=== PATIENT | male | born 1945 | race Caucasian/White ===

== ENCOUNTER → 2018-11-01 06:25 | Outpatient (CLI) | payer MEDICARE, OTHER, SELFPAY ==
[2018-10-18 13:47] VITALS: BMI 30.3
--- NOTE | 2018-11-01 06:26 | MRI_ITS ---
STUDY: MRI LEFT HAND WITH AND WITHOUT CONTRAST (ATTENTION INDEX FINGER) REASON FOR EXAM: Pain, swelling and redness of the distal phalanx after radiation therapy of the finger 30 years ago. TECHNIQUE: Standardized fat and water weighted pulse sequences were obtained in all 3 orthogonal planes before and after intravenous administration of 19 mL of Dotarem. COMPARISON: None. FINDINGS: There is deformity of the distal phalanx of the index finger with thinning of the ungual tuft (T1 coronal image 7). There is bone edema of the distal phalanx of the index finger (inversion recovery coronal images 6, 7) with contrast enhancement (postcontrast T1 coronal image 7). Normal middle and distal phalanges of the index finger. Normal visualized distal second metacarpal. Normal flexor and extensor tendons of the index finger. There is a very small subchondral cyst in the second metacarpal head (inversion recovery coronal image 7). Otherwise, normal second metacarpophalangeal joint. Normal proximal and distal interphalangeal joints of the second digit. There is edema in the subcutis adipose space of the distal aspect of the second digit with skin thickening (inversion recovery coronal images 4-7) and contrast enhancement (postcontrast T1 axial images 23-26), especially at the ulnar aspect. There is no discrete soft tissue mass. MRI/Upper Ext No Joint W/WO Cont IMPRESSION: Deformity of the second distal phalanx with bone edema and edema in the subcutis adipose space of the distal second finger with skin thickening, apparently a sequelae of remote radiation therapy. Electronically Signed: Ayo Hayward MD at 8:55 EDT Tel , Service support ,
[2018-11-01 06:51] LABS: CREATININE FINGERSTICK 1.2 mg/dL (0.70-1.30); EGFR FINGERSTICK > 60.0000 mL/min (>60)
== END ==
PROVIDERS: Family Provider Family Medicine; PCP Family Medicine; Referring Provider Surgery; Visit Provider Surgery
DX: Z01.812 Encounter for preprocedural laboratory examination (principal); Q79.9 Congenital malformation of musculoskeletal system, unspecified; D49.2 Neoplasm of unspecified behavior of bone, soft tissue, and skin; L98.499 Non-pressure chronic ulcer of skin of other sites with unspecified severity; L60.9 Nail disorder, unspecified; T66.XXXS Radiation sickness, unspecified, sequela; Z80.8 Family history of malignant neoplasm of other organs or systems; Z85.828 Personal history of other malignant neoplasm of skin
CPT/HCPCS: 73220; A9575

== ENCOUNTER 2018-11-10 10:50 | Day surgery (SDC) | payer MEDICARE, OTHER, SELFPAY ==
[2018-10-18 13:47] VITALS: BMI 30.3
--- NOTE | 2018-11-09 20:10 | HP.PCM_ITS ---
History and Physical Date of Admission: 11/10/18 HISTORY OF PRESENT ILLNESS 73 year old man presents with a painful nonhealing radiation ulcer left index finger tip. Patient is right hand dominant. He states he has received radiation therapy to his left index finger tip about 50 years ago for wart growth underneath his nail. It lasted about 10 years before he noticed some recurrence of the growth. Over the years, he developed a firmness to the finger tip with fibrosis and a decrease in the fat pad. He had an xray done to his left index finger on 10/02/18. It showed a deformity of the distal phalanx index finger with well-defined defect involving the mid to distal radial aspects. There are adjacent small bony fragments. He is able to do his activities of daily living until the finger tip gets bumped when he gets a sharp pain. An MRI was done on 11/01/18 which showed deformity of the second distal phalanx with bone edema and edema in the subcutis adipose space of the distal second finger with skin thickening, apparently a sequelae of remote radiation therapy. He presents today for further evaluation and treatment. PAST MEDICAL HISTORY Cataracts, bilateral Skin cancer High blood pressure PAST SURGICAL HISTORY Achilles tendon repair hernia repair nasal polypectomy ALLERGIES No Known Allergies MEDICATIONS Ibuprofen [Advil] Losartan Potassium Metronidazole [Metrogel] Omeprazole [Prilosec] aspirin clobetasol 0.05 % topical cream sildenafil doxycycline monohydrate FAMILY HISTORY Mother - Hypertension, Skin cancer SOCIAL HISTORY Smoking Status: Former smoker alcohol intake: current details: A LITTLE HERE AND THERE substance use type: does not use REVIEW OF SYSTEMS General - Denies fever, fatigue, and weight loss. Eyes - Has cataracts. Denies glaucoma. ENT - Denies nasal congestion and sore throat. Endocrine - Denies excessive thirst and urination. Skin - Has personal history of skin cancer, basal cell carcinoma excised from right caodaism and from the right back. Has painful nonhealing radiation ulcer left index finger tip. Musculoskeletal - Denies joint pain, joint stiffness, weakness of muscles and joints, back pain, and arthritis. Neuro - Denies headaches. Cardiovascular - Denies chest pain, fatigue, and shortness of breath with exertion. Psych - Denies anxiety and depression. Respiratory - Denies chronic cough and shortness of breath. Gastrointestinal - Denies nausea, vomiting, diarrhea, and constipation. Hematologic - Denies abnormal bruising and bleeding. Genitourinary - Denies hematuria and urinary frequency. PHYSICAL EXAMINATION General - Alert and Oriented HEENT - PERRL. EOMI. Throat is clear. No suspicious lesions noted. Neck - Supple and nontender. No cervical adenopathy. No suspicious lesions noted. Lungs - Clear to auscultation. Heart - Regular rate and rhythm. Abdomen - Soft and nondistended. Extremities - FROM. No axillary adenopathy. Radial pulses are palpable. On the left index finger tip is a firm nodular tip with a decrease in the volar fat pad. There is a small ulceration present in the radiated tip area. In the subungual area is a lesion that has caused some nail growth irregularities. Fingers are warm with good capillary refill. No sensory deficits. Neuro - CN II-XII grossly intact. Psych - Normal mood and affect. ASSESSMENT 1. Nonhealing radiation ulcer left index finger tip. 2. Subungual mass left index finger. 3. Deformity nail bed left index finger. 4. Late effect radiation left index finger. 5. Bony defect radial aspect distal phalanx left index finger. 6. Personal history of skin cancer. 7. Family history of skin cancer. PLAN Xray reviewed. With the bony defect present, an MRI was done to further assess the bony defect. MRI showed deformity of the second distal phalanx with bone edema and edema in the subcutis adipose space of the distal second finger with skin thickening, apparently a sequelae of remote radiation therapy.. Patient is at risk for osteomyelitis, so will write a script for Doxycycline that he can use when he notices a flare up such as increasing redness, pain, or swelling. First we need to establish a diagnosis. Will need excision of this subungual mass which includes a partial ostectomy and excision of the nail bed complex. The nonhealing radiation ulcer will also be excised as well. The wound will be left open initially. Will proceed with daily Silver dressing changes. Depending on the culture and the Pathology, a positive culture will need antibiotic therapy. If osteomyelitis is present, then IV antibiotics would be necessary. Also will [facility] for [facility] for HBO treatments which should help the healing process. Would like to do the HBO treatments prior to wound closure. To maintain length, a two stage thenar flap or a two stage cross finger flap would be performed. The second stage division and inset of the flap would occur in 3 weeks. At the time of the excision, a frozen section will be done and sent to Pathology for analysis to rule out carcinoma. If carcinoma is present, then tip amputa tion would be necessary. Surgery will be done on an outpatient basis under general anesthesia. Patient was informed of the risks and complications of the procedure including alternatives to surgery. These were discussed with the patient personally. Patient voices understanding and wishes to proceed. Some of the risks and complications were included in a form from the [employer]. Some of the risks and complications that were discussed included but were not inclusive of failure to diagnose including symptom relief, pain, infection, numbness, stiffness, loss of digit, RSD (CRPS), need for further surgery, contracture, and wound healing problems.
[2018-11-10] MEDS: Mupirocin Ointment 22gm Tube 1 APPLIC (01:00)
[2018-11-10 11:05] VITALS: BP 146/80; PULSE 83; RESP 18; TEMP 36.5; O2SAT 98; BMI 29.3
[2018-11-10] MEDS: Cefazolin 2 GM in 0.9% Normal Saline 100 ML IV (12:00)
--- NOTE | 2018-11-10 12:15 | LES_PTH ---
PATIENT: GIRMA ARMIJO LOC: [facility] [place] U#:[id number] AGE/SX: 73/M ROOM: RE11/10/[address]: Dr. Eduardo Barbour MD : 1945 BED: DIS: 11/10/2018 SPEC #: [id number] RECD: 11/10/18 12:48 STATUS: LORENZA MARTIN #: [id number] AJITH: 11/10/18 12:[address]: Eduardo Barbour DEPT: SURGICAL PATHOLOGY RECD BY: Yelitza Mccormick ENTERED: 11/10/18 13:17 SP TYPE: Lesion OTHR DR: Dr. Felipe Dias III, MD Tissues: A - Skin of finger, NOS B - Skin of finger, NOS C - Bone of hand, NOS Procedures: Decalcification bone/plaque Frozen Section (charge) Surgery Specimen Level III HEADER OPERATION: Surgical prep index finger with excision radiation ulcer PRE-OP DIAGNOSIS: Nonhealing radiation ulcer left hand fingertip; subungual mass left index finger; deformity nailbed left index finger; late effect radiation left index finger; bony defect radial aspect distal phalanx left index finger, personal and family history skin cancer TISSUE SUBMITTED: A - Subungual lesion left index finger, B - Left hand index finger soft tissue, C - Left hand index finger bone FROZEN SECTION DIAGNOSIS A. Subungual lesion left index finger, biopsy: Negative for malignancy. MONICA:cindy 11/10/18 MICROSCOPIC DIAGNOSIS A. Subungual lesion left index finger, biopsy: Hyperkeratosis and solar elastosis. Negative for malignancy. B. Soft tissue left index finger: Acute and chronic inflammation and granulation tissue reaction. Hyperkeratosis and solar elastosis. See comment. C. Left hand index finger bone, biopsy: Fragments of bone, negative for acute osteomyelitis. MONICA:cindy 11/16/18 COMMENT B. Pieces of hyperkeratotic skin consistent with nail are also noted. MICROSCOPIC DESCRIPTION Slides are reviewed. GROSS DESCRIPTION A - Received fresh for frozen section diagnosis labeled with the patient's name is a specimen designated subungual lesion left index finger. The specimen consists of a piece of coburn-white skin, crescent-shaped, measuring 1 x 0.2 x 0.1 cm. The entire specimen is submitted for frozen section diagnosis in one cassette. / SJ: 11/10/18 B - Received in fixative is one container labeled with the patient's name and designated soft tissue left index finger. The specimen consists of multiple irregular fragments of coburn soft tissue, a portion of skin and a portion of fingernail. The coburn portions of soft tissue measure in aggregate 1.5 x 1.5 x 0.5 cm. The skin portion measures 1.4 x 0.6 cm and is excised to a depth of 0.5 cm. The skin surface is coburn-white and firm. The portion of fingernail measures 1.8 cm in length x 0.8 cm in width x 0.1 cm in thickness. The nail surface is smooth. The nail is translucent to focally opaque. The specimen is totally submitted in two cassettes as follows: 1 - skin and soft tissue, 2 - nail. / CE: 11/13/18 C - Received in fixative is one container labeled with the patient's name and designated left hand index finger bone. The specimen consists of five coburn-yellow fragments of bone that in aggregate measure 0.5 x 0.3 x 0.2 cm. The specimen is totally submitted after decalcification in one cassette. / CE: 11/13/18 TC:3 CPT: 24188 x3, 53001, 71645
--- NOTE | 2018-11-10 13:14 | PCM.OPRPT ---
Report of Operation Date of Procedure: 11/10/18 Pre-Operative Diagnosis: 1. Nonhealing radiation ulcer left index finger tip. 2. Subungual mass left index finger. 3. Deformity nail bed left index finger. 4. Late effect radiation left index finger. 5. Bony defect radial aspect distal phalanx left index finger. 6. Personal history of skin cancer. 7. Family history of skin cancer. Post-Operative Diagnosis: Same. Surgery/Procedure Performed:: Surgical preparation left index finger with excision nonhealing radiation ulcer scar contour deformity and subungual mass with frozen section and nail bed complex deformity with partial ostectomy distal phalanx for osteomyelitis (1.44 cm2). Description of Surgical Findings:: 73 year old man presents with a painful nonhealing radiation ulcer left index finger tip. Patient is right hand dominant. He states he has received radiation therapy to his left index finger tip about 50 years ago for wart growth underneath his nail. It lasted about 10 years before he noticed some recurrence of the growth. Over the years, he developed a firmness to the finger tip with fibrosis and a decrease in the fat pad. He had an xray done to his left index finger on 10/02/18. It showed a deformity of the distal phalanx index finger with well-defined defect involving the mid to distal radial aspects. There are adjacent small bony fragments. He is able to do his activities of daily living until the finger tip gets bumped when he gets a sharp pain. An MRI was done on 11/01/18 which showed deformity of the second distal phalanx with bone edema and edema in the subcutis adipose space of the distal second finger with skin thickening, apparently a sequelae of remote radiation therapy. Patient was informed of the risks and complications of the procedure including alternatives to surgery. These were discussed with the patient personally. Patient voices understanding and wishes to proceed. Some of the risks and complications were included in a form from the [employer]. Encouraged patient to stop smoking as it may have deleterious effects on wound healing. Total tourniquet time - 22 minutes. Size of defect left index finger tip - 1.2 x 1.2 x 0.7 cm. 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 Specimen's removed: 1. Subungual mass left index finger to Pathology as a frozen section. 2. Nonhealing radiation ulcer scar contour deformity and nail bed complex deformity left index finger soft tissue to Pathology and Microbiology. 3. Nonhealing radiation ulcer scar contour deformity and nail bed complex deformity left index finger bone to Pathology and Microbiology. Drains: None. Estimated Blood Loss (mL): 2 ml. Description of Procedure: Patient was taken to OR in supine position and was given IV sedation. The left hand was prepped and draped in the usual fashion. SCD's were placed for DVT prophylaxis. Perioperative antibiotics were given intravenously. Using xylocaine and epinephrine, a digital metacarpal block was administered. After waiting 5 minutes for the anesthetic to take effect, I placed a digital tourniquet. Under loupe magnification, I proceeded with removal of the nail plate with a scalpel and elevator. There was irregular thickening of the nail bed. This area of irregular thickening was excised and sent to Pathology as a frozen section. Frozen section showed no carcinoma. Exposed bone was seen. At the tip of the finger, there was an intermittent nonhealing radiation ulcer scar contour deformity that was excised down to the distal phalanx. Using a rongeur, a partial ostectomy of the distal phalanx was done for osteomyelitis. About half the bone was excised. The bone was very soft indicative of radiation damage, or age, or osteomyelitis. A rasp was used to smooth out the bony edges. The rest of the nail bed complex including matrix was excised. Half the soft tissue and half the bone was sent to Pathology for analysis to rule out carcinoma and to evaluate for osteomyelitis. Half the soft tissue and half the bone was sent to Microbiology for culture. A positive culture will necessitate antibiotic therapy. The size of the wound after excision was 1.2 x 1.2 x 0.7 cm. The tourniquet was released after 22 minutes. Hemostasis was obtained with electrocautery. The wound was dressed with Aquacel Silver followed by 4-0 Nylon tie over stent suture dressing. The finger was then dressed with 2x2 gauze followed by 2 inch Alex wrap. Patient tolerated the procedure well and was sent to PACU in satisfactory condition. Patient will be sent home on antibiotics and pain medication. Patient will followup in the office on Tuesday for a Silver dressing change and to instruct the patient and family on the Silver dressing changes. Will also discuss the Pathology report and the Microbiology report. A positive culture will necessitate antibiotic therapy. Grafts/Implants Used: None. - Complications None. - Admit VTE Documentation VTE Present on Admission: No VTE Mechan Device Prophylaxis: SCD's VTE Pharm Prophylaxis ordered?: No Code Visit Surgery Charges CPT - 75529 ICD-10 - L98.499, L60.9, D49.2, T66.xxxS, Z85.828, Z80.8 93989 Q79.9, T66.xxxS, L98.499, L60.9, D49.2, Z85.828, Z80.8
[2018-11-10 13:19] VITALS: BP 145/72; BP 146/80; PULSE 85; RESP 14; TEMP 37.1; O2SAT 95
[2018-11-10 13:25] VITALS: BP 138/71; BP 146/80; PULSE 85; RESP 16; O2SAT 96
--- NOTE | 2018-11-10 13:29 | PCM.DC ---
You will use the following diet at home:: No restrictions Discharge Activity: May not drive while taking narcotic pain medications., May Shower - tomorrow. place plastic bag over left hand when showering., - - elevate left hand. no heavy lifting left hand. May shower in (days): 1 - wear plastic bag over left hand when showering. May resume sexual activity in: No Restrictions Weight Bearing Status: Weight bearing as tolerated Lifting Restrictions: 20 lbs. Keep extremity elevated above heart level: Left Arm Call your doctor if your incision/area has: Continuous Slow Oozing, Sudden Increased Bleeding, Increased Pain/ Swelling, Increased Redness, Foul Smelling Discharge, Swelling at the incision site Call your doctor if you observe: Fever of 101 or Higher, Coldness, Increased Pain, Shortness of breath, Chest pain, Calf discomfort, Uncontrolled pain Suture Line Care: - - daily aquacel silver dressing changes. Change Dressing in (Days):: 3 - will change dressing in office and instruct patient on aquacel silver dressing changes. Cleanse incision/area with: - - wear plastic bag over left hand when showering. Additional Instructions: Patient has Doxycycline at home and will continue them postoperatively. Allergies/Adverse Reactions: Allergies No Known Allergies Allergy (Verified 11/07/18 10:53) Medications to take at Discharge Losartan Potassium 25 mg PO DAILY 09/03/16 Omeprazole [Prilosec] 20 mg PO QHS 09/03/16 aspirin 81 mg tablet,delayed release 81 mg PO DAILY 10/09/18 clobetasol 0.05 % topical cream 1 applic TOPICAL .PRN g 10/09/18 sildenafil 100 mg tablet 100 mg PO DAILY PRN 10/09/18 Metronidazole [Metrogel] 60 gm TP DAILY 11/07/18 Doxycycline Monohydrate 100 mg PO BID 30 Days #60 cap 11/10/18 Lactobacillus Acidophilus/Fos [Acidophilus Probiotic Tablet] 1 ea PO BID #60 tab 11/10/18 Oxycodone HCl/Acetaminophen [Percocet 5/325] 1 - 2 tab PO 4X/DAY PRN PRN 5 Days #40 tab 11/10/18 The following prescriptions were given: Oxycodone HCl/Acetaminophen [Percocet 5/325] 1 - 2 tab PO 4X/DAY PRN PRN 5 Days #40 tab PRN Reason: Pain Doxycycline Monohydrate 100 mg PO BID 30 Days #60 cap Lactobacillus Acidophilus/Fos [Acidophilus Probiotic Tablet] 1 ea PO BID #60 tab Primary Care Physician: Felipe Dias III, MD [Primary Care Provider] - Test Results: Test results from this visit will be discussed in further detail at your follow-up appointment, if applicable. Please Follow Up With: Eduardo Barbour MD When: tuesday11/13/18. Call [phone] for appt. Proposed Discharge Date: 11/10/18
[2018-11-10 13:30] VITALS: BP 133/83; BP 146/80; PULSE 81; RESP 16; O2SAT 96
--- NOTE | 2018-11-10 13:33 | DCINST_ITS ---
You will use the following diet at home:: No restrictions Discharge Activity: May not drive while taking narcotic pain medications., May Shower - tomorrow. place plastic bag over left hand when showering., - - elevate left hand. no heavy lifting left hand. May shower in (days): 1 - wear plastic bag over left hand when showering. May resume sexual activity in: No Restrictions Weight Bearing Status: Weight bearing as tolerated Lifting Restrictions: 20 lbs. Keep extremity elevated above heart level: Left Arm Call your doctor if your incision/area has: Continuous Slow Oozing, Sudden Increased Bleeding, Increased Pain/ Swelling, Increased Redness, Foul Smelling Discharge, Swelling at the incision site Call your doctor if you observe: Fever of 101 or Higher, Coldness, Increased Pain, Shortness of breath, Chest pain, Calf discomfort, Uncontrolled pain Suture Line Care: - - daily aquacel silver dressing changes. Change Dressing in (Days):: 3 - will change dressing in office and instruct patient on aquacel silver dressing changes. Cleanse incision/area with: - - wear plastic bag over left hand when showering. Additional Instructions: Patient has Doxycycline at home and will continue them postoperatively. Allergies/Adverse Reactions: Allergies No Known Allergies Allergy (Verified 11/07/18 10:53) Medications to take at Discharge Losartan Potassium 25 mg PO DAILY 09/03/16 Omeprazole [Prilosec] 20 mg PO QHS 09/03/16 aspirin 81 mg tablet,delayed release 81 mg PO DAILY 10/09/18 clobetasol 0.05 % topical cream 1 applic TOPICAL .PRN g 10/09/18 sildenafil 100 mg tablet 100 mg PO DAILY PRN 10/09/18 Metronidazole [Metrogel] 60 gm TP DAILY 11/07/18 Doxycycline Monohydrate 100 mg PO BID 30 Days #60 cap 11/10/18 Lactobacillus Acidophilus/Fos [Acidophilus Probiotic Tablet] 1 ea PO BID #60 tab 11/10/18 Oxycodone HCl/Acetaminophen [Percocet 5/325] 1 - 2 tab PO 4X/DAY PRN PRN 5 Days #40 tab 11/10/18 The following prescriptions were given: Oxycodone HCl/Acetaminophen [Percocet 5/325] 1 - 2 tab PO 4X/DAY PRN PRN 5 Days #40 tab PRN Reason: Pain Doxycycline Monohydrate 100 mg PO BID 30 Days #60 cap Lactobacillus Acidophilus/Fos [Acidophilus Probiotic Tablet] 1 ea PO BID #60 tab Primary Care Physician: Felipe Dias III, MD [Primary Care Provider] - Test Results: Test results from this visit will be discussed in further detail at your follow- up appointment, if applicable. Please Follow Up With: Eduardo Barbour MD When: tuesday11/13/18. Call [phone] for appt. Proposed Discharge Date: 11/10/18
[2018-11-10 13:34] VITALS: BP 133/70; BP 146/80; PULSE 73; RESP 16; TEMP 37.2; O2SAT 95
[2018-11-10 13:58] VITALS: BP 146/80
== END 2018-11-10 14:03 | disposition home or self-care (01) ==
LOC: SDC 10:51 → AC 10:51
PROVIDERS: Family Provider Family Medicine; PCP Family Medicine; Referring Provider Surgery; Visit Provider Surgery
PROC: (CPT 26236; principal; 2018-11-10 12:00)
DX: L98.499 Non-pressure chronic ulcer of skin of other sites with unspecified severity (principal); L85.9 Epidermal thickening, unspecified; L57.8 Other skin changes due to chronic exposure to nonionizing radiation; X32.XXXA Exposure to sunlight, initial encounter; Y93.9 Activity, unspecified; Y92.9 Unspecified place or not applicable; Y99.9 Unspecified external cause status; T66.XXXS Radiation sickness, unspecified, sequela; L60.9 Nail disorder, unspecified; Q79.9 Congenital malformation of musculoskeletal system, unspecified; Z85.828 Personal history of other malignant neoplasm of skin; Z80.8 Family history of malignant neoplasm of other organs or systems; I10 Essential (primary) hypertension; Z87.891 Personal history of nicotine dependence; Z79.82 Long term (current) use of aspirin; Z79.899 Other long term (current) drug therapy
CPT/HCPCS: 26236; 87070; 87075; 87077; 87102; 87176; 87186; 87205; 87206; 88304; 88305; 88311; 88331; J7120

== ENCOUNTER → 2020-03-05 17:45 | Outpatient (CLI) | payer MEDICARE, OTHER, SELFPAY ==
[2019-01-17 09:16] VITALS: BMI 29.3
== END ==
PROVIDERS: PCP Family Medicine
DX: R19.7 Diarrhea, unspecified (principal)
CPT/HCPCS: 87635; 94799; U0003

== ENCOUNTER → 2022-10-15 | Outpatient (CLI) | payer MEDICARE, OTHER, SELFPAY ==
--- NOTE | 2022-10-15 08:09 | MRI_ITS ---
STUDY: MR PELVIS WITH T WITHOUT CONTRAST REASON FOR EXAM: Male, 76 years old. ELEVATED PSA TECHNIQUE: Standardized fat and water weighted pulse sequences were obtained in all 3 orthogonal planes, pre-and post contrast administration. IV 19ml Clariscan was administered for the contrast portion of the examination. COMPARISON: None. FINDINGS: Prostate measures 4.3 cm AP by 3.88 cm craniocaudal by 3.96 cm transverse. Within the central zone anteriorly and inferiorly there is a nodule which demonstrates contrast enhancement at its periphery of the lower signal centrally. This nodule measures 4.38 x 1 1.41 cm. This is seen on series 11 image 30. In the right anterior central zone on series 11 image 29 there is a nodule with subtle contrast enhancement as per free and central lower signal within nodule measuring 1.26 x 0.79 cm. In the peripheral zone posterior laterally on the left series 11 image 30 demonstrates a nodule with peripheral contrast enhancement measuring 1.23 x 1.28 cm. The capsule of the prostate is normal in appearance. Normal urinary bladder. Normal visualized small intestine. Normal visualized colon. There is no pelvic fluid. There is no pelvic mass lesion or lymphadenopathy. Normal visualized pelvic arteries. Normal osseous structures. Normal abdominal wall. MRI/Pelvis W/WO Contrast IMPRESSION: Enlarged prostate with multiple nodules in the central and peripheral zones detailed above. If biopsy is contemplated attention towards these nodules is advised if clinically warranted. Electronically Signed: Diogenes Soriano MD, JANINA at 8:53 EDT ,
[2022-10-15 08:50] LABS: CREATININE FINGERSTICK < 0.9 mg/dL (0.70-1.30); EGFR FINGERSTICK > 60.0000 mL/min (>60)
== END | disposition home or self-care (01) ==
LOC: MRI 08:06
PROVIDERS: PCP Family Medicine; Referring Provider Urology; Visit Provider Urology
DX: R97.20 Elevated prostate specific antigen [PSA] (principal)
CPT/HCPCS: 72197; A9575

== ENCOUNTER → 2023-04-07 | Outpatient (CLI) | payer MEDICARE, OTHER, SELFPAY ==
--- NOTE | 2023-04-07 | PROSBIL_PTH ---
PATIENT: GIRMA ARMIJO LOC: JARET U#:[id number] AGE/SX: 77/M ROOM: RE04/07/[address]: Dr. Amari Rascon MD : 1945 BED: DIS: 04/07/2023 SPEC #: [id number] RECD: 04/07/23 16:18 STATUS: LORENZA REVic #: [id number] AJITH: 04/07/23 00:[address]: Amari Rascon DEPT: SURGICAL PATHOLOGY RECD BY: Augustine Garcia ENTERED: 04/08/23 07:58 SP TYPE: PROST BX MILO DR: Dr. Jayme Reyse MD Tissues: A - PROSTATE RIGHT B - PROSTATE RIGHT C - PROSTATE RIGHT D - PROSTATE LEFT E - PROSTATE LEFT F - PROSTATE LEFT Procedures: PROSTATE BX HEADER OPERATION: Prostate biopsy PRE-OP DIAGNOSIS: Elevated PSA TISSUE SUBMITTED: A - Right apex, B - Right mid, C - Right base, D - Left apex, E - Left mid, F - Left base MICROSCOPIC DIAGNOSIS A. Right prostate, apex, core biopsy: Focal high-grade prostatic intraepithelial neoplasia (HGPIN). See comment. B. Right prostate, mid, core biopsy: Prostatic adenocarcinoma. [place] grade: 3+4=7 Number of cores involved: 1/2 Proportion of tissue involved: ~20% Perineural invasion: Not identified. Greatest tumor length: 0.5 cm C. Right prostate, base, core biopsy: Prostatic adenocarcinoma. Afua grade: 4+3=7 Number of cores involved: 2/2 Proportion of tissue involved: ~70-80% Perineural invasion: present, focal. Greatest tumor length: 1.0 cm D. Left prostate, apex, core biopsy: Prostatic tissue, negative for malignancy. Focal mild chronic inflammation. E. Left prostate, mid, core biopsy: Prostatic tissue, negative for malignancy. Focal atrophy. F. Left prostate, base, core biopsy: Prostatic tissue, negative for malignancy. SJ:cindy 04/11/2023 COMMENT A. Immunohistochemistry ([id number]) supports the above diagnosis. Case has been reviewed in consultation with Dr. Amador who concurs with the above diagnosis. IDC:AM MICROSCOPIC DESCRIPTION Slides are reviewed. GROSS DESCRIPTION A - Received is one container designated prostate, right apex. The specimen consists of one elongated fragment of light coburn-white soft tissue measuring 0.5 cm in length and 0.1 cm in diameter. The specimen is totally submitted in one cassette. B - Received is one container designated prostate, right mid. The specimen consists of two elongated fragments of light coburn-white soft tissue measuring 1.5 and 1.7 cm in length and 0.1 cm in diameter. The specimen is totally submitted in one cassette. C - Received is one container designated prostate, right base. The specimen consists of two elongated fragments of light coburn-white soft tissue each measuring 1.0 cm in length and 0.1 cm in diameter. The specimen is totally submitted in one cassette. D - Received is one container designated prostate, left apex. The specimen consists of one elongated fragment of light coburn-white soft tissue measuring 1.2 cm in length and 0.1 cm in diameter. The specimen is totally submitted in one cassette. E - Received is one container designated prostate, left mid. The specimen consists of two elongated fragments of light coburn-white soft tissue measuring 1.4 and 1.6 cm in length and 0.1 cm in diameter. The specimen is totally submitted in one cassette. F - Received is one container designated prostate, left base. The specimen consists of two elongated fragments of light coburn-white soft tissue each measuring 1.5 cm in length and 0.1 cm in diameter. The specimen is totally submitted in one cassette. / SJ:rg 04/08/2023 TC:0 CPT: G0146
--- NOTE | 2023-04-07 | IMM_PTH ---
PATIENT: GIRMA ARMIJO LOC: JARET U#:[id number] AGE/SX: 77/M ROOM: RE04/07/[address]: Dr. Amari Rascon MD : 1945 BED: DIS: 04/07/2023 SPEC #: [id number] RECD: 04/11/23 14:45 STATUS: LORENZA REQ #: [id number] AJITH: 04/07/23 00:[address]: Amari Rascon DEPT: IMMUNOHISTOCHEMISTRY RECD BY: Yelitza Mccormick ENTERED: 04/11/23 14:46 SP TYPE: IMMUNO OTHR DR: Dr. Jayme Reyes MD Tissues: A - PROSTATE RIGHT Procedures: P40 (add) 34BE12 (initial) PHYSICIAN & INSTITUTION [place] [phone] SPECIMEN INFORMATION: Tissue Source: Right prostate, apex, core biopsy Clinical Info: Elevated PSA Specimen Number: [id number] CPT code: 91952, 56405 METHODOLOGY: Deparaffinized sections of prefer/formalin-fixed tissue or PAP/DQ stained slides are incubated with monoclonal/polyclonal antibodies/oligonucleotide probes. Localization is made via biotin free immunoperoxidase method. Appropriate controls are performed and reacted as expected. Results on target cell population are indicated in the following table: RESULTS: ANTIBODY / CLONE RESULT Block A P40 (BC28) positive 34BE12 (34BE12) positive These tests were developed and their performance characteristics determined by [facility]. They may not have been cleared or approved by the U.S. Food and Drug Administration. The FDA has determined that such clearance or approval is not necessary. The above immunohistochemical/dualISH markers are ordered and reviewed by the Pathologist. INTERPRETATION: A. Right prostate, apex, core biopsy: High-grade prostatic intraepithelial neoplasia (HGPIN). MONICA:cindy 04/12/2023
== END | disposition home or self-care (01) ==
LOC: LABSPEC 16:25
PROVIDERS: PCP Family Medicine; Referring Provider Urology; Visit Provider Urology
DX: R97.20 Elevated prostate specific antigen [PSA] (principal)
CPT/HCPCS: 88305; 88341; 88342; G0416

== ENCOUNTER 2023-06-08 11:59 | Observation (INO) | payer MEDICARE, OTHER, SELFPAY ==
[2023-05-31 07:19] LABS: Hematocrit 43.5 % (40-54); Hemoglobin 14.6 g/dL (13.0-16.5); Mean Corp Hgb Conc 33.6 g/dL (32-36); Mean Corpuscular Hgb 32.8 pg (27.0-32.0); Mean Corpuscular Volume 97.8 fL (80-94); Mean Platelet Vol. 10.5 fl (6.2-12.0); Platelet Count 177 K/mm3 (150-450); RBC Distribution Width CV 11.9 % (11.6-14.6); RBC Distribution Width SD 43.1 fl (35.1-43.9); Red Blood Count 4.45 M/mm3 (4.6-6.2); White Blood Count 5.1 K/mm3 (4.4-11.0)
[2023-06-08] VITALS (11 sets, daily range): BP systolic 117–157; BP diastolic 59–85; PULSE 84–103; RESP 14–18; TEMP 36.3–36.8; O2SAT 92–99; BMI 29.2
--- NOTE | 2023-06-08 | IMM_PTH ---
PATIENT: GIRMA ARMIJO LOC: MS3 U#:[id number] AGE/SX: 77/M [place] [facility] [place] RE06/08/[address]: Dr. Amari Rascon MD : 1945 BED: 1 DIS: 06/09/2023 SPEC #: [id number] RECD: 06/10/23 15:05 STATUS: LORENZA REVic #: [id number] AJITH: 06/08/23 00:[address]: Amari Rascon DEPT: IMMUNOHISTOCHEMISTRY RECD BY: Yelitza Mccormick ENTERED: 06/10/23 15:06 SP TYPE: IMMUNO OTHR DR: Dr. Jayme Reyes MD Tissues: C - Prostate, NOS Procedures: 34BE12 (add) Pankeratin (initial) P40 (add) PSAP (add) PHYSICIAN & INSTITUTION [place] [id number] SPECIMEN INFORMATION: Tissue Source: C - Prostate Clinical Info: Prostate cancer Specimen Number: [id number] C1 CPT code: 03569, 91275 x3 METHODOLOGY: Deparaffinized sections of prefer/formalin-fixed tissue or PAP/DQ stained slides are incubated with monoclonal/polyclonal antibodies/oligonucleotide probes. Localization is made via biotin free immunoperoxidase method. Appropriate controls are performed and reacted as expected. Results on target cell population are indicated in the following table: RESULTS: ANTIBODY / CLONE RESULT Block C1 PSAP (PASE/4LJ) positive AE1-3 (AE1/AE3/PCK26) positive 34BE12 (34BE12) negative P40 (BC28) negative These tests were developed and their performance characteristics determined by [facility]. They may not have been cleared or approved by the U.S. Food and Drug Administration. The FDA has determined that such clearance or approval is not necessary. The above immunohistochemical/dualISH markers are ordered and reviewed by the Pathologist. INTERPRETATION: Christiano Prostate, apex, radical prostatectomy: Invasive adenocarcinoma. AM:cindy 06/13/2023
[2023-06-08] MEDS: Lactated Ringers 1,000 ML 15 ML IV (06:22)
--- NOTE | 2023-06-08 07:30 | HP.PCM_ITS ---
HPI - General General Date of Service: 06/08/23 Chief Complaint: Prostate cancer HPI Narrative GIRMA ARMIJO, is a 77 M who presents for a radical prostatectomy bilateral nerve sparing he has a history of Afua 74+3 prostate cancer PSA of 7.71 this to be surgery for curative intent we discussed the risk of surgery include the risk of incontinence lack of erections and the risk of failure to cure him of cancer and needing worse procedures or treatments after this all his questions were addressed and working to proceed. [facility] Medical History (Updated 05/30/23 @ 11:10 by Marian Ramey) Arthritis Cancer Cataracts, bilateral Former smoker Ganglion, right shoulder Gastric reflux High blood pressure History of stress test Leg cramps Mass of skin of right shoulder Skin cancer Wears glasses Home Medications Losartan Potassium 25 mg PO DAILY 09/03/16 [History Last Taken 06/08/23 04:30] aspirin 81 mg tablet,delayed release (Adult Low Dose Aspirin) 81 mg PO DAILY 10/09/18 [History Last Taken 05/27/23] clobetasol 0.05 % topical cream 1 applic topical .PRN 10/09/18 [History Last Taken Unknown] sildenafil 100 mg tablet (Viagra) 100 mg PO DAILY PRN ed 10/09/18 [History Last Taken Unknown] metronidazole 1 % topical gel 1 applic topical DAILY 11/07/18 [History Last Taken Unknown] apremilast 30 mg tablet (Otezla) 30 mg PO DAILY 05/30/23 [History Last Taken Unknown] doxycycline hyclate 20 mg tablet 20 mg PO DAILY 05/30/23 [History Last Taken Unknown] famotidine 20 mg tablet (Acid Controller) 20 mg PO DAILY 05/30/23 [History Last Taken Unknown] ibuprofen 200 mg tablet (Advil) 200 mg PO DAILY 05/30/23 [History Last Taken 05/30/23] mdvtxead-ol-qyndv 300 mcg-K 60 mcg-lycop 600 mcg-lutein 300 mcg tablet (Centrum Silver Men) 1 tab PO DAILY 05/30/23 [History Last Taken Unknown] Allergy/AdvReac Type Severity Reaction Status Date / Time lisinopril Allergy Intermediate COUGH Verified 06/08/23 06:15 Family History Mother Hypertension Skin cancer Surgical History (Updated 05/30/23 @ 11:10 by Marian Ramey) History of Achilles tendon repair History of ankle surgery History of hernia repair History of nasal polypectomy Social History Smoking Status: Former smoker alcohol intake: current details: A LITTLE HERE AND THERE substance use type: does not use additional social history: DOES USE ASPIRIN 81 MG DOES USE IBUPROFEN Vital Signs Vital Signs Vital Signs: 06/08/23 06:18 06/08/23 06:22 Temperature 97.4 F L Temperature Source Temporal Pulse Rate 84 Respiratory Rate 16 Respiratory Pattern Normal Blood Pressure 154/85 H Blood Pressure Mean 108 Blood Pressure Source Monitor Blood Pressure Position Semi-Fowlers Blood Pressure Location Right Arm Pulse Ox 99 Oxygen Delivery Method Room Air Weight Weight: 92.6 kg Body Mass Index (BMI) 29.2 Results Lab / Micro Data 05/31/23 07:06
--- NOTE | 2023-06-08 07:30 | PROST_PTH ---
PATIENT: GIRMA ARMIJO LOC: MS3 U#:[id number] AGE/SX: 77/M [place] [facility] [place]/08/[address]: Dr. Amari Rascon MD : 1945 BED: 1 DIS: 06/09/2023 SPEC #: [id number] RECD: 06/08/23 13:56 STATUS: LORENZA SALAZAR #: [id number] AJITH: 06/08/23 07:[address]: Amari Rascon DEPT: SURGICAL PATHOLOGY RECD BY: Emi Padgett ENTERED: 06/09/23 10:54 SP TYPE: PROSTATE OTHR DR: Dr. Jayme Reyes MD Tissues: A - FOREIGN BODY B - Lymph node of pelvis, NOS C - Prostate, NOS Procedures: Surgery Specimen Level IV Surgery Specimen Level V HEADER OPERATION: Lap robotic radical prostatectomy, Pelvic lymph node dissection PRE-OP DIAGNOSIS: Prostate cancer TISSUE SUBMITTED: A - Mesh, B - Left pelvic lymph node, C - Prostate MICROSCOPIC DIAGNOSIS A. Mesh with tissue, excision: Fibrofatty tissue with minimal chronic inflammation. B. Left pelvic lymph node, biopsy: One out of one benign lymph node. C. Prostate, radical prostatectomy: Adenocarcinoma. See synoptic report below. AM:cindy 06/13/2023 COMMENT C. PROSTATE CANCER (RADICAL) SUMMARY: Procedure: Radical Prostatectomy Prostate Size: Weight: 68 gm Size: 4.5 x 4.3 x 4.0 cm Histologic Type: Adenocarcinoma Histologic Grade: 7 (3+4) Percent of Pattern 4: 35% Percent of Pattern 5: 0 Intraductal Carcinoma: Not identified Tumor Quantitation: 3.5 x 2.5 x 1.3 cm Extraprostatic Extension: Identified, focal right apex Urinary Bladder Neck Invasion: Not identified Seminal Vesicle Invasion: Not identified Lymphvascular Invasion: Not identified Perineural Invasion: Present, frequent Margins: Positive for adenocarcinoma, apex shave (distal urethral) and right apical margin. Lymph nodes: Regional Lymph Node: One out of one lymph node negative for carcinoma (specimen `B'). Periprostatic lymph node: One out of one lymph node negative for carcinoma. Treatment Effect: Unknown Additional Pathologic Findings: Chronic inflammation and benign hyperplasia. Clinical History: PATHOLOGIC STAGE: T3 N0 Mx The above summary is in compliance with [employer] (CAP) Cancer Protocols Checklist and [place] [employer] Committee on Cancer (AJCC), Staging Manual, 8th Ed. Immunohistochemistry ([id number]) supports the above diagnosis. MICROSCOPIC DESCRIPTION Slides are reviewed. GROSS DESCRIPTION A - Received in fixative is one container labeled with the patient's name and designated mesh. The specimen consists of a light coburn mesh with adherent coburn-yellow fibrofatty tissue. The specimen measures 6.5 x 2.2 x 1.5 cm. Surgical First Assistant portions of adherent tissue are submitted in one cassette. B - Received in fixative is one container labeled with the patient's name and designated left pelvic lymph node. The specimen consists of three irregular fragments of yellow fatty tissue measuring in aggregate 5.0 x 3.0 x 0.8 cm. Distinct nodules resembling lymph nodes are not identified. The specimen is totally submitted in two cassettes. C - Received in fixative is one container labeled with the patient's name and designated prostate. The specimen consists of a prostate with attached seminal vesicles. The gland measures 4.5 cm transversely, 4.0 cm anterior-posteriorly and 4.3 cm craniocaudally and weighs 68 gm. On palpation, no nodules are found. The specimen is differentially inked as follows: anterior - red, right half - blue, left half?- green and entire posterior surface - black. The gland is cut from apex to base at approximately 34?millimeters. No distinct mass lesion is identified. Surgical First Assistant sections are submitted as follows: 1??distal urethral shave margin, 2 - proximal mucosal margin (bladder shave), 3 - right and left seminal vesicles, 4 - most basal section of prostate gland, 5-7 - apical portion of gland, 8-13 - mid to basal portion of gland, 14-17 - basal portion of gland. / AM:cindy 06/09/2023 TC:0 CPT: 30973 x2, 19944
[2023-06-08] MEDS: Cefazolin 2 GM in 0.9% Normal Saline (100mL Bag) 100 ML IV (07:58)
[2023-06-08] MEDS: Bupivacaine Mpf 0.5% 30 ML VIAL (08:25)
--- NOTE | 2023-06-08 12:00 | DCINST_ITS ---
Discharge Instructions Diet Discharge Diet: No restrictions and Light diet - advance as tolerated Activity Discharge Activity: May Not Drive Dressing / Incision Call your doctor if your incision/area has: Sudden Increased Bleeding Catheter: Strauss to leg bag and Strauss to large bag Drain: [place] Follow Up Care Please Follow Up With: Amari Rascon MD When: Call for an appointment to remove the catheter in 2 weeks Test Results: Test results from this visit will be discussed in further detail at your follow- up appointment, if applicable. Discharge Plan Admission Primary Reason for Your Visit: Radical prostatectomy Attending Provider: Amari Rascon Primary Care Provider: Jayme Reyes Discharge Orders/Prescriptions Prescriptions: New ciprofloxacin HCl [Cipro] 500 mg tablet 500 mg PO BID Qty: 20 0RF docusate sodium [Colace] 100 mg capsule 100 mg PO BID Qty: 20 0RF oxycodone 5 mg tablet 5 mg PO Q6H PRN (Reason: pain) 7 Days Qty: 14 0RF Continued aspirin [Adult Low Dose Aspirin] 81 mg tablet,delayed release (DR/EC) 81 mg PO DAILY sildenafil [Viagra] 100 mg tablet 100 mg PO DAILY PRN (Reason: ed) clobetasol 0.05 % cream 1 applic TOPICAL .PRN Losartan Potassium 25 mg PO DAILY metronidazole 60 GM gel 1 applic topical DAILY famotidine [Acid Controller] 20 mg tablet 20 mg PO DAILY doxycycline hyclate 20 mg tablet 20 mg PO DAILY ibuprofen [Advil] 200 mg tablet 200 mg PO DAILY Centrum Silver Men [id number] mcg tablet 1 tab PO DAILY Otezla 30 mg tablet 30 mg PO DAILY Referrals / Follow Up: Jayme Reyes MD [Primary Care Provider] - Amari Rascon MD [Med Staff - Active Staff] - Disposition Disposition (needs filled in before D/C Order can be placed): Home, Self Care
--- NOTE | 2023-06-08 12:00 | OP.PCM_ITS ---
Report of Operation Date of Procedure: 06/08/23 Pre-Operative Diagnosis: Prostate cancer Post-Operative Diagnosis: The same Surgery/Procedure Performed:: Laparoscopic robotic assisted radical prostatectomy and pelvic lymph node dissection Description of Surgical Findings:: Patient was taken back to the operating room at the smooth induction of general anesthesia he was placed supine on the table he was then placed in dorsolithotomy position. The abdomen was shaved prepped and draped in usual sterile fashion we put him in beanbag position on the table flat for radical prostatectomy with a robotic approach. We tested him in Trendelenburg to make sure he secured all the pressure points were padded. We then prepped and draped the abdomen you sterile fashion I made an incision above the umbilicus placed a Veress needle into the peritoneal cavity placed a camera trocar left arm trocar and right arm trocar second right arm trocar and air seal port and suction port. After all the ports were placed robot was docked we then proceeded with the dissection first I dissected posterior to the bladder by freeing up the the vas deferens and following the vas deferens down to the prostate dissected out the right vas deferens and right seminal vesicle and then the left vas deferens and left seminal vesicle and then the dissected below the prostate and the rectum I then pulled out of the pelvis we then dropped the bladder there was prior mesh the mesh went to the midline side to excise some of the mesh off the edge on the patient's right side in order to get to the prostate because this mesh was going midline to the pubic bone once the mesh was excised off the pubic bone and excised partially is put in Endo Catch bag and then I continue with the dissection I did not do a dissection of the lymph nodes on the right side because of the mesh was overlying this causing extensive adhesions so I went to the left side and did a lymph node dissection tissue was handed off all the tissue looked negative for any involvement of cancer I then went to the prostate we cleared off the fat over the prostate identified the endopelvic fascia and opened up the endopelvic fascia in the right left side dissected up to the apex dissected out the dorsal vein complex I then used a 2 oh V-Loc stitch to secure the dorsal vein complex and then after this then we pulled back to the junction between the prostate and the bladder neck I then dissected between the past prostate and the bladder neck removing the prostate off of the bladder and then inferiorly until we got the seminal vesicles and vas deferens we then put the prostate and lateral traction I released the neurovascular bundles on the right side I then came through the pedicles in the right side and then was able to release the neurovascular bundles perfectly off the prostate off the right side all the way to the apex this was a perfect dissection perfect release I used the Enseal for some of the vascular control but once I got close to the pedicles I used clips to avoid any cauterization or electrocautery effect the vascular pedicles and also on the neurovascular bundles. Then went to the left side a release alert vascular bundle on the left side coming back to the pedicle on the left side we took some of the pedicle with the Enseal and then I took the other parts of the pedicle that were very close to the neurovascular under with clips to avoid any spreading heat to the neurovascular bundle to spare the neurovascular bundle the neurovascular bundle was came off the prostate off the left side perfectly I then circumferentially dissected the urethra then transe cted through the urethra and then the prostate was removed we then did a reanastomosis of the bladder to the urethra I used a strata fix 3 oh strata fix with 2 double arms and this ran him very nicely at the end of the anastomosis we put a new catheter in is an 18 Italian picayune tip catheter we filled the bladder up with water and there was no leakage this point then we backed out the prostate and the piece of mesh was then extracted through the umbilical port we then closed the umbilical port all the other ports were smaller than 10 mm were not closed and then all the ports were removed the patient anesthetic was reversed minimal blood loss 140 cc perfect nerve-sparing on both sides and a very good anastomosis the entire prostate was removed intact with no violations that should end of dictation Surgeon: Amari Rascon Type of Anesthesia: General Drains: maldonado 18 fr Estimated Blood Loss (mL): 140 Admit VTE Documentation VTE Present on Admission: No VTE Mechan Device Prophylaxis: SCD's VTE Pharm Prophylaxis ordered?: No
[2023-06-08] MEDS: Lactated Ringers 1,000 ML 125 ML IV ×3 (12:24→23:15)
[2023-06-08] MEDS: Ketorolac 15 MG/ML Vial IV ×3 (12:52→23:25)
[2023-06-08] MEDS: Ciprofloxacin 400 MG/200 ML BAG 200 MG IV (15:42)
[2023-06-08] MEDS: Docusate Sodium 100 MG Capsule 200 MG PO (23:24)
[2023-06-09 00:38] VITALS: BP 148/71; PULSE 99; RESP 16; TEMP 37.1; O2SAT 97
[2023-06-09] MEDS: Ciprofloxacin 400 MG/200 ML BAG 200 MG IV (04:27)
[2023-06-09 04:30] VITALS: BP 157/77; PULSE 88; RESP 16; TEMP 36.8; O2SAT 97
[2023-06-09] MEDS: Ketorolac 15 MG/ML Vial IV ×2 (06:52→13:01)
--- NOTE | 2023-06-09 07:27 | PCM.PN.BLA ---
Progress Note Status post robotic radical prostatectomy doing well urine catheter is draining well, tolerated regular diet ambulating he can go home this afternoon after lunch with the Strauss
[2023-06-09 08:30] VITALS: BP 154/70; PULSE 70; RESP 16; TEMP 36.8; O2SAT 97
[2023-06-09 09:00] VITALS: RESP 18
--- NOTE | 2023-06-09 09:35 | CASEMGMT ---
Pt. has order in for discharge. ERNESTO PRYOR in to pt. room to discuss needs at discharge. Pt. denies having any needs at this time. 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 Pt. states he had a BM earlier this morning and feels that his maldonado has not been draining since then. He asks to speak with his nurse about this, but other than that he denies having any additional questions/concerns at this time. ERNESTO PRYOR informed pt. I will make his nurse aware of his concerns related to his maldonado. ERNESTO PRYOR informed pt's nurse of pt's concern r/t the maldonado and that pt. would like to speak with her about this.
[2023-06-09] MEDS: Docusate Sodium 100 MG Capsule 200 MG PO (09:50)
[2023-06-09] MEDS: Losartan Potassium 25 MG Tablet PO (09:50)
[2023-06-09] MEDS: Acetaminophen 325 MG Tablet PO (09:52)
--- NOTE | 2023-06-09 10:25 | PHA.DC.MC.R ---
Pharmacy [facility] has performed discharge medication reconciliation and counseling for this patient. The patient was counseled on the following discharge medications and changes in medications for homegoing were reviewed. 1. CIPRO 2. OXYCODONE The Reason for Use, instructions for use, and potential side effects were reviewed for all new medications. The patient's questions regarding all of their medications were answered. The patient was able to verbally demonstrate an understanding of their discharge medications. The patient's discharge medication list was reviewed for discrepancies and discrepancies were resolved. Patient was counselled by Juan Diego Sparrow PharmD Candidate Medications at Discharge Home Medications Losartan Potassium 25 mg PO DAILY 09/03/16 aspirin 81 mg tablet,delayed release (Adult Low Dose Aspirin) 81 mg PO DAILY 10/09/18 clobetasol 0.05 % topical cream 1 applic topical .PRN 10/09/18 sildenafil 100 mg tablet (Viagra) 100 mg PO DAILY PRN ed 10/09/18 metronidazole 1 % topical gel 1 applic topical DAILY 11/07/18 apremilast 30 mg tablet (Otezla) 30 mg PO DAILY 05/30/23 doxycycline hyclate 20 mg tablet 20 mg PO DAILY 05/30/23 famotidine 20 mg tablet (Acid Controller) 20 mg PO DAILY 05/30/23 ibuprofen 200 mg tablet (Advil) 200 mg PO DAILY 05/30/23 eqzfmbon-oc-yhrqa 300 mcg-K 60 mcg-lycop 600 mcg-lutein 300 mcg tablet (Centrum Silver Men) 1 tab PO DAILY 05/30/23 ciprofloxacin HCl 500 mg tablet (Cipro) 500 mg PO BID #20 tabs 06/08/23 docusate sodium 100 mg capsule (Colace) 100 mg PO BID #20 caps 06/08/23 oxycodone 5 mg tablet 5 mg PO Q6H PRN pain 7 days #14 tabs 06/08/23
[2023-06-09] MEDS: 0.9% Saline Lock 10 ML Syringe IV (13:01)
[2023-06-09 13:39] VITALS: BP 149/69; PULSE 74; RESP 18; TEMP 36.8; O2SAT 98
== END 2023-06-09 13:39 | disposition home or self-care (01) ==
LOC: SDC 13:24 → MS3 13:24
PROVIDERS: Anesthesiology; Admitting Provider Urology; PCP Family Medicine; Referring Provider Urology; Visit Provider Urology
PROC: 0VT04ZZ Resection of Prostate, Percutaneous Endoscopic Approach (ICD-10-PCS; CPT 55866; principal; 2023-06-08 07:10)
DX: C61 Malignant neoplasm of prostate (principal); Z79.82 Long term (current) use of aspirin; Z87.891 Personal history of nicotine dependence; Z79.899 Other long term (current) drug therapy; I10 Essential (primary) hypertension; K21.9 Gastro-esophageal reflux disease without esophagitis
CPT/HCPCS: 55866; 00865; 36415; 85027; 86850; 86900; 86901; 88300; 88305; 88307; 88309; 88341; 88342; 93005; 94668; 96361; 96365; 96366; 96375; 96376; 99221; J7120; A4216; G0378; J0744; J2405

== ENCOUNTER → 2023-07-27 | Outpatient (CLI) | payer MEDICARE, OTHER, SELFPAY ==
[2023-07-27 08:59] LABS: PSA,Total- Diagnostic < 0.01 ng/mL (0.0-4.0)
== END | disposition home or self-care (01) ==
LOC: LAB 08:13
PROVIDERS: PCP Family Medicine; Visit Provider Urology
DX: C61 Malignant neoplasm of prostate (principal)
CPT/HCPCS: 36415; 84153

== ENCOUNTER → 2023-10-26 | Outpatient (CLI) | payer MEDICARE, OTHER, SELFPAY ==
[2023-10-26 09:08] LABS: PSA,Total- Diagnostic < 0.01 ng/mL (0.0-4.0)
== END | disposition home or self-care (01) ==
LOC: LAB 07:02
PROVIDERS: PCP Family Medicine; Referring Provider Urology; Visit Provider Urology
DX: C61 Malignant neoplasm of prostate (principal); R97.20 Elevated prostate specific antigen [PSA]; R30.0 Dysuria
CPT/HCPCS: 36415; 84153; 87086

== ENCOUNTER → 2024-03-01 | Outpatient (CLI) | payer MEDICARE, OTHER, SELFPAY ==
--- NOTE | 2024-03-01 07:40 | CDU_ITS ---
Reason For Study: Amaurosis Fugax Rt. Velocities/BP Lt. Velocities/BP Prox CCA 80.6/7.8 cm/sec. Prox CCA 86.1/11.3 cm/sec. Mid CCA 59.8/8.8 cm/sec. Mid CCA 76.2/8 cm/sec. Dist CCA 46.6/9.7 cm/sec. Dist CCA 54.2/10.2 cm/sec. Prox ICA 56.4/15.7 cm/sec. Prox ICA 39.5/7.2 cm/sec. Mid ICA 59.7/16.8 cm/sec. Mid ICA 53.5/10.7 cm/sec. Dist ICA 44.8/10.8 cm/sec. Dist ICA 67.4/19.5 cm/sec. Rt. ICA/CCA = 1.00. Lt. ICA/CCA = 0.88. Prox ECA 89.4/11.3 cm/sec. Prox ECA 85/10.2 cm/sec. Rt. Vert. 44.3/11.3 cm/sec. Lt. Vert. 45.6/8.1 cm/sec. Right Extracranial There is intimal thickening but no significant atherosclerotic plaque noted in the right common carotid artery. There is heterogeneous, smooth atherosclerotic plaque noted in the right internal carotid artery. There is intimal thickening but no significant atherosclerotic plaque noted in the right external carotid artery. Antegrade flow is noted in the right vertebral artery. Left Extracranial There is intimal thickening but no significant atherosclerotic plaque noted in the left common carotid artery. There is homogeneous, smooth atherosclerotic plaque noted in the left internal carotid artery. There is intimal thickening but no significant atherosclerotic plaque noted in the left external carotid artery. Antegrade flow is noted in the left vertebral artery. Procedure Carotid Duplex [id number]. This is a Carotid Duplex examination using B-mode, color flow and specral Doppler. Exam performed in department. 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 Mild (<50%) stenosis left extracranial internal carotid. Flow within the vertebral arteries is antegrade bilaterally. Ordering Physician: Jayme Johnson Referring Physician: Jayme Reyes Performed By: Ines Espinal RVT
== END | disposition home or self-care (01) ==
LOC: CVS 07:38
PROVIDERS: PCP Family Medicine; Referring Provider Ophthalmology; Visit Provider Ophthalmology
DX: G45.3 Amaurosis fugax (principal)
CPT/HCPCS: 93880

== ENCOUNTER → 2024-05-01 | Outpatient (CLI) | payer MEDICARE, OTHER, SELFPAY ==
--- OUTSIDE RECORDS SUMMARY | 2024-05-01 06:51 | XMS RPT_ITS | CCD ---
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 Name Role Phone Juan A Scanlon MD Primary Care Provider [phone] JUAN A SCANLON Referring Unavailable JUAN A SCANLON Primary Care Unavailable JUAN A SCANLON Primary Care Unavailable JUAN A SCANLON Referring Unavailable JUAN A SCANLON Attending Unavailable JUAN A SCANLON Primary Care Unavailable Juan A Scanlon MD Primary Care Provider Allergies Allergy Classification Reported Allergen(s) Allergy Type Date of Onset Reaction(s) Facility (20 sources) Lisinopril; Translations: [LISINOPRIL] Drug Allergy 01-21-2010 [facility] Medications Current Medications Medication Drug Class(es) Dates Sig (Normalized) Sig (Original) aspirin 81 mg delayed release oral tablet (20 sources) Platelet Aggregation Inhibitor, Nonsteroidal Anti-inflammatory Drug Start: 09-28-2016 take 1 tablet by mouth once daily aspirin, enteric coated (ADULT LOW DOSE ASPIRIN) 81 mg EC tablet Take 1 tablet by mouth once daily. 0 09/28/2016 Active Comment on above: Take 1 tablet by [facility] once daily. clobetasol propionate 0.5 mg/ml topical cream (20 sources) Corticosteroid Start: 01-21-2010 CLOBETASOL 0.05 % TOPICAL CREAM as directed for psoriases 0 01/21/2010 Active Comment on above: as directed for psor iases famotidine 20 mg oral tablet (20 sources) Histamine-2 Receptor Antagonist Start: 07-15-2023 take 1 tablet by mouth once daily famotidine (PEPCID) 20 mg tablet Take 1 tablet by mouth once daily. 90 tablet 1 07/15/2023 Active take 1 tablet by mouth once valentin y famotidine (PEPCID) 20 mg tablet Take 20 mg by mouth once daily. 0 Active Comment on above: Take 20 mg by mouth once daily. Take 1 tablet by alejo th once daily. ibuprofen 200 mg oral tablet (20 sources) Nonsteroidal Anti-inflammatory Drug Start: 06-20-2007 IBUPROFEN 200 MG TAB Take 1tablet daily as needed. 0 06/20/2007 Active Comment on above: Take 1tablet daily a s needed. losartan potassium 25 mg oral tablet (20 sources) Angiotensin 2 Receptor Rachele Start: 07-15-2023 take 1 tablet by mouth once daily losartan (COZAAR) 25 mg tablet Take 1 tablet by mouth once daily. 90 tablet 1 07/15/2023 Active Start: 04-16-2019 take 1 tablet by alejo th once daily losartan (COZAAR) 25 mg tablet Take 1 tablet by mouth once daily. 90 tablet 3 04/16/2019 Active Comment on above: Take 1 tablet by alejo th once daily. metroNIDAZOLE 0.01 mg/mg topical gel (20 sources) Nitroimidazole Antimicrobial Start: 03-22-2007 Metronidazole (METROGEL) 1 % TOPICAL Gel as directed 0 03/22/2007 Active Comment on above: as directed multivit-min/FA/lycopen/ lutein (CENTRUM SILVER MEN ORAL) (20 sources) multivit-min/FA/ lycopen /lutein (CENTRUM SILVER MEN ORAL) Take by mouth as directed. Active multivit-min/FA/ lycopen/lutein (CENTRUM SILVER MEN ORAL) Take by mouth as directed. 0 Active Comment on above: Take by mouth as dir ected. tadalafil 20 mg oral tablet (8 sources) Phosphodiesterase 5 Inhibitor Start: take 1 tablet by mouth once daily as needed Tadalafil (CIALIS) 20 mg tablet Take 1 tablet by mouth once daily as needed. 10 tablet 5 07/15/2023 Active Comment on above: Take 1 tablet by alejo th once daily as needed. Completed/Discontinued Medications Medication Drug Class(es) Dates Sig (Normalized) Sig (Original) apremilast 30 mg oral tablet (6 sources) Start: 03-10-2023 apremilast (OTEZLA) 30 mg tablet 1 tablet once daily. Per Davis, [facility] 0 03/10/2023 Active Start: 09-15-2022 End: 03-10-2023 apremilast (OTEZLA) 30 mg ta blet Comment on above: 1 tablet once daily. Per Davis, [facility] doxycycline monohydrate 100 mg oral capsule (15 sources) Tetracycline-class Drug Start: 11-10-2018 End: 03-10-2023 take 1 capsule by mouth once doxycycline monohydrate (MONODOX) 100 mg capsule Take 1 capsule by mouth once daily. Per Derm, [facility] 0 03/10/2023 Active Comment on above: Take 100 mg by mouth once daily. Take 1 capsule by mo uth once daily. Per Derm, [facility] Problems Active Problems Problem Classification Problem Date Documented Date Episodic/Chronic Cancer of prostate (11 sources) Malignant tumor of prostate; Translations: [Malignant neoplasm of prostate] Onset: 03-06-2021 06-12-2023 Chronic Disorders of lipid metabolism (20 sources) Hyperlipidemia; Translations: [Hyperlipidemia, unspecified] Onset: 09-23-2015 09-23-2015 Chronic Esophageal disorders (20 sources) Gastroesophageal reflux disease; Translations: [Gastro-esophageal reflux disease without esophagitis] Onset: 09-23-2015 09-23-2015 Chronic Essential hypertension (20 sources) Benign essential hypertension; Translations: [Essential (primary) hypertension] Onset: 01-21-2010 01-21-2010 Chronic Fluid and electrolyte disorders (2 sources) Hyperkalemia; Translations: [Hyperkalemia] Onset: 03-13-2024 03-13-2024 Episodic Hyperplasia of prostate (20 sources) Benign prostatic hyperplasia; Translations: [Benign prostatic hyperplasia without lower urinary tract symptoms] Onset: 12-11-2014 12-11-2014 Chronic Neoplasms of unspecified nature or uncertain behavior (1 source) 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; Translations: [Neoplasm of uncertain behavior of skin] 03-13-2024 Episodic Nutritional deficiencies (20 sources) Vitamin D deficiency; Translations: [Vitamin D deficiency, unspecified] Onset: 08-19-2014 08-19-2014 Chronic Osteoarthritis (20 sources) Arthritis of right knee; Translations: [Unilateral primary osteoarthritis, right knee] Onset: 03-09-2022 Chronic Other inflammatory condition of skin (20 sources) Psoriasis; Translations: [Psoriasis, unspecified] Onset: 09-28-2016 03-06-2021 Chronic Other inflammatory condition of skin (20 sources) Rosacea; Translations: [Rosacea, unspecified] Onset: 03-09-2022 Chronic Other skin disorders (2 sources) Mass of shoulder region; Translations: [Localized swelling, mass and lump, unspecified upper limb] 03-10-2023 Episodic Past or Other Problems Problem Classification Problem Date Documented Date Episodic/Chronic Abdominal hernia (19 sources) Umbilical hernia; Translations: [Umbilical hernia without obstruction or gangrene] Onset: 03-22-2007 Resolved: 08-19-2014 08-19-2014 Episodic Administrative/social admission (20 sources) Advance directive discussed with patient; Translations: [Other specified counseling] Onset: 03-09-2022 Episodic Chronic ulcer of skin (7 sources) Finger ulcer; Translations: [Non-pressure chronic ulcer of skin of other sites limited to breakdown of skin] Onset: 10-02-2018 Resolved: 02-25-2020 02-25-2020 Chronic Diabetes mellitus without complication (18 sources) Hyperglycemia; Translations: [Hyperglycemia, unspecified] Onset: 03-10-2023 03-10-2023 Episodic Intracranial injury (1 source) Hematoma of subdural space of neuraxis; Translations: [Traumatic subdural hemorrhage with loss of consciousness of unspecified duration, initial encounter] Onset: 09-23-2015 03-06-2021 Episodic Other circulatory disease (20 sources) History of subdural hematoma; Translations: [Personal history of other diseases of the circulatory system] Onset: 09-23-2015 03-09-2022 Episodic Other connective tissue disease (20 sources) Diastasis recti; Translations: [Separation of muscle (nontraumatic), other site] Onset: 11-16-2016 11-16-2016 Episodic Other male genital disorders (7 sources) Disorder of male genital organ; Translations: [Other hydrocele] Onset: 06-20-2007 Resolved: 11-16-2016 11-16-2016 Episodic Other screening for suspected conditions (not mental disorders or infectious disease) (20 sources) Patient encounter status; Translations: [Encounter for screening for malignant neoplasm of colon] Onset: 10-17-2014 03-06-2021 Episodic Residual codes; unclassified (20 sources) Active advance directive; Translations: [Other specified health status] Onset: 03-06-2021 03-06-2021 Episodic Screening and history of mental health and substance abuse codes (20 sources) Ex-smoker; Translations: [Personal history of nicotine dependence] Onset: 03-09-2022 Episodic Spondylosis; intervertebral disc disorders; other back problems (7 sources) Low back pain co-occurrent with neuralgia of left sciatic nerve; Translations: [Lumbago with sciatica, left side] Onset: 09-23-2015 Resolved: 09-28-2016 09-28-2016 Episodic Varicose veins of lower extremity (20 sources) Varicose veins of lower extremity; Translations: [Asymptomatic varicose veins of left lower extremity] Onset: 11-16-2016 11-16-2016 Episodic Results Test Name Value Interpretation Reference Range Facility CNOVon 03-13-2024 CNOV Office Visit (FAMPWS ) KRANTHIGIRMA Lamberto ([id number]) 1945 M Date Time Provider Department 03/13/24 8:00 AM [facility] During your visit today, we recorded the following information about you: Pulse Respiration Blood pressure Weight 80/minute 16/minute 144/78 96.2 kg Height 1.765 m Juan A Scanlon MD 03/13/2024 2:49 PM Signed Girma Lamberto Crisostomo is a 78 year old male here for a Medicare wellness visit. Medicare Health Risk Assessment General Health Exercise: Minutes/Day Exercise: Days/Week Alcohol: Daily Use Alcohol: Drinks/Day Alcohol: 6 or more drinks Feel off balance No Concerns: Teeth/Dentures No Concerns: Sexual function Troubled by feelings None of the above Frequency: Eating healthy diet More than half the days ADLs requiring help Safety precautions in home/vehicle Yes Smoke, vape, chews tobacco No Difficulty hearing No Difficulty seeing No Current Providers Medical/Family history review Reviewed and updated problem list, medical/surgical/family/socia l history, medications, and allergies. Opioid use review Opioid Medications (last 90 days) No data to display Anxiety/Depression screening PHQ-2 Score: 0 (Lower risk for depression) Recommendation: no further intervention at this time Cognitive screening Score:5 Cognitive screening reviewed and No further action needed (score 3-5). Functional Observation Was the patient's Timed Up AND Go test unsteady or ? 12 seconds? No Advance Care Planning Surrogate decision maker documented and/or advance directives scanned in chart Measurements BP 140/82 (BP Site: Left Arm, BP Position: Sitting, BP Cuff Size: Large Adult) Pulse 80 Resp 16 Ht 176.5 cm (5' 9.5 ) Wt 96.2 kg (212 lb) BMI 30.86 kg/m? Vision Screening: Follows with optometry/ophthalmology Assessment/Plan Medicare annual wellness visit, subsequent (Z00.00) - Counseled on healthy diet and regular exercise - Fall avoidance information provided - Personalized prevention plan provided See Below Chief Complaint Patient presents with: Medicare Wellness Exam HPI Girma Crisostomo is a 78 year old male who presents here today for Chronic Medical Conditions. and Medicare Annual Visit. Patient with hx of HTN, hyperlipidemia, GERD, Vit D def, varicose veins, BPH, elevated PSA seeing Urology, psoriasis seeing Derm, Hx of subdural hematoma as well as those reviewed and addressed below and in ROS. Patient sees Dr Swan - last visit 10/2023 Past medical history, appointments, medications, allergies reviewed. Previous Medical History PAST MEDICAL HISTORY 03/09/2022: Advance directive discussed with patient Comment: Discussed 02/202203/06/2021: Advance directive on file 03/09/2022: Arthritis of right knee Comment: [facility] 11[facility]2016: Asymptomatic varicose veins of left lower extremity 12/11/2014: BPH (benign prostatic hyperplasia) 03/10/2023: Elevated blood sugar 03/06/2021: Elevated PSA Comment: Seeing Urology 01/21/2010: Essential hypertension, benign 03/09/2022: Ex-smoker 09/23/2015: Gastroesophageal reflux disease 09/23/2015: History of subdural hematoma Comment: old, R supratentorial. Noted on Brain MRI in 201409/23/2015: Hyperlipidemia, mixed 03/06/2021: Medicare annual wellness visit, subsequent Comment: Medical B eligibilty date 11/08/13 Date of last exam 03/09/2022 03/06/2021: Prostate cancer (HCC) Comment: Seeing U[facility], Dr. Swan and [facility], S/P prostatectomy 06/08/2023 No date: Psoriasis 11/16/2016: Rectus diastasis 03/09/2022: Rosacea 08/19/2014: Vitamin D deficiency Previous Surgical History PAST SURGICAL HISTORY 10/17/2014: COLONOSCOPY FLX DX W/COLLJ SPEC WHEN PFRMD Comment: Colonoscopy 10/17/2014: ESOPHAGOGASTRODUODENOSCOPY TRANSORAL DIAGNOSTIC Comment: EGD 06/05/2007: EXCISION HYDROCELE UNILATERAL Comment: right 06/05/2007: LAPS SURG RPR RECURRENT INGUINAL HERNIA Comment: right No date: PAST SURGICAL HISTORY OF Comment: repair left ankle laceration No date: PAST SURGICAL HISTORY OF Comment: achilles tendon surgery to repair tear No date: RPR 1ST INGUN HRNA AGE 7 YRS/> REDUCIBLE Comment: Hernia repair, inguinal,left No date: RPR 1ST INGUN HRNA AGE 7 YRS/> REDUCIBLE Comment: Hernia repair, inguinal,right 06/05/2007: RPR UMBILICAL HRNA 5 YRS/> REDUCIBLE 06/08/2023: TRANSURETHRAL ELEC-SURG PROSTATECTOM Comment: Dr. Swan Family History FAMILY HISTORY Problem Relation Age of Onset other (dementia) Father Hypertension Mother other (dementia) Mother other (basal cell cancer) Mother other (obesity) Brother Patient Allergies ALLERGIES Allergen Reactions Lisinopril Cough Current Medications Current Outpatient Medications on File Prior to Visit Medication Sig losartan (COZAAR) 25 mg tablet Take 1 tablet by mouth once daily. famotidine (PEPCID) 20 mg tablet Steffen (more content not included)... Normal [facility] 03-13-2024 [facility] GIRMA CRISOSTOMO ([id number]) 1945 M Date Time Provider Department 03/13/24 [facility] During your visit today, we recorded the following information about you: Juan A Scanlon MD 03/13/2024 9:52 PM Signed Let patient know his repeat liver functions and potassium were normal. Rios Austin MA 03/14/2024 11:57 AM Signed Patient notified and voiced understanding. Rios Austin MA Allergies As of Date: 03/13/2024 Noted Allergy Reaction LISINOPRIL 01/21/2010 3 - Cough Date Reviewed: 03/13/2024 Reviewed by: Juan A Scanlon MD - Fully Assessed Reason for Visit: Results [95] Prescriptions as of 03/14/2024 - losartan (COZAAR) 25 mg tablet Take 1 tablet by mouth once daily. - famotidine (PEPCID) 20 mg tablet Take 1 tablet by mouth once daily. - Tadalafil (CIALIS) 20 mg tablet Take 1 tablet by mouth once daily as needed. - multivit-min/FA/lycopen/lutei n (CENTRUM SILVER MEN ORAL) Take by mouth as directed. - aspirin, enteric coated (ADULT LOW DOSE ASPIRIN) 81 mg EC tablet Take 1 tablet by mouth once daily. - CLOBETASOL 0.05 % TOPICAL CREAM as directed for psoriases - IBUPROFEN 200 MG TAB Take 1tablet daily as needed. - Metronidazole (METROGEL) 1 % TOPICAL Gel as directed Problem List As Of Date 03/13/2024 Noted Resolved UMBILICAL HERNIA W/O GANGRENE/OBSTRUCTION [K42.*03/22/2007 08/19/2014 INGUINAL HERNIA, UNILAT, RECURRENT W/O GANGRENE*03/22/2007 08/19/2014 HYDROCELE OTHER SPECIFIC [N43.2] 06/20/2007 11/16/2016 Essential hypertension, benign [I10] 01/21/2010 Vitamin D deficiency [E55.9] 08/19/2014 Special screening for malignant neoplasms, colo*10/17/2014 BPH (benign prostatic hyperplasia) [N40.0] 12/11/2014 Left-sided low back pain with left-sided sciati*09/23/2015 09/28/2016 Hyperlipidemia, mixed [E78.2] 09/23/2015 Gastroesophageal reflux disease [K21.9] 09/23/2015 History of subdural hematoma [Z86.79] 09/23/2015 Psoriasis [L40.9] 09/28/2016 Asymptomatic varicose veins of left lower extre*11/16/2016 Rectus diastasis [M62.08] 11/16/2016 Skin ulcer of finger, limited to breakdown of s*10/02/2018 02/25/2020 Medicare annual wellness visit, subsequent [Z00*03/06/2021 Advance directive on file [Z78.9] 03/06/2021 Prostate cancer (HCC) [C61] 03/06/2021 Ex-smoker [Z87.891] 03/09/2022 Advance directive discussed with patient [Z71.8*03/09/2022 Arthritis of right knee [M17.11] 03/09/2022 Rosacea [L71.9] 03/09/2022 Elevated blood sugar [R73.9] 03/10/2023 Incisional hernia, without obstruction or gangr*03/13/2024 Encounter Status:Closed by RIOS AUSTIN on 03/14/24 Normal [facility] Comprehensive metabolic 2000 panelon 03-13-2024 Albumin [Mass/Vol] 4.3 g/dL 3.9 - 4.9 g/dL [facility] ALP [Catalytic activity/Vol] 85 U/L 38 - 113 U/L [facility] ALT [Catalytic activity/Vol] 44 U/L 10 - 54 U/L [facility] Anion gap [Moles/Vol] 9 mmol/L 8 - 15 mmol/L [facility] AST [Catalytic activity/Vol] 37 U/L 14 - 40 U/L [facility] Bilirubin [Mass/Vol] 0.7 mg/dL 0.2 - 1.3 mg/dL [facility] Calcium [Mass/Vol] 9.8 mg/dL 8.5 - 10.2 mg/dL [facility] Chloride [Moles/Vol] 105 mmol/L 98 - 107 mmol/L [facility] CO2 [Moles/Vol] 26 mmol/L 22 - 30 mmol/L [facility] Creatinine [Mass/Vol] 0.93 mg/dL 0.73 - 1.22 mg/dL [facility] GFR/1.73 sq M.predicted among non-blacks MDRD (S/P/Bld) [Vol rate/Area] 85 mL/min/{1.73_m2} - PINF [facility] Comment on above: Estimated Glomerular Filtration Rate (eGFR) is calculated using the 2020 CKD-EPI creatinine equation. This equation utilizes serum creatinine, sex, and age as parameters. The creatinine assay has traceable calibration to isotope dilution-mass spectrometry. Refer to KDIGO guidelines for clinical interpretation. In patients with unstable renal function, e.g. those with acute kidney injury, the eGFR may not accurately reflect actual GFR. Glucose [Mass/Vol] 113 mg/dL High 74 - 99 mg/dL [facility] Comment on above: The [place] Diabete s Association (ADA) provides guidance for cutoff values for fasting glucose and random glucose. The ADA defines fasting as no caloric intake for at least 8 hours. Fasting plasma glucose results between 100 to 125 mg/dL indicate increased risk for diabetes (prediabetes). Fasting plasma glucose results greater than or equal to 126 mg/dL meet the criteria for diagnosis of diabetes. In the absence of unequivocal hyperglycemia, results should be confirmed by repeat testing. In a patient with classic symptoms of hyperglycemia or hyperglycemic crisis, random plasma glucose results greater than or equal to 200 mg/dL meet the criteria for diagnosis of diabetes. Reference: Standards of Medical Care in Diabetes 2016, [place] Diabetes Association. Diabetes Care. 2016.39(Suppl 1). Interpretation and review of laboratory results Abnormal [facility] Potassium [Moles/Vol] 4.5 mmol/L 3.7 - 5.1 mmol/L [facility] Protein [Mass/Vol] 7.4 g/dL 6.3 - 8.0 g/dL [facility] Sodium [Moles/Vol] 140 mmol/L 136 - 144 mmol/L [facility] Urea nitrogen [Mass/Vol] 20 mg/dL 9 - 24 mg/dL [facility] Albumin [Mass/Vol] 4.3 g/dL Normal 3.9-4.9 [facility] Comment on above: Order Comment: Speci men Type: BLOOD SPECIMENOrdering Facility: [facility] Address: [address] [place] [address] Performed By: #### 2 4323-8 ####[facility] LABCLIA [id number] [place] [address] [place] ALP [Catalytic activity/Vol] 85 U/L Normal 38-113 [facility] Comment on above: Order Comment: Speci men Type: BLOOD SPECIMENOrdering Facility: [facility] Address: [address] [place] [address] Performed By: #### 2 4323-8 ####[facility] LABCLIA [id number] [place] [id number] [place] ALT [Catalytic activity/Vol] 44 U/L Normal 10-54 [facility] Comment on above: Order Comment: Speci men Type: BLOOD SPECIMENOrdering Facility: [facility] Address: [address] [place] [address] Performed By: #### 2 4323-8 ####[facility] LABCLIA [id number] [place] [address] [place] Anion gap [Moles/Vol] 9 mmol/L Normal 8-15 [facility] Comment on above: Order Comment: Speci men Type: BLOOD SPECIMENOrdering Facility: [facility] Address: [address] [place] [address] Performed By: #### 2 4323-8 ####[facility] LABCLIA [id number] [place] [address] [place] AST [Catalytic activity/Vol] 37 U/L Normal 14-40 [facility] Comment on above: Order Comment: Speci men Type: BLOOD SPECIMENOrdering Facility: [facility] Address: [address] [place] [address] Performed By: #### 2 4323-8 ####[facility] LABCLIA [id number] [place] [address] [place] Bilirubin [Mass/Vol] 0.7 mg/dL Normal 0.2-1.3 [facility] Comment on above: Order Comment: Speci men Type: BLOOD SPECIMENOrdering Facility: [facility] Address: [address] [place] [address] Performed By: #### 2 4323-8 ####[facility] LABCLIA [id number] [place] [address] [place] Calcium [Mass/Vol] 9.8 mg/dL Normal 8.5-10.2 [facility] Comment on above: Order Comment: Speci men Type: BLOOD SPECIMENOrdering Facility: [facility] Address: [address] [place] [address] Performed By: #### 2 4323-8 ####[facility] LABCLIA [id number] [place] [address] [place] Chloride [Moles/Vol] 105 mmol/L Normal 98-107 [facility] Comment on above: Order Comment: Speci men Type: BLOOD SPECIMENOrdering Facility: [facility] Address: [address] [place] [address] Performed By: #### 2 4323-8 ####[facility] LABCLIA [id number] [place] [address] [place] CO2 [Moles/Vol] 26 mmol/L Normal 22-30 [facility] Comment on above: Order Comment: Speci men Type: BLOOD SPECIMENOrdering Facility: [facility] Address: [address] [place] [address] Performed By: #### 2 4323-8 ####[facility] LABCLIA [id number] [place] [address] [place] Creatinine [Mass/Vol] 0.93 mg/dL Normal 0.73-1.22 [facility] Comment on above: Order Comment: Speci men Type: BLOOD SPECIMENOrdering Facility: [facility] Address: [address] [place] [address] Performed By: #### 2 4323-8 ####[facility] LABCLIA [id number] [place] [address] [place] Creatinine and Glomerular filtration rate.predicted panel (S/P/Bld) 85 mL/min/1.73m??? Normal >=60 [facility] Comment on above: Order Comment: Speci men Type: BLOOD SPECIMENOrdering Facility: [facility] Address: [address] [place] [address] Result Comment: Concetta mated Glomerular Filtration Rate (eGFR) is calculated using the 2020 CKD-EPI creatinine equation. This equation utilizes serum creatinine, sex, and age as parameters. The creatinine assay has traceable calibration to isotope dilution-mass spectrometry. Refer to KDIGO guidelines for clinical interpretation. In patients with unstable renal function, e.g. those with acute kidney injury, the eGFR may not accurately reflect actual GFR. Performed By: #### 2 4323-8 ####[facility] LABCLIA [id number] [place] [address] [place] Glucose [Mass/Vol] 113 mg/dL High 74-99 [facility] Comment on above: Order Comment: Afshan calixto Type: BLOOD SPECIMENOrdering Facility: [facility] Address: [address] [place] [address] Result Comment: The [place] Diabetes Association (ADA) provides guidance for cutoff values for fasting glucose and random glucose. The ADA defines fasting as no caloric intake for at least 8 hours. Fasting plasma glucose results between 100 to 125 mg/dL indicate increased risk for diabetes (prediabetes). Fasting plasma glucose results greater than or equal to 126 mg/dL meet the criteria for diagnosis of diabetes. In the absence of unequivocal hyperglycemia, results should be confirmed by repeat testing. In a patient with classic symptoms of hyperglycemia or hyperglycemic crisis, random plasma glucose results greater than or equal to 200 mg/dL meet the criteria for diagnosis of diabetes. Reference: Standards of Medical Care in Diabetes 2016, [place] [employer]. Diabetes Care. 2016.39(Suppl 1). Performed By: #### 2 4323-8 ####[facility] LABCLIA [id number] [place] [id number] [place] Potassium [Moles/Vol] 4.5 mmol/L Normal 3.7-5.1 [facility] Comment on above: Order Comment: Afshan calixto Type: BLOOD SPECIMENOrdering Facility: [facility] Address: [address] [place] [address] Performed By: #### 2 4323-8 ####[facility] LABCLIA [id number] [place] [id number] [place] Protein [Mass/Vol] 7.4 g/dL Normal 6.3-8.0 [facility] Comment on above: Order Comment: Speci men Type: BLOOD SPECIMENOrdering Facility: [facility] Address: [address] [place] [address] Performed By: #### 2 4323-8 ####[facility] LABCLIA [id number] [place] [address] [place] Sodium [Moles/Vol] 140 mmol/L Normal 136-144 [facility] Comment on above: Order Comment: Speci men Type: BLOOD SPECIMENOrdering Facility: [facility] Address: [address] [place] [address] Performed By: #### 2 4323-8 ####[facility] LABCLIA [id number] [place] [address] [place] Urea nitrogen [Mass/Vol] 20 mg/dL Normal 9-24 [facility] Comment on above: Order Comment: Speci men Type: BLOOD SPECIMENOrdering Facility: [facility] Address: [address] [place] [address] Performed By: #### 2 4323-8 ####[facility] LABCLIA [id number] [place] [address] [place] 25(OH)D3 [facility]con 2023 25-hydroxyvitamin D3 [Mass/Vol] 34.2 ng/mL Normal 31.0-80.0 [facility] Comment on above: Order Comment: Speci men Type: BLOOD SPECIMENOrdering Facility: [facility] Address: [address] [place] [address] Performed By: #### 1 989-3 ####[facility] LABCLIA [id number] [place] [phone] [place] Comprehensive metabolic 2000 panelon 03-02-2024 Albumin [Mass/Vol] 4.3 g/dL Normal 3.9-4.9 [facility] Comment on above: Order Comment: Speci men Type: BLOOD SPECIMENOrdering Facility: [facility] Address: [address] [place] [address] Performed By: #### 2 4323-8, LIPNF ####[facility] LABCLIA [id number] [place] [address] [place] ALP [Catalytic activity/Vol] 80 U/L Normal 38-113 [facility] Comment on above: Order Comment: Speci men Type: BLOOD SPECIMENOrdering Facility: [facility] Address: [address] [place] [address] Performed By: #### 2 4323-8, LIPNF ####[facility] LABCLIA [id number] [place] [address] [place] ALT [Catalytic activity/Vol] 53 U/L Normal 10-54 [facility] Comment on above: Order Comment: Speci men Type: BLOOD SPECIMENOrdering Facility: [facility] Address: [address] [place] [address] Performed By: #### 2 4323-8, LIPNF ####[facility] LABCLIA [id number] [place] [address] [place] Anion gap [Moles/Vol] 10 mmol/L Normal 8-15 [facility] Comment on above: Order Comment: Speci men Type: BLOOD SPECIMENOrdering Facility: [facility] Address: [address] [place] [address] Performed By: #### 2 4323-8, LIPNF ####[facility] LABCLIA [id number] [place] [address] [place] AST [Catalytic activity/Vol] 42 U/L High 14-40 [facility] Comment on above: Order Comment: Speci men Type: BLOOD SPECIMENOrdering Facility: [facility] Address: [address] [place] [address] Performed By: #### 2 4323-8, LIPNF ####[facility] LABCLIA [id number] [place] [address] [place] Bilirubin [Mass/Vol] 0.4 mg/dL Normal 0.2-1.3 [facility] Comment on above: Order Comment: Speci men Type: BLOOD SPECIMENOrdering Facility: [facility] Address: [address] [place] [address] Performed By: #### 2 4323-8, LIPNF ####[facility] LABCLIA [id number] [place] [address] [place] Calcium [Mass/Vol] 9.6 mg/dL Normal 8.5-10.2 [facility] Comment on above: Order Comment: Speci men Type: BLOOD SPECIMENOrdering Facility: [facility] Address: [address] [place] [address] Performed By: #### 2 4323-8, LIPNF ####[facility] LABCLIA [id number] [place] [address] [place] Chloride [Moles/Vol] 107 mmol/L Normal 98-107 [facility] Comment on above: Order Comment: Speci men Type: BLOOD SPECIMENOrdering Facility: [facility] Address: [address] [place] [address] Performed By: #### 2 4323-8, LIPNF ####[facility] LABCLIA [id number] [place] [address] [place] CO2 [Moles/Vol] 25 mmol/L Normal 22-30 [facility] Comment on above: Order Comment: Speci men Type: BLOOD SPECIMENOrdering Facility: [facility] Address: [address] [place] [address] Performed By: #### 2 4323-8, LIPNF ####[facility] LABCLIA [id number] [place] [address] [place] Creatinine [Mass/Vol] 0.96 mg/dL Normal 0.73-1.22 [facility] Comment on above: Order Comment: Speci men Type: BLOOD SPECIMENOrdering Facility: [facility] Address: [address] [place] [address] Performed By: #### 2 4323-8, LIPNF ####[facility] LABCLIA [id number] [place] [address] [place] Creatinine and Glomerular filtration rate.predicted panel (S/P/Bld) 82 mL/min/1.73m??? Normal >=60 [facility] Comment on above: Order Comment: Afshan calixto Type: BLOOD SPECIMENOrdering Facility: [facility] Address: [address] [place] [address] Result Comment: Concetta mated Glomerular Filtration Rate (eGFR) is calculated using the 2020 CKD-EPI creatinine equation. This equation utilizes serum creatinine, sex, and age as parameters. The creatinine assay has traceable calibration to isotope dilution-mass spectrometry. Refer to KDIGO guidelines for clinical interpretation. In patients with unstable renal function, e.g. those with acute kidney injury, the eGFR may not accurately reflect actual GFR. Performed By: #### 2 4323-8, LIPNF ####[facility] LABCLIA [id number] [place] [address] [place] Glucose [Mass/Vol] 102 mg/dL High 74-99 [facility] Comment on above: Order Comment: Afshan calixto Type: BLOOD SPECIMENOrdering Facility: [facility] Address: [address] [place] [address] Result Comment: The [place] Diabetes Association (ADA) provides guidance for cutoff values for fasting glucose and random glucose. The ADA defines fasting as no caloric intake for at least 8 hours. Fasting plasma glucose results between 100 to 125 mg/dL indicate increased risk for diabetes (prediabetes). Fasting plasma glucose results greater than or equal to 126 mg/dL meet the criteria for diagnosis of diabetes. In the absence of unequivocal hyperglycemia, results should be confirmed by repeat testing. In a patient with classic symptoms of hyperglycemia or hyperglycemic crisis, random plasma glucose results greater than or equal to 200 mg/dL meet the criteria for diagnosis of diabetes. Reference: Standards of Medical Care in Diabetes 2016, [place] Diabetes Association. Diabetes Care. 2016.39(Suppl 1). Performed By: #### 2 4323-8, LIPNF ####[facility] LABCLIA [id number] [place] [address] [place] Potassium [Moles/Vol] 5.3 mmol/L High 3.7-5.1 [facility] Comment on above: Order Comment: Speci men Type: BLOOD SPECIMENOrdering Facility: [facility] Address: [address] [place] [address] Performed By: #### 2 4323-8, LIPNF ####[facility] LABCLIA [id number] [place] [address] [place] Protein [Mass/Vol] 7.2 g/dL Normal 6.3-8.0 [facility] Comment on above: Order Comment: Speci men Type: BLOOD SPECIMENOrdering Facility: [facility] Address: [address] [place] [address] Performed By: #### 2 4323-8, LIPNF ####[facility] LABIA [id number] [place] [address] [place] Sodium [Moles/Vol] 142 mmol/L Normal 136-144 [facility] Comment on above: Order Comment: Speci men Type: BLOOD SPECIMENOrdering Facility: [facility] Address: [address] [place] [address] Performed By: #### 2 4323-8, LIPNF ####[facility] LABCLIA [id number] [place] [address] [place] Urea nitrogen [Mass/Vol] 20 mg/dL Normal 9-24 [facility] Comment on above: Order Comment: Speci men Type: BLOOD SPECIMENOrdering Facility: [facility] Address: [address] [place] [address] Performed By: #### 2 4323-8, LIPNF ####[facility] LABCLIA [id number] [address] [place] HbA1c (Bld)on 03-02-2024 Average glucose Estimated from glycated hemoglobin (Bld) [Mass/Vol] 108 mg/dL Normal [facility] Comment on above: Order Comment: Afshan calixto Type: BLOOD SPECIMENOrdering Facility: [facility] Address: [address] [place] [address] Result Comment: eAG: (Estimated average glucose) is a calculated value from HgbA1c and is outside sales representative of the average blood glucose level in the last 2-3 month period. Performed By: #### 5 5454-3 ####[facility] LABCLIA [id number] [address] [place] HbA1c (Bld) [Mass fraction] 5.4 % Normal 4.3-5.6 [facility] Comment on above: Order Comment: Afshan calixto Type: BLOOD SPECIMENOrdering Facility: [facility] Address: [address] [place] [address] Result Comment: [place] Diabetes Association guidelines indicate that patients with HgbA1c in the range 5.7-6.4% are at increased risk for development of diabetes, and intervention by lifestyle modification may be beneficial. HgbA1c greater or equal to 6.5% is considered diagnostic of diabetes. Performed By: #### 5 5454-3 ####[facility] LABCLIA [id number] [place] [address] [place] LIPID PANEL, NONFASTINGon Cholesterol [Mass/Vol] 184 mg/dL Normal <200 [facility] Comment on above: Order Comment: Afshan calixto Type: BLOOD SPECIMENOrdering Facility: [facility] Address: [address] [place] [address] Result Comment: <200 mg/dL, Desirable 200-239 mg/dL, Borderline high >239 mg/dL, High Performed By: #### 2 4323-8, LIPNF ####[facility] LABCLIA [id number] [place] [address] [place] HDL CHOLESTEROL, NF 45 mg/dL Normal >39 [facility] Comment on above: Order Comment: Yumikoi marily Type: BLOOD SPECIMENOrdering Facility: [facility] Address: [address] [place] [address] Result Comment: 40-5 9 mg/dL, Acceptable >59 mg/dL, High: Negative risk factor for coronary heart disease <40 mg/dL, Low: Positive risk factor for coronary heart disease Performed By: #### 2 4323-8, LIPNF ####[facility] LABCLIA [id number] [address] OF [facility] LDL CHOLESTEROL, NF 115 mg/dL High <100 [facility] Comment on above: Order Comment: Yumikoherbert calixto Type: BLOOD SPECIMENOrdering Facility: [facility] Address: [address] [place] [address] Result Comment: <100 mg/dL, Optimal 100-129 mg/dL, Near optimal/above optimal 130-159 mg/dL, Borderline high 160-189 mg/dL, High >189 mg/dL, Very high Secondary prevention optimal LDL Cholesterol levels are recommended to be < 70 mg/dL Performed By: #### 2 4323-8, LIPNF ####[facility] LABCLIA [id number] [address] OF [facility] LDL/HDL RATIO, NF 2.56 mg/dL High <2.54 [facility] Comment on above: Order Comment: Afshan calixto Type: BLOOD SPECIMENOrdering Facility: [facility] Address: [address] [place] [address] Result Comment: Refe rence: 1. National Cholesterol Education Program ATP III Guideline At-A-Glance Quick Desk Reference: National Heart, Lung, and Blood [place]. National Institutes of Health. 2001: NIH Publication No. 01-3305. 2. An International Atherosclerosis Society position paper: global recommendations for the management of dyslipidemia: executive summary, Atherosclerosis. 2014: 232(2):410-413. Performed By: #### 2 4323-8, LIPNF ####[facility] LABCLIA [id number] [place] [address] [place] NON HDL CHOL, NF 139 mg/dL High <130 [facility] Comment on above: Order Comment: Speci men Type: BLOOD SPECIMENOrdering Facility: [facility] Address: [address] [place] [address] Result Comment: <130 mg/dL, Optimal 130-159 mg/dL, Near optimal/above optimal 160-189 mg/dL, Borderline high 190-219 mg/dL, High >219 mg/dL, Very high Secondary prevention optimal non HDL Cholesterol levels are recommended to be <100 mg/dL Performed By: #### 2 4323-8, LIPNF ####[facility] LABCLIA [id number] [place] [address] [place] T CHOL/HDL RATIO NF 4.09 mg/dL Normal <5.10 [facility] Comment on above: Order Comment: Speci men Type: BLOOD SPECIMENOrdering Facility: [facility] Address: [address] [place] [address] Performed By: #### 2 4323-8, LIPNF ####[facility] LABCLIA [id number] [place] [address] [place] TRIGLYCERIDES, NF 121 mg/dL Normal <150 [facility] Comment on above: Order Comment: Speci men Type: BLOOD SPECIMENOrdering Facility: [facility] Address: [address] [place] [address] Result Comment: <150 mg/dL, Normal 150-199 mg/dL, Borderline high 200-499 mg/dL, High >499 mg/dL, Very high Performed By: #### 2 4323-8, LIPNF ####[facility] LABCLIA [id number] [place] [address] [place] VLDL CHOLESTEROL, NF 24 mg/dL Normal <30 [facility] Comment on above: Order Comment: Speci men Type: BLOOD SPECIMENOrdering Facility: [facility] Address: [address] [place] [address] Performed By: #### 2 4323-8, LIPNF ####[facility] LABCLIA [id number] [place] [address] [place] Urinalysis complete panel (U )on 03-02-2024 Bacteria LM.HPF (Urine sed) [#/Area] Negative Normal Negative [facility] Comment on above: Order Comment: Speci men Type: URINE SPECIMENOrdering Facility: [facility] Address: [address] [place] [address] Performed By: #### 2 4356-8 ####[facility] LABCLIA [id number] [place] [address] [place] Bilirubin Ql (U) Negative Normal Negative [facility] Comment on above: Order Comment: Speci men Type: URINE SPECIMENOrdering Facility: [facility] Address: [address] [place] [address] Performed By: #### 2 4356-8 ####[facility] LABIA [id number] [place] [address] [place] Clarity (Unsp spec) Clear Normal Clear [facility] Comment on above: Order Comment: Speci men Type: URINE SPECIMENOrdering Facility: [facility] Address: [address] [place] [address] Performed By: #### 2 4356-8 ####[facility] LABCLIA [id number] [place] [address] [place] Color (U) Yellow Normal Yellow [facility] Comment on above: Order Comment: Speci men Type: URINE SPECIMENOrdering Facility: [facility] Address: [address] [place] [address] Performed By: #### 2 4356-8 ####[facility] LABCLIA [id number] [place] [address] [place] Epithelial cells LM.HPF (Urine sed) [#/Area] None Seen Normal [facility] Comment on above: Order Comment: Speci men Type: URINE SPECIMENOrdering Facility: [facility] Address: [address] [place] [address] Performed By: #### 2 4356-8 ####[facility] LABCLIA [id number] [place] [address] [place] Glucose Test strip (U) [Mass/Vol] Negative Normal Negative [facility] Comment on above: Order Comment: Speci men Type: URINE SPECIMENOrdering Facility: [facility] Address: [address] [place] [address] Performed By: #### 2 4356-8 ####[facility] LABCLIA [id number] [place] [address] [place] Hemoglobin Ql (U) Negative Normal Negative [facility] Comment on above: Order Comment: Speci men Type: URINE SPECIMENOrdering Facility: [facility] Address: [address] [place] [address] Performed By: #### 2 4356-8 ####[facility] LABCLIA [id number] [place] [address] [place] Hyaline casts (Urine sed) [#/Area] 0 /[LPF] Normal 0 /LPF [facility] Comment on above: Order Comment: Speci men Type: URINE SPECIMENOrdering Facility: [facility] Address: [address] [place] [address] Performed By: #### 2 4356-8 ####[facility] LABCLIA [id number] [place] [address] [place] Ketones Ql (U) Negative Normal Negative [facility] Comment on above: Order Comment: Speci men Type: URINE SPECIMENOrdering Facility: [facility] Address: [address] [place] [address] Performed By: #### 2 4356-8 ####[facility] LABCLIA [id number] [place] [address] [place] Leukocyte esterase Test strip Ql (U) Negative Normal Negative [facility] Comment on above: Order Comment: Speci men Type: URINE SPECIMENOrdering Facility: [facility] Address: [address] [place] [address] Performed By: #### 2 4356-8 ####[facility] LABCLIA [id number] [place] [address] [place] Nitrite Ql (U) Negative Normal Negative [facility] Comment on above: Order Comment: Speci men Type: URINE SPECIMENOrdering Facility: [facility] Address: [address] [place] [address] Performed By: #### 2 4356-8 ####[facility] LABCLIA [id number] [place] [address] [place] pH (U) 5.5 [pH] Normal <8.5 [facility] Comment on above: Order Comment: Speci men Type: URINE SPECIMENOrdering Facility: [facility] Address: [address] [place] [address] Performed By: #### 2 4356-8 ####[facility] LABCLIA [id number] [place] [address] [place] Protein (U) [Mass/Vol] Negative Normal Negative [facility] Comment on above: Order Comment: Speci men Type: URINE SPECIMENOrdering Facility: [facility] Address: [address] [place] [address] Performed By: #### 2 4356-8 ####[facility] LABCLIA [id number] [place] [address] [place] RBC LM.HPF (Urine sed) [#/Area] 0-2 /HPF Normal 0-2 /HPF [facility] Comment on above: Order Comment: Speci men Type: URINE SPECIMENOrdering Facility: [facility] Address: [address] [place] [address] Performed By: #### 2 4356-8 ####[facility] LABIA [id number] [place] [address] [place] Specific gravity (U) [Rel density] 1.020 Normal 1.005-1.030 [facility] Comment on above: Order Comment: Speci men Type: URINE SPECIMENOrdering Facility: [facility] Address: [address] [place] [address] Performed By: #### 2 4356-8 ####[facility] [id number] [place] [address] [place] Urobilinogen Ql (U) 0.2 EU/dL Normal 0.2-1.0 EU/dL [facility] Comment on above: Order Comment: Speci men Type: URINE SPECIMENOrdering Facility: [facility] Address: [address] [place] [address] Performed By: #### 2 4356-8 ####[facility] [id number] [place] [address] [place] WBC LM.HPF (Urine sed) [#/Area] 0-5 /HPF Normal 0-5 /HPF [facility] Comment on above: Order Comment: Speci men Type: URINE SPECIMENOrdering Facility: [facility] Address: [address] [place] [address] Performed By: #### 2 4356-8 ####[facility] [id number] [place] [address] [place] CNPAlexandra 02-29-2024 CNPN Telephone (FAMPWS) GIRMA CRISOSTOMO ([id number]) 1945 Date Time Provider Department 02/29/24 JUAN A SCANLON During your visit today, we recorded the following information about you: Trina Don LPN 02/29/2024 1:35 PM Signed Patient asking if he needs lab work done prior to his Wellness visit on 03/13. If so [facility] Please advise. Juan A Scanlon MD 02/29/2024 6:10 PM Signed Labs ready to be faxed. Rios Austin MA 02/29/2024 6:21 PM Signed Spoke with patient and he wanted done here at our office. Patient notified orders are ready. Rios Austin MA Allergies As of Date: 02/29/2024 Noted Allergy Reaction LISINOPRIL 01/21/2010 3 - Cough Date Reviewed: 03/10/2023 Reviewed by: Juan A Scanlon MD - Fully Assessed Reason for Visit: Orders [681] Primary Visit Diagnosis:Essential hypertension, benign [I10] Other Visit Diagnoses:Hyperlipidemia, mixed [E78.2] Gastroesophageal reflux disease without esophagitis [K21.9] Vitamin D deficiency [E55.9] Elevated blood sugar [R73.9] Order(s):COMPREHENSIVE METABOLIC PANEL [SQCMP] Order #: [id number] FUTURE HEMOGLOBIN A1C [BUIRE1Z] Order #: [id number] FUTURE URINALYSIS, WITH MICROSCOPIC [SQUAWMIC] Order #: [id number] FUTURE LIPID PANEL, NONFASTING [SQLIPNF] Order #: [id number] FUTURE VITAMIN D 25 HYDROXY [SQVITD] Order #: [id number] FUTURE Prescriptions as of 02/29/2024 - losartan (COZAAR) 25 mg tablet Take 1 tablet by mouth once daily. - famotidine (PEPCID) 20 mg tablet Take 1 tablet by mouth once daily. - Tadalafil (CIALIS) 20 mg tablet Take 1 tablet by mouth once daily as needed. - multivit-min/FA/lycopen/lutei n (CENTRUM SILVER MEN ORAL) Take by mouth as directed. - aspirin, enteric coated (ADULT LOW DOSE ASPIRIN) 81 mg EC tablet Take 1 tablet by mouth once daily. - CLOBETASOL 0.05 % TOPICAL CREAM as directed for psoriases - IBUPROFEN 200 MG TAB Take 1tablet daily as needed. 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08] 11/16/2016 Skin ulcer of finger, limited to breakdown of s*10/02/2018 02/25/2020 Medicare annual wellness visit, subsequent [Z00*03/06/2021 Advance directive on file [Z78.9] 03/06/2021 Prostate cancer (HCC) [C61] 03/06/2021 Ex-smoker [Z87.891] 03/09/2022 Advance directive discussed with patient [Z71.8*03/09/2022 Arthritis of right knee [M17.11] 03/09/2022 Rosacea [L71.9] 03/09/2022 Elevated blood sugar [R73.9] 03/10/2023 Encounter Status:Closed by RIOS AUSTIN on 02/29/24 Normal [facility] [facility] XR Shoulder - right 3 Viewso n 03-14-2023 IMPRESSION: Mild deg enerative changes. Nonspecific soft tissue density just superior to the distal clavicle, can consider ultrasound to further evaluate Acute Coordinator: JOSE Transcribe Date/Time: Sep 4 2023 12:40P Dictated by : JEISON TUTTLE MD This examination was interpreted and the report reviewed and electronically signed by: JEISON TUTTLE MD on Mar 14 2023 12:41PM [facility] DIVISION OF RADIOLOGY * * *Final Report* * * DATE OF EXAM: Mar 10 2023 9:32AM WOX [id number] - XR SHLDR >/=3V AP/AME AP/OTHR RT / PROCEDURE REASON: Mass of shoulder region * * * * Physician Interpretation * * * * XR SHLDR >/=3V AP/AME AP/OTHR RT PROVIDED HISTORY: Mass of shoulder region COMPARISON: Photographs from same day TECHNIQUE: 3 views of the right shoulder RESULT: There is mild narrowing at the AC joint. Glenohumeral alignment appears intact. Soft tissue prominence along the superior aspect of the AC joint. No bony abnormality corresponds to the soft tissue finding. No radiopaque foreign bodies are seen DIVISION OF RADIOLOGY [facility]14/[facility]23 * * *Final Report* * * DATE OF EXAM: Mar 10 2023 9:32AM WOX [id number] - XR SHLDR >/=3V AP/AME AP/OTHR RT / PROCEDURE REASON: Mass of shoulder region * * * * Physician Interpretation * * * * XR SHLDR >/=3V AP/AME AP/OTHR RT PROVIDED HISTORY: Mass of shoulder region COMPARISON: Photographs from same day TECHNIQUE: 3 views of the right shoulder RESULT: There is mild narrowing at the AC joint. Glenohumeral alignment appears intact. Soft tissue prominence along the superior aspect of the AC joint. No bony abnormality corresponds to the soft tissue finding. No radiopaque foreign bodies are seen IMPRESSION IMPRESSION: Mild degenerative changes. Nonspecific soft tissue density just superior to the distal clavicle, can consider ultrasound to further evaluate Acute Coordinator: JOSE Transcribe Date/Time: Mar 14 2023 12:40P Dictated by : JEISON TUTLTE MD This examination was interpreted and the report reviewed and electronically signed by: JEISON TUTTLE MD on Mar 14 2023 12:41PM EST [facility] XR Shoulder - right 3 ViewsO rdered By: [facility] Provider on 03-14-2023 [facility] metabolic 2000 panelon 03-10-2023 Albumin [Mass/Vol] 4.4 g/dL 3.9 - 4.9 g/dL [facility] ALP [Catalytic activity/Vol] 60 U/L 38 - 113 U/L [facility] ALT [Catalytic activity/Vol] 35 U/L 10 - 54 U/L [facility] Anion gap [Moles/Vol] 12 mmol/L 9 - 18 mmol/L [facility] AST [Catalytic activity/Vol] 27 U/L 14 - 40 U/L [facility] Bilirubin [Mass/Vol] 0.7 mg/dL 0.2 - 1.3 mg/dL [facility] Calcium [Mass/Vol] 10.1 mg/dL 8.5 - 10.2 mg/dL [facility] Chloride [Moles/Vol] 107 mmol/L High 97 - 105 mmol/L [facility] CO2 [Moles/Vol] 24 mmol/L 22 - 30 mmol/L [facility] Creatinine [Mass/Vol] 0.96 mg/dL 0.73 - 1.22 mg/dL [facility] Estimated Glomerular Filtration Rate 82 mL/min/1.73m >=60 mL/min/1.73m [facility] Glucose [Mass/Vol] 109 mg/dL High 74 - 99 mg/dL [facility] Potassium [Moles/Vol] 4.9 mmol/L 3.7 - 5.1 mmol/L [facility] Protein [Mass/Vol] 7.5 g/dL 6.3 - 8.0 g/dL [facility] Sodium [Moles/Vol] 143 mmol/L 136 - 144 mmol/L [facility] Urea nitrogen [Mass/Vol] 20 mg/dL 9 - 24 mg/dL [facility] Free PSA [Mass/Vol]on 2022 Free PSA/Total PSA [Mass fraction] 12 % [facility] Prostate specific Ag [Mass/Vol] 7.71 ng/mL High <2.60 ng/mL [facility] HbA1c (Bld)on 03-10-2023 Average glucose Estimated from glycated hemoglobin (Bld) [Mass/Vol] 105 mg/dL [facility] HbA1c (Bld) [Mass fraction] 5.3 % 4.3 - 5.6 % [facility] LIPID PANEL, NONFASTINGon Cholesterol [Mass/Vol] 176 mg/dL <200 mg/dL [facility] HDL Cholesterol, Nonfasting 38 mg/dL Low >39 mg/dL [facility] LDL Cholesterol, Nonfasting 106 mg/dL High <100 mg/dL [facility] LDL/HDL Ratio, Nonfasting 2.79 mg/dL High <2.54 mg/dL [facility] Non HDL Cholesterol, Nonfasting 138 mg/dL High <130 mg/dL [facility] Total Chol/HDL Ratio, Nonfasting 4.63 mg/dL <5.10 mg/dL [facility] Triglycerides, Nonfasting 161 mg/dL High <150 mg/dL [facility] VLDL Cholesterol, Nonfasting 32 mg/dL High <30 mg/dL [facility] VITAMIN D 25 HYDROXYon 03-10 25-hydroxyvitamin D3 [Mass/Vol] 37.5 ng/mL 31.0 - 80.0 ng/mL [facility] XR Shoulder - right 3 Viewso n 03-10-2023 Radiology Study observation (narrative) [facility] CBC W/DIFF/PLT (EXTERNAL LAB MARY LOU)on 09-21-2022 BASO ABSOLUTE 0.0 k/uL 0.0 - 0.2 k/uL [facility] Basophils/100 WBC (Bld) 0.8 % [facility] EOS ABSOLUTE 0.2 k/uL 0.0 - 0.4 k/uL [facility] Eosinophils/100 WBC (Bld) 3.4 % [facility] Erythrocyte distribution width (RBC) [Ratio] 12.7 % 12.3 - 15.4 % [facility] Hematocrit (Bld) [Volume fraction] 42.5 % 37.5 - 51.0 % [facility] Hemoglobin (Bld) [Mass/Vol] 14.8 g/dL 12.6 - 17.7 g/dL [facility] Immature Gran % [facility] IMMATURE GRANS ABSOLUTE [facility] Lymphocytes (Bld) [#/Vol] 1.2 10*3/uL 0.7 - 3.1 k/uL [facility] Lymphocytes/100 WBC (Bld) 22.0 % [facility] MCH 33.4 Pg Abnormal 26.6 - [address] [facility] MCHC (RBC) [Mass/Vol] 34.9 g/dL 31.5 - 35.7 g/dL [facility] MCV (RBC) [Entitic vol] 95.5 fL 79 - [address] [facility] Monocytes (Bld) [#/Vol] 0.6 10*3/uL 0.1 - 0.9 k/uL [facility] Monocytes/100 WBC (Bld) 10.4 % [facility] NEUTROPHILS ABSOLUTE 3.3 k/uL 1.4 - 7.0 k/uL [facility] Neutrophils/100 WBC (Bld) 63.4 % [facility] Platelets (Bld) [#/Vol] 182 10*3/uL 150 - 379 k/uL [facility] RBC (Bld) [#/Vol] 4.45 10*6/uL 4.14 - 5.8 0 M/uL [facility] WBC (Bld) [#/Vol] 5.3 10*3/uL 3.4 - 10.8 K/uL [facility] CMP (EXTERNAL)on 09-21-2022 Albumin [Mass/Vol] 3.9 g/dL 3.2 - 4.6 gm/dL [facility] Alk Phos Total 56 U/L 45 - 117 U/L [facility] ALT [Catalytic activity/Vol] 44 U/L 12 - 78 U/L [facility] AST [Catalytic activity/Vol] 30 U/L 8 - 37 U/L [facility] Bili Total 0.9 mg/dL 0.2 - 1 mg/dL [facility] Calcium [Mass/Vol] 9.7 mg/dL 8.5 - 10.1 mg/dL [facility] Chloride [Moles/Vol] 107 mmol/L 98 - 107 MEQ/L [facility] CO2 [Moles/Vol] 27 mmol/L 21 - 32 MEQ/L [facility] Creatinine [Mass/Vol] 1.1 mg/dL 0.6 - 1.3 MG/DL [facility] GFR AFR AMER [facility] GFR/1.73 sq M.predicted among non-blacks MDRD (S/P/Bld) [Vol rate/Area] 70 mL/min/{1.73_m2} [facility] Glucose [Mass/Vol] 112 mg/dL Abnormal 74 - 106 MG/DL [facility] Potassium [Moles/Vol] 4.3 mmol/L 3.5 - 5.1 mmol/L [facility] Protein [Mass/Vol] 7.1 g/dL 6.4 - 8.2 gm/dL [facility] Sodium [Moles/Vol] 142 mmol/L 136 - 145 mmol/L [facility] Urea nitrogen [Mass/Vol] 18 mg/dL 7 - 18 MG/DL [facility] LIPID PANEL (OUTSIDE)on 09-08 Cholesterol [Mass/Vol] 177 mg/dL [address] [facility] Cholesterol in HDL [Mass/Vol] 38 mg/dL Abnormal [address] [facility] Cholesterol in LDL [Mass/Vol] 127 mg/dL [address] [facility] LDL:HDL Ratio [facility] Non-HDL Cholesterol [facility] TC:HDL Ratio [facility] Triglyceride [Mass/Vol] 171 mg/dL Abnormal [address] [facility] VLDL Cholesterol [facility] PSA (OUTSIDE)on 09-21-2022 Free PSA, Serum 12.8% [facility] US SCREENING FOR AAAon 03-[address] [facility] CBCDIF (EXTERNAL)on 10-10-19 22 BASO ABS 0.1 K/uL 0 - 0.2 K/uL [facility] Basophils/100 WBC (Bld) 1.2 % 0 - 1.5 % [facility] EOS ABS 0.2 K/uL 0.1 - 0.3 K/uL [facility] Eosinophils/100 WBC (Bld) 3.4 % Abnormal 1 - 3 % [facility] Hematocrit (Bld) [Volume fraction] 42.6 % 39 - 55 % [facility] Hemoglobin (Bld) [Mass/Vol] 14.5 g/dL 14 - 16.5 g/dL [facility] Lymphocytes (Bld) [#/Vol] 1.0 10*3/uL Abnormal 1.2 - 4 K/uL [facility] Lymphocytes/100 WBC (Bld) 21.9 % 20 - 30 % [facility] MCH (RBC) [Entitic mass] 32.0 pg 25.4 - 34.[address] [facility] MCHC (RBC) [Mass/Vol] 34.0 g/dL 30 - 36 g/dL [facility] MCV (RBC) [Entitic vol] 94.2 fL 79 - [address] [facility] MONO ABS 0.5 K/uL 0 - 1 K/uL [facility] Monocytes/100 WBC (Bld) 10.2 % Abnormal 2 - 8 % [facility] NEUT ABS 2.8 K/uL 1.9 - 8 K/uL [facility] Neutrophils/100 WBC (Bld) 63.3 % 40 - 74 % [facility] Nucleated RBC (Bld) [#/Vol] 0.1 10*3/uL [facility] Platelet mean volume (Bld) [Entitic vol] 9.5 fL 7.4 - 10.[address] [facility] Platelets (Bld) [#/Vol] 178 10*3/uL 140 - 440 K/uL [facility] RBC (Bld) [#/Vol] 4.52 10*6/uL 4 - 6 M/uL [facility] RDW 12.7 K/uL Abnormal 140 - 440 K/uL [facility] WBC (Bld) [#/Vol] 4.5 10*3/uL 3.9 - 11 K/uL [facility] CMP (EXTERNAL)on 10-09-2021 Albumin [Mass/Vol] 4.1 g/dL 3.2 - 4.6 gm/dL [facility] Alk Phos Total 63 U/L 45 - 117 U/L [facility] ALT [Catalytic activity/Vol] 41 U/L 12 - 78 U/L [facility] Anion gap [Moles/Vol] 17 mmol/L 10 - 20 mmol/L [facility] AST [Catalytic activity/Vol] 35 U/L 8 - 37 U/L [facility] Bili Total 1.0 mg/dL 0.2 - 1 mg/dL [facility] Calcium [Mass/Vol] 9.5 mg/dL 8.5 - 10.1 mg/dL [facility] Chloride [Moles/Vol] 105 mmol/L 98 - 107 MEQ/L [facility] CO2 [Moles/Vol] 24 mmol/L 21 - 32 MEQ/L [facility] Creatinine [Mass/Vol] 1.0 mg/dL 0.6 - 1.3 MG/DL [facility] GFR AFR AMER [facility] GFR/1.73 sq M.predicted among non-blacks MDRD (S/P/Bld) [Vol rate/Area] 79 mL/min/{1.73_m2} [facility] Magnesium.plasma/ Magnesium.RBC (Bld) [Molar ratio] 1.9 mg/dL 1.8 - 2.4 mg/dL [facility] Potassium [Moles/Vol] 4.0 mmol/L 3.5 - 5.1 mmol/L [facility] Protein [Mass/Vol] 7.2 g/dL 6.4 - 8.2 gm/dL [facility] Sodium [Moles/Vol] 142 mmol/L 136 - 145 mmol/L [facility] Urea nitrogen [Mass/Vol] 16 mg/dL 7 - 18 MG/DL [facility] HBA1C (OUTSIDE)on 10-09-2021 HbA1c (Bld) [Mass fraction] 5.5 % 3.6 - % [facility] LIPID PANEL (OUTSIDE)on Cholesterol [Mass/Vol] 168 mg/dL 135 - 200 mg/dL [facility] Cholesterol in HDL [Mass/Vol] 35 mg/dL 35 - 80 mg/dL [facility] Cholesterol in LDL [Mass/Vol] 129 mg/dL Abnormal 0 - 110 mg/dL [facility] LDL:HDL Ratio [facility] Non-HDL Cholesterol [facility] TC:HDL Ratio [facility] Triglyceride [Mass/Vol] 184 mg/dL Abnormal 0 - 150 mg/dL [facility] VLDL Cholesterol [facility] Laboratory - Chemistry and C hemistry - challengeon 10-09-2021 Glucose [Mass/Vol] 106 mg/dL 74 - 106 MG/DL [facility] T4 FREE/FREE THYROXon 2021 Free T4 [Mass/Vol] 1.22 ng/dL 0.86 - 1.52 ng/dL [facility] TSH (EXTERNAL)on 10-09-2021 TSH 1.01 IU/ml 0.2 - 5.6 IU/ml [facility] VITAMIN B12 BLOODon 10-10-19 Cobalamin (Vitamin B12) [Mass/Vol] 802 pg/mL 150 - 900 pg/mL [facility] Vital Signs Date Time Vital Sign Value Performing Clinician Michellei ninfa 03-23-2024 12:39-0400 Diastolic blood pressure 66 mm[Hg] Juan A Scanlon MD Work Phone: [facility] 03-23-2024 12:39-0400 Systolic blood pressure 137 mm[Hg] Juan A Scanlon MD Work Phone: [facility] 03-13-2024 09:06-0400 Diastolic blood pressure 78 mm[Hg] Juan A Scanlon MD Work Phone: [facility] 03-13-2024 09:06-0400 Systolic blood pressure 144 mm[Hg] Juan A Scanlon MD Work Phone: [facility] 03-13-2024 07:50-0400 Body height 176.5 cm Juan A Scanlon MD Work Phone: [facility] 03-13-2024 07:50-0400 Body mass index (BMI) [Ratio] 30.86 kg/m2 Juan A Scanlon MD Work Phone: [facility] 03-13-2024 07:50-0400 Body weight 96.16 kg Juan A Scanlon MD Work Phone: [facility] 03-13-2024 07:50-0400 Heart rate 80 /min Juan A Scanlon MD Work Phone: [facility] 03-13-2024 07:50-0400 Respiratory rate 16 /min Juan A Scanlon MD Work Phone: [facility] 03-10-2023 08:39-0400 Diastolic blood pressure 72 mm[Hg] Juan A Scanlon MD Work Phone: [facility] 03-10-2023 08:39-0400 Systolic blood pressure 137 mm[Hg] Juan A Scanlon MD Work Phone: [facility] 03-10-2023 08:08-0400 Body height 175.9 cm Juan A Scanlon MD Work Phone: [facility] 03-10-2023 08:08-0400 Body weight 94.8 kg Juan A Scanlon MD Work Phone: [facility] 03-10-2023 08:08-0400 Heart rate 64 /min Juan A Scanlon MD Work Phone: [facility] 03-10-2023 08:08-0400 Respiratory rate 16 /min Juan A Scanlon MD Work Phone: [facility] 03-23-2022 12:59-0400 Diastolic blood pressure 82 mm[Hg] Mi Nurse Work Phone: [facility] 03-23-2022 12:59-0400 Heart rate 89 /min Mi Nurse Work Phone: [facility] 03-23-2022 12:59-0400 Systolic blood pressure 140 mm[Hg] Mi Nurse Work Phone: [facility] 03-23-2022 12:52-0400 Diastolic blood pressure 81 mm[Hg] Juan A Scanlon MD Work Phone: [facility] 03-23-2022 12:52-0400 Systolic blood pressure 137 mm[Hg] Juan A Scanlon MD Work Phone: [facility] 03-09-2022 08:36-0400 Diastolic blood pressure 84 mm[Hg] Juan A Scanlon MD Work Phone: [facility] 03-09-2022 08:36-0400 Systolic blood pressure 160 mm[Hg] Juan A Scanlon MD Work Phone: [facility] 03-09-2022 07:59-0400 Body height 177.5 cm Juan A Scanlon MD Work Phone: [facility] 03-09-2022 07:59-0400 Body weight 97.07 kg Juan A Scanlon MD Work Phone: [facility] 03-09-2022 07:59-0400 Heart rate 83 /min Juan A Scanlon MD Work Phone: [facility] 03-09-2022 07:59-0400 Respiratory rate 12 /min Juan A Scanlon MD Work Phone: [facility] 03-09-2022 07:59-0400 SaO2% (BldA) [Mass fraction] 98 % Juan A Scanlon MD Work Phone: [facility] Encounters Encounter Date Encounter Type Care Provider Facility Start: 03-23-2024 End: 03-23-2024 ambulatory Juan A Scanlon MD Work Phone: [facility] Comment on above: blood pressure Start: 03-13-2024 End: 03-14-2024 Telephone encounter Juan A Scanlon MD Work Phone: [facility] Comment on above: Results Start: 03-13-2024 End: 03-13-2024 ambulatory JUAN A GHISLAINE Facility:[facility] Start: 03-13-2024 End: 03-13-2024 Patient encounter procedure Juan A Scanlon MD Work Phone: [facility] Comment on above: Medicare annual surgical specialty hospital-coordinated hlths visit, subsequent (Primary Dx); Essential hypertension, benign; Hyperlipidemia, mixed; Elevated blood sugar; Gastroesophageal reflux disease without esophagitis; Vitamin D deficiency; Prostate cancer (HCC); Benign prostatic hyperplasia without lower urinary tract symptoms; 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; Incisional hernia, without obstruction or gangrene; Encounter for screening examination for other mental health and behavioral disorders; Advance directive discussed with patient; Screening for depression; Elevated LFTs; Hyperkalemia Start: 03-02-2024 End: 03-02-2024 [facility] JUAN A SCANLON Facility:[facility] Start: 02-29-2024 End: 02-29-2024 Telephone encounter Juan A Scanlon MD Work Phone: [facility] Comment on above: Orders Start: 11-08-2023 Chart abstracting [facility] Comment on above: Consult Start: 10-28-2023 Chart abstracting Juan A starnge MD Work Phone: [facility] Comment on above: Ext / Labs Start: 10-26-2023 Chart abstracting [facility] Comment on above: Results, Lab Start: 06-22-2023 Chart abstracting Juan A strange MD Work Phone: [facility] Comment on above: Outside Start: 06-01-2023 Chart abstracting Juan A strange MD Work Phone: [facility] Comment on above: Outside [id number] Ordered Start: 03-14-2023 Telephone encounter Juan A Scanlon MD Work Phone: [facility] Comment on above: Results Start: 03-11-2023 Telephone encounter Juan A Scanlon MD Work Phone: [facility] Comment on above: Results Start: 03-10-2023 End: 03-10-2023 Subsequent hospital visit by physician Miranda [facility] Work Phone: Radiology Comment on above: Mass of shoulder reg ion [R22.30] Start: 03-10-2023 End: 03-10-2023 Patient encounter procedure Juan A Scanlon MD Work Phone: [facility] Comment on above: Medicare annual well ness visit, subsequent (Primary Dx); Essential hypertension, benign; Hyperlipidemia, mixed; Gastroesophageal reflux disease without esophagitis; Elevated blood sugar; Asymptomatic varicose veins of left lower extremity; Vitamin D deficiency; Benign prostatic hyperplasia without lower urinary tract symptoms; Advance directive discussed with patient; Elevated PSA; Mass of shoulder region Start: 11-11-2022 Chart abstracting Juan A strange MD Work Phone: [facility] Comment on above: outside imagina (Add endum to CT scan) Start: 10-18-2022 Chart abstracting Juan A strange MD Work Phone: [facility] Comment on above: Results Start: 09-26-2022 ambulatory Juan A monreal MD Work Phone: [facility] [place] Start: 03-23-2022 Telephone encounter Juan A Scanlon MD Work Phone: [facility] [place] Comment on above: Blood Pressure Start: 03-23-2022 End: 03-23-2022 Nursing evaluation of patient and report Mi Nurse Work Phone: [facility] Comment on above: Essential hypertensi on, benign (Primary Dx) Start: 03-15-2022 Telephone encounter Juan A Scanlon MD Work Phone: [facility] Comment on above: Results Start: 03-12-2022 End: 03-12-2022 Subsequent hospital visit by physician [facility] Work Phone: Radiology Comment on above: Screening for abdomi nal aortic aneurysm [Z13.6] Start: 03-09-2022 End: 03-09-2022 Patient encounter procedure Juan A Scanlon MD Work Phone: [facility] Comment on above: Medicare annual well ness visit, subsequent (Primary Dx); Essential hypertension, benign; Hyperlipidemia, mixed; Gastroesophageal reflux disease without esophagitis; Asymptomatic varicose veins of left lower extremity; Vitamin D deficiency; Benign prostatic hyperplasia without lower urinary tract symptoms; Elevated PSA; Psoriasis; Rosacea; Arthritis of right knee; Ex-smoker; Screening for abdominal aortic aneurysm; Advance directive discussed with patient; Medication management Start: 10-12-2021 Chart abstracting Juan A strange MD Work Phone: [facility] Comment on above: Outside Labs Results Start: 03-06-2021 Patient encounter procedure Juan A Scanlon MD Work Phone: [facility] Work Phone: Procedures Date Procedure Procedure Detail Performing Clinician Start: 03-13-2024 Adult depression scr eening assessment Juan A Scanlon MD Work Phone: Start: 03-10-2023 Radex shoulder compl ete minimum 2 views Juan A Scanlon MD Work Phone: Start: 03-10-2023 Lipid 1996 panel - S elva or Plasma Juan A Scanlon MD Work Phone: Start: 09-21-2022 CBC W/DIFF/PLT ([facility]) [facility] Provider Start: 09-21-2022 Comprehensive metabo lic 2000 panel - Serum or Plasma [facility] Provider Start: 09-21-2022 Lipid panel [facility] Provid er Start: 09-21-2022 PSA screening [facility] Start: 03-12-2022 Us abdominal aorta r eal time screen study aaa Juan A Scanlon MD Work Phone: Start: 03-09-2022 Adult depression scr eening assessment Juan A Scanlon MD Work Phone: Start: 10-09-2021 CBCDIF (EXTERNAL) [facility] P rovider Start: 10-09-2021 Comprehensive metabo lic 2000 panel - Serum or Plasma [facility] Provider Start: 10-09-2021 Glucose [Mass/volume ] in Serum or Plasma [facility] Provider Start: 10-09-2021 Hemoglobin A1c/Hemoglobin.total in Blood [facility] Provider Start: 10-09-2021 Lipid panel [facility] Provid er Start: 10-09-2021 PSA screening [facility] Start: 10-09-2021 T4 FREE/FREE THYROX [facility] Provider Start: 10-09-2021 Thyrotropin [Units/v olume] in Serum or Plasma [facility] Provider Start: 10-09-2021 VITAMIN B12 BLOOD [facility] Tyler martinez Start: 03-05-2021 Adult depression scr eening assessment Juan A Scanlon MD Work Phone: Start: 10-17-2014 Colonoscopy Juan A strange MD Work Phone: Plan of Treatment Date Care Activity Detail Author Start: 12-31-2032 Urine microalbumin profile DTaP,Tdap,Td Vaccine (4 - Td or Tdap) [facility] Start: 03-10-2028 Lipid 1996 panel - S elva or Plasma Lipid Screening [facility] Start: 03-10-2028 Lipid panel Lipid Screening [facility] Start: 03-10-2028 LIPID SCREEN LIPID SCREEN [facility] Start: 09-22-2027 LIPID SCREEN LIPID SCREEN [facility] Start: 03-13-2027 Diabetes Screening Diabetes Screenin [facility] Start: 03-12-2027 LIPID SCREEN LIPID SCREEN [facility] Start: 01-26-2027 Urine microalbumin profile [facility] Start: 10-09-2026 LIPID SCREEN [facility]CREEN [facility] [facility] Start: 03-10-2026 DIABETES SCREEN DIABETES SCREEN [facility] Start: 03-10-2026 Diabetes Screening Diabetes Screenin [facility] Start: 09-21-2025 DIABETES SCREEN DIABETES SCREEN [facility] Start: 03-13-2025 Annual PCP Team Supervisor Cellars jhonny Disease Visit Annual PCP Team Chronic Disease Visit [facility] Start: 03-13-2025 Anxiety Screening Anxiety Screening [facility] Start: 03-13-2025 Covid-19 Vaccine () Covid-19 Vaccine () [facility] Comment on above: Postponed from 03/11 (Currently Scheduled) Start: 03-13-2025 Depression Screening Depression Scre ening [facility] Start: 03-13-2025 End: 03-13-2025 Patient encounter procedure 03/13/2025 8:00 AM EDT Office Visit Family Medicine [facility] [address] [place] [address] Juan A Scanlon MD [address] [place] [address] Medicare wellness [facility] Comment on above: Medicare wellness Start: 03-12-2025 DIABETES SCREEN DIABETES SCREEN [facility] Start: 02-22-2025 End: 05-24-2025 25-hydroxyvitamin D3 [Mass/volume] in Serum or Plasma VITAMIN D 25 HYDROXY Lab Routine Vitamin D deficiency Expected: 02/22/2025, Expires: 05/24/2025 [facility] Work Phone: Comment on above: Expected: 02/22/2025 , Expires: 05/24/2025 Start: 02-22-2025 End: 05-24-2025 Comprehensive metabolic 2000 panel - Serum or Plasma COMPREHENSIVE METABOLIC PANEL Lab Routine Essential hypertension, benign Hyperlipidemia, mixed Elevated blood sugar Expected: 02/22/2025, Expires: 05/24/[address] [facility] Comment on above: Expected: 02/22/2025 , Expires: 05/24/2025 Start: 02-22-2025 End: 05-24-2025 Hemoglobin A1c in Blood HEMOGLOBIN A1C Lab Routine Elevated blood sugar Expected: 02/22/2025, Expires: 05/24/[address] [facility] Comment on above: Expected: 02/22/2025 , Expires: 05/24/2025 Start: 02-22-2025 End: 05-24-2025 LIPID PANEL, NONFASTING LIPID PANEL, NONFASTING Lab Routine Essential hypertension, benign Hyperlipidemia, mixed Expected: 02/22/2025, Expires: 05/24/[address] [facility] Comment on above: Expected: 02/22/2025 , Expires: 05/24/2025 Start: 02-22-2025 End: 05-24-2025 Urinalysis complete panel - Urine URINALYSIS, WITH MICROSCOPIC Lab Routine Essential hypertension, benign Hyperlipidemia, mixed Expected: 02/22/2025, Expires: 05/24/[address] [facility] Comment on above: Expected: 02/22/2025 , Expires: 05/24/2025 Start: 01-07-2025 Influenza vaccination Influenza Vacc ine (#1) [facility] Comment on above: Postponed from 03/11 (Currently Scheduled) Start: 10-17-2024 Colonoscopy COLONOSCOPY [facility] Start: 10-17-2024 COLORECTAL CANCER SCREENING COLORECTAL CANCER SCREENING [facility] Start: 10-17-2024 Screening for malign ant neoplasm of colon 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 Start: 03-10-2024 BP CONTROLLED (<130/80) BP CONTROLLE D (<130/80) [facility] Start: 02-29-2024 End: 05-30-2024 25-hydroxyvitamin D3 [Mass/volume] in Serum or Plasma VITAMIN D 25 HYDROXY Lab Routine Vitamin D deficiency Expected: 02/29/2024, Expires: 05/30/[address] [facility] Comment on above: Expected: 02/29/2024 , Expires: 05/30/2024 Start: 02-29-2024 End: 05-30-2024 Comprehensive metabolic 2000 panel - Serum or Plasma COMPREHENSIVE METABOLIC PANEL Lab Routine Essential hypertension, benign Hyperlipidemia, mixed Expected: 02/29/2024, Expires: 05/30/2024 [facility] Work Phone: Comment on above: Expected: 02/29/2024 , Expires: 05/30/2024 Start: 02-29-2024 End: 05-30-2024 Hemoglobin A1c in Blood HEMOGLOBIN A1C Lab Routine Elevated blood sugar Expected: 02/29/2024, Expires: 05/30/[address] [facility] Comment on above: Expected: 02/29/2024 , Expires: 05/30/2024 Start: 02-29-2024 End: 05-30-2024 LIPID PANEL, NONFASTING LIPID PANEL, NONFASTING Lab Routine Essential hypertension, benign Hyperlipidemia, mixed Expected: 02/29/2024, Expires: 05/30/[address] [facility] Comment on above: Expected: 02/29/2024 , Expires: 05/30/2024 Start: 02-29-2024 End: 05-30-2024 Urinalysis complete panel - Urine URINALYSIS, WITH MICROSCOPIC Lab Routine Essential hypertension, benign Hyperlipidemia, mixed Expected: 02/29/2024, Expires: 05/30/[address] [facility] Comment on above: Expected: 02/29/2024 , Expires: 05/30/2024 Start: 07-11-2023 Advance Directive Discussion Advance Directive Discussion [facility] Start: 07-11-2023 Behavioral Health Screening Behavioral Health Screening [facility] Start: 03-11-2023 Covid-19 Vaccine () Covid-19 Vaccine () [facility] Start: 03-11-2023 Influenza vaccination [facility] Start: 03-10-2023 End: 05-10-2023 Urinalysis complete panel - Urine [facility] Work Phone: Comment on above: Expected: 03/10/2023 , Expires: 05/10/2023 Start: 03-09-2023 Adult depression screening assessment DEPRESSION SCREENING 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 Start: 07-11-2022 ADVANCE DIRECTIVE DISCUSSION ADVANCE DIRECTIVE DISCUSSION [facility] Start: 07-11-2022 DEPRESSION ASSESSMENT DEPRESSION ASS ESSMENT [facility] Start: 06-16-2022 COVID-19 VACCINE (5 - Pfizer risk series) COVID-19 VACCINE (5 - Pfizer risk series) [facility] Start: 03-11-2022 Influenza vaccination [facility] Start: 03-09-2022 End: 05-09-2022 25-hydroxyvitamin D3 [Mass/volume] in Serum or Plasma VITAMIN D 25 HYDROXY Lab Routine Vitamin D deficiency Expected: 03/09/2022, Expires: 05/09/2022 [facility] Work Phone: Comment on above: Expected: 03/09/2022 , Expires: 05/09/2022 Start: 03-09-2022 End: 05-09-2022 CBC W Auto Differential panel - Blood CBC + DIFF Lab Routine Medication management Expected: 03/09/2022, Expires: 05/09/2022 [facility] Work Phone: Comment on above: Expected: 03/09/2022 , Expires: 05/09/2022 Start: 03-09-2022 End: 05-09-2022 Comprehensive metabolic 2000 panel - Serum or Plasma COMP METABOLIC PANEL Lab Routine Essential hypertension, benign Hyperlipidemia, mixed Expected: 03/09/2022, Expires: 05/09/2022 [facility] Work Phone: Comment on above: Expected: 03/09/2022 , Expires: 05/09/2022 Start: 03-09-2022 End: 05-09-2022 LIPID PANEL, NONFASTING LIPID PANEL, NONFASTING Lab Routine Essential hypertension, benign Hyperlipidemia, mixed Expected: 03/09/2022, Expires: 05/09/2022 [facility] Work Phone: Comment on above: Expected: 03/09/2022 , Expires: 05/09/2022 Start: 03-09-2022 End: 05-09-2022 Prostate Specific Ag Free [Mass/volume] in Serum or Plasma PSA FREE Lab Routine Elevated PSA Expected: 03/09/2022, Expires: 05/09/2022 [facility] Work Phone: Comment on above: Expected: 03/09/2022 , Expires: 05/09/2022 Start: 03-09-2022 End: 05-09-2022 Urinalysis complete panel - Urine URINALYSIS, WITH MICROSCOPIC Lab Routine Essential hypertension, benign Hyperlipidemia, mixed Expected: 03/09/2022, Expires: 05/09/2022 [facility] Work Phone: Comment on above: Expected: 03/09/2022 , Expires: 05/09/2022 Start: 03-06-2022 ANNUAL 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 Start: 03-05-2022 Adult depression screening assessment DEPRESSION SCREENING [facility] Start: 08-15-2021 COVID-19 VACCINE (4 - Booster for Pfizer series) COVID-19 VACCINE (4 - Booster for Pfizer series) [facility] Start: 07-11-2021 ADVANCE DIRECTIVE DISCUSSION ADVANCE DIRECTIVE DISCUSSION [facility] Start: 06-09-2021 COVID-19 VACCINE (4 - Booster for Pfizer series) COVID-19 VACCINE (4 - Booster for Pfizer series) [facility] Start: 02-15-2021 COVID-19 VACCINE (3 - Booster for Pfizer series) COVID-19 VACCINE (3 - Booster for Pfizer series) [facility] Start: 11-16-2017 SHINGRIX VACCINE (2 of 3) SHINGRIX VACCINE (2 of 3) [facility] Start: 2007 RSV Vaccine (1 - 1-d ose 60+ series) RSV Vaccine (1 - 1-dose 60+ series) [facility] Start: 11-08-1992 COLOGUARD (FIT-DNA) COLOGUARD (FIT-D NA) [facility] Start: 11-08-[address] COLONOGRAPHY [facility] Start: 11-08-1992 FECAL OCCULT BLOOD FECAL OCCULT BLOO D [facility] Start: 11-08-1992 Screening for malign ant neoplasm of colon [facility] Start: 11-08-1992 SIGMOIDOSCOPY SIGMOIDOSCOPY [facility] Start: 11-08-1965 Anxiety Screening Anxiety Screening [facility] Start: 11-08-1965 BP CONTROLLED (<130/80) BP CONTROLLE D (<130/80) [facility] Start: 11-08-1965 Depression Screening Depression Scre ening [facility] Start: 1945 ABDOMINAL AORTIC ANEURYSM SCREENING ABDOMINAL AORTIC ANEURYSM SCREENING [facility] End: 04-07-2023 Us abdominal aorta real time screen study aaa US SCREENING FOR AAA Radiology Routine Screening for abdominal aortic aneurysm Ex-smoker 1 Occurrences starting 03/09/2022 until 04/07/2023 [facility] Work Phone: Comment on above: 1 Occurrences starti ng 03/09/2022 until 04/07/2023 End: 04-08-2024 XR SHOULDER GENERAL 3V OR MORE AP/TRUE AP/OTHER RIGHT XR SHOULDER GENERAL 3V OR MORE AP/TRUE AP/OTHER RIGHT Radiology Routine Mass of shoulder region 1 Occurrences starting 03/10/2023 until 04/08/2024 [facility] Work Phone: Comment on above: 1 Occurrences starti ng 03/10/2023 until 04/08/2024 XR SHOULDER GENERAL 3V OR MORE AP/TRUE AP/OTHER RIGHT XR SHOULDER GENERAL 3V OR MORE AP/TRUE AP/OTHER RIGHT Radiology Routine Mass of shoulder region 03/10/2023 9:32 AM EDT [facility] Work Phone: [facility] Immunizations Immunization Date Immunization Notes Care Provider [facility] 04-14-2023 influenza virus vacc ine, unspecified formulation Juan A Scanlon MD Work Phone: [facility] 04-21-2022 influenza virus vacc ine, unspecified formulation Jua nA Scanlon MD Work Phone: [facility] 04-14-2021 COVID-19 vaccine, ag e 12+ yr (PFIZER-BIONTECH - PURPLE TOP) Juan A Scanlon MD Work Phone: [facility] Work Phone: 10-17-2020 pneumococcal polysaccharide vaccine, 23 valent Juan A Scanlon MD Work Phone: [facility] Work Phone: 09-15-2020 COVID-19 vaccine, ag e 12+ yr (PFIZER-BIONTECH - PURPLE TOP) Juan A Scanlon MD Work Phone: [facility] 08-28-2020 COVID-19 vaccine, ag e 12+ yr (PFIZER-BIONTECH - PURPLE TOP) Juan A Scanlon MD Work Phone: [facility] 04-19-2019 pneumococcal conjuga te vaccine, 13 valent Juan A Scanlon MD Work Phone: [facility] Work Phone: 11-28-2017 zoster vaccine recombinant Juan A Scanlon MD Work Phone: [facility] Work Phone: 09-21-2017 zoster vaccine recombinant Juan A Scanlon MD Work Phone: [facility] Work Phone: 09-21-2017 zoster vaccine, live Juan A Scanlon MD Work Phone: [facility] 01-26-2017 tetanus toxoid, redu toña diphtheria toxoid, and acellular pertussis vaccine, adsorbed Juan A Scanlon MD Work Phone: [facility] 08-03-2012 diphtheria, tetanus toxoids and acellular pertussis vaccine, unspecified formulation Juan A Scanlon MD Work Phone: [facility] Work Phone: Payers Date Payer Category Payer Private Health Insurance [facility] AARP SUPPLEMENT [id number] 2013-Present [phone] [address] [place] [address] Indemnity [id number] 2013 Private Health Insurance [facility] AARP SUPPLEMENT [id number] 2013-Present [phone] [address] [place] [address] Indemnity [id number] 2013 Unknown [id number] 2012 Medicare MEDICARE MEDICAR E A AND B [id number] 2012-Present [phone] [place] [address] Medicare [id number] 2012 Medicare MEDICARE MEDICAR E A AND B [id number] 2012-Present [phone] [place] [address] Medicare [id number] 2012 Medicare [id number] Social History Date Type Detail Facility Start: 03-09-2022 End: 03-13-2024 Tobacco smoking status NHIS Ex-smoker [facility] Start: 07-11-1975 End: 07-11-1990 History of tobacco use Current smoker [facility] Start: 03-06-2021 End: 03-10-2023 Alcohol intake Current drinker of alcohol (finding) [facility] Start: 03-05-2021 End: 03-04-2022 History SDOH Alcohol Frequency [address] [facility] Start: 03-05-2021 End: 03-04-2022 History SDOH Alcohol Std Drinks [address] [facility] Start: 09-20-2013 History SDOH Alcohol Comment very little [facility] Start: 03-05-2021 History SDOH Social Connections Phone [address] [facility] Start: 03-05-2021 History SDOH Social Connections Get Together [address] [facility] Start: 03-05-2021 History SDOH Social Connections Confucianist [address] [facility] Start: 03-05-2021 Education [address] [facility] Start: 1945 Sex Assigned At Not on file [facility] Start: 07-11-1975 End: 07-11-1990 History of tobacco use Cigarette Smoker [facility] Work Phone: Start: 03-09-2022 End: 03-03-2023 Cigarettes smoked current (pack per day) - Reported [address] [facility] Start: 03-09-2022 End: 03-13-2024 Tobacco use and exposure Smokeless tobacco non-user [facility] Work Phone: Start: 02-28-2022 End: 03-10-2022 Exposure to SARS-CoV-2 (event) Unable to assess [facility] Work Phone: Start: 03-03-2023 End: 03-10-2023 Social connection and isolation panel [facility] Do you belong to any clubs or organizations such as yazdanism groups, unions, fraternal or athletic groups, or school groups? Yes [facility] Are you now , , , , never or living with a partner? [facility] How often to you hav e a drink containing alcohol? Monthly or less [facility] How many standard dr inks containing alcohol do you have on a typical day? 1 or [address] [facility] How often do you hav e 6 or more drinks on 1 occasion? Never [facility] How hard is it for y ou to pay for the very basics like food, housing, medical care, and heating Not hard at all [facility] Do you feel stress - tense, restless, nervous, or anxious, or unable to sleep at night because your mind is troubled all the time - these days [OSQ] Not at all [facility] (I/We) worried wheth er (my/our) food would run out before (I/we) got money to buy more. Never true [facility] In the past 12 month s, was there a time when you were not able to pay the mortgage or rent on time? No [facility] Clinical Notes 10-02-2018 to 03-23-2024 Juan A Scanlon MD - 03/23/2024 12:39 PM EDTTelephone Encounter - Leilani Bhatia MA - 03/23/2024 10:12 AM EDTTelephone Encounter - Leilani Bhatia MA - 03/23/2024 10:12 AM EDT Note Date & Type Note Facility 03-23-2024 Note HNO ID: [id number] Author: JUAN A SCANLON MD Service: ? Author Type: Physician Type: Progress Notes Filed: 03/23/2024 12:39 Note Text: BP 134/66 [facility] 03-23-2024 History of Present illness Narrative BP 134/66 documented in this encounter [facility] 03-23-2024 Telephone encounter Note See pt [employer] message regarding her BP readings. Leilani Bhatia MA [facility] 03-23-2024 Miscellaneous Notes See pt [employer] message regarding her BP readings. Leilani Bhatia MA documented in this encounter [facility] 03-14-2024 Miscellaneous Notes Patient notified and voiced understanding. Rios Austin MA Let patient know his repeat liver functions and potassium were normal. documented in this encounter [facility] 03-14-2024 Telephone encounter Note Patient notified and voiced understanding. Rios Austin MA [facility] 03-13-2024 Telephone encounter Note Let patient know his repeat liver functions and potassium were normal. [facility] 03-13-2024 Nurse Note Ame BP Average 144/78 150/85 148/80 146/77 144/80 145/79 Patient checks his BP at home. He is going to check this week and let us know his readings. Rios Austin MA [facility] 03-13-2024 Nurse Note Ame BP Average 144/78 150/85 148/80 146/77 144/80 145/79 Patient checks his BP at home. He is going to check this week and let us know his readings. Rios Austin MA documented in this encounter [facility] 03-13-2024 Instructions Juan A Scanlon MD - 03/13/2024 8:05 AM EDT Consider getting the RSV vaccine. Please get labs and urine test done on or after 02/22/2025 prior to your next visit. Screening schedule The following prevention plan is recommended: Depression Screening Never done Anxiety Screening Never done Advance Directive Discussion due on 07/11/2023 Annual PCP Team Chronic Disease Visit due on 03/10/2024 BP Controlled (<130/80) due on 03/10/2024 Covid-19 Vaccine( season) due on 03/11/2024 Influenza Vaccine(1) due on 03/11/2024 WHAT YOU CAN DO TO PREVENT FALLS Many falls can be prevented. By making some changes, you can lower your chances of falling. Four things YOU can do to prevent falls for you* and your caregiver 1. Begin a regular exercise program Exercise is one of the most important ways to lower your chances of falling. It makes you stronger and helps you feel better. Exercises that improve balance and coordination (like Alex Chi) are the most helpful. Lack of exercise leads to weakness and increases your chances of falling. Ask your doctor or health care provider about the best type of exercise program for you. 2. Have your health care provider review your medicines Have your doctor or pharmacist review all the medicines you take, even [id number] medicines. As you get older, the way medicines work in your body can change. Some medicines, or combinations of medicines, can make you sleepy or dizzy and can cause you to fall. 3. Have your vision checked Have your eyes checked by an eye doctor at least once a year. You may be wearing the wrong glasses or have a condition like glaucoma or cataracts that limits your vision. Poor vision can increase your chances of falling. 4. Make your home safer About half of all falls happen at home. To make your home safer: Remove things you can trip over (like papers, books, clothes, and shoes) from stairs and places where you walk. Remove small throw rugs or use double-sided tape to keep the rugs from slipping. Keep items you use often in cabinets you can reach easily without using a step stool. Have grab bars put in next to your toilet and in the tub or shower. Use non-slip mats in the bathtub and on shower floors. Improve the lighting in your home. As you get older, you need brighter lights to see well. Hang light-weight curtains or shades to reduce glare. Have handrails and lights put in on all staircases. Wear shoes both inside and outside the house. Avoid going barefoot or wearing slippers. For more information, contact: Centers for Disease Control and Prevention www.cdc.gov/injury * This information may not apply if you have certain medical conditions. documented in this encounter [facility] 03-13-2024 History of Present illness Narrative Images from the original note were not included. Girma Crisostomo is a 78 year old male here for a Medicare wellness visit. Medicare Health Risk Assessment General Health Exercise: Minutes/Day Exercise: Days/Week Alcohol: Daily Use Alcohol: Drinks/Day Alcohol: 6 or more drinks Feel off balance No Concerns: Teeth/Dentures No Concerns: Sexual function Troubled by feelings None of the above Frequency: Eating healthy diet More than half the days ADLs requiring help Safety precautions in home/vehicle Yes Smoke, vape, chews tobacco No Difficulty hearing No Difficulty seeing No Current Providers Medical/Family history review Reviewed and updated problem list, medical/surgical/family/social history, medications, and allergies. Opioid use review Opioid Medications (last 90 days) No data to display Anxiety/Depression screening PHQ-2 Score: 0 (Lower risk for depression) Recommendation: no further intervention at this time Cognitive screening Score:5 Cognitive screening reviewed and No further action needed (score 3-5). Functional Observation Was the patient's Timed Up & Go test unsteady or ? 12 seconds? No Advance Care Planning Surrogate decision maker documented and/or advance directives scanned in chart Measurements BP 140/82 (BP Site: Left Arm, BP Position: Sitting, BP Cuff Size: Large Adult) Pulse 80 Resp 16 Ht 176.5 cm (5' 9.5 ) Wt 96.2 kg (212 lb) BMI 30.86 kg/m Vision Screening: Follows with optometry/ophthalmology Assessment/Plan Medicare annual wellness visit, subsequent (Z00.00) - Counseled on healthy diet and regular exercise - Fall avoidance information provided - Personalized prevention plan provided See Below Chief Complaint Patient presents with: Medicare Wellness Exam HPI Girma Crisostomo is a 78 year old male who presents here today for Chronic Medical Conditions. and Medicare Annual Visit. Patient with hx of HTN, hyperlipidemia, GERD, Vit D def, varicose veins, BPH, elevated PSA seeing Urology, psoriasis seeing Derm, Hx of subdural hematoma as well as those reviewed and addressed below and in ROS. Patient sees Dr Swan - last visit 10/2023 Past medical history, appointments, medications, allergies reviewed. Previous Medical History PAST MEDICAL HISTORY 03/09/2022: Advance directive discussed with patient Comment: Discussed 02/202203/06/2021: Advance directive on file 03/09/2022: Arthritis of right knee Comment: [facility]: Asymptomatic varicose veins of left lower extremity 12/11/2014: BPH (benign prostatic hyperplasia) 03/10/2023: Elevated blood sugar 03/06/2021: Elevated PSA Comment: Seeing Urology 01/21/2010: Essential hypertension, benign 03/09/2022: Ex-smoker 09/23/2015: Gastroesophageal reflux disease 09/23/2015: History of subdural hematoma Comment: old, R supratentorial. Noted on Brain MRI in 201409/23/2015: Hyperlipidemia, mixed 03/06/2021: Medicare annual wellness visit, subsequent Comment: Medical B eligibilty date 11/08/13 Date of last exam 03/09/2022 03/06/2021: Prostate cancer (HCC) Comment: [facility], [facility] 06/08/2023 No date: Psoriasis 11/16/2016: Rectus diastasis 03/09/2022: Rosacea 08/19/2014: Vitamin D deficiency Previous Surgical History PAST SURGICAL HISTORY 10/17/2014: COLONOSCOPY FLX DX W/COLLJ SPEC WHEN PFRMD Comment: Colonoscopy 10/17/2014: ESOPHAGOGASTRODUODENOSCOPY TRANSORAL DIAGNOSTIC Comment: EGD 06/05/2007: EXCISION HYDROCELE UNILATERAL Comment: right 06/05/2007: LAPS SURG RPR RECURRENT INGUINAL HERNIA Comment: right No date: PAST SURGICAL HISTORY OF Comment: repair left ankle laceration No date: PAST SURGICAL HISTORY OF Comment: achilles tendon surgery to repair tear No date: RPR 1ST INGUN HRNA AGE 7 YRS/> REDUCIBLE Comment: Hernia repair, inguinal,left No date: RPR 1ST INGUN HRNA AGE 7 YRS/> REDUCIBLE Comment: Hernia repair, inguinal,right 06/05/2007: RPR UMBILICAL HRNA 5 YRS/> REDUCIBLE 06/08/2023: TRANSURETHRAL ELEC-SURG PROSTATECTOM Comment: Dr. Swan Family History FAMILY HISTORY Problem Relation Age of Onset other (dementia) Father Hypertension Mother other (dementia) Mother other (basal cell cancer) Mother other (obesity) Brother Patient Allergies ALLERGIES Allergen Reactions Lisinopril Cough Current Medications Current Outpatient Medications on File Prior to Visit Medication Sig losartan (COZAAR) 25 mg tablet Take 1 tablet by mouth once daily. famotidine (PEPCID) 20 mg tablet Take 1 tablet by mouth once daily. Tadalafil (CIALIS) 20 mg tablet Take 1 tablet by mouth once daily as needed. multivit-min/FA/lycopen/lutein (CENTRUM SILVER MEN ORAL) Take by mouth as directed. aspirin, enteric coated (ADULT LOW DOSE ASPIRIN) 81 mg EC tablet Take 1 tablet by mouth once daily. CLOBETASOL 0.05 % TOPICAL CREAM as directed for psoriases IBUPROFEN 200 MG TAB Take 1tablet daily as needed. Metronidazole (METROGEL) 1 % TOPICAL Gel as directed No current facility-administered medications on file prior to visit. Social History Social History Tobacco Use Smoking status: Former Current packs/day: 0.00 Average packs/day: 1 pack/day for 15.0 years (15.0 ttl pk-yrs) Types: Cigarettes Start date: 07/11/1975 Quit date: 07/11/1990 Years since quittin.6 Smokeless tobacco: Never Vaping Use Vaping status: Never Used Substance Use Topics Alcohol use: Yes Comment: very little Drug use: No Review of Symptoms REVIEW OF SYSTEMS GENERAL: No weight loss, malaise or fevers HEENT: Negative for frequent or significant headaches, No changes in hearing no nose bleeds or other nasal problems. While onj vacation her was getting some visual changes and is following with optho. NECK: Negative for lumps, goiter, pain and significant neck swelling RESPIRATORY: Negative for cough, hemoptysis, wheezing, COPD, dyspnea or shortness of breath CARDIOVASCULAR: Negative for chest pain, hypertension, CHF or palpitations. Slight swelling in the left ankle. GI: No nausea, vomiting, or diarrhea, No frequent heartburn or reflux symptoms, and no blood : No history of dysuria, frequency or blood. MUSCULOSKELETAL: Negative for joint pain or swelling, back pain or muscle pain SKIN: Negative for rash, and itching. Has a lesion on the right thigh for the past year. PSYCH: Negative for sleep disturbance, mood disorder and recent psychosocial stressors HEMATOLOGY/LYMPHOLOGY: Negative for prolonged bleeding, bruising easily or swollen nodes ENDOCRINE: Negative for cold or heat intolerance, polyuria, polydipsia and goiter NEURO: No history of headaches, syncope, paralysis, seizures or tremors EXAM: BP 140/82 (BP Site: Left Arm, BP Position: Sitting, BP Cuff Size: Large Adult) Pulse 80 Resp 16 Ht 176.5 cm (5' 9.5 ) Wt 96.2 kg (212 lb) BMI 30.86 kg/m BP 144/78 Pulse 80 Resp 16 Ht 176.5 cm (5' 9.5 ) Wt 96.2 kg (212 lb) BMI 30.86 kg/m Last 4 Encounter Wt Readings: Date: Wt: 03/13/2024 96.2 kg (212 lb) 03/10/2023 94.8 kg (209 lb) 03/09/2022 97.1 kg (214 lb) 03/06/2021 94.3 kg (208 lb) General Appearance: Well appearing, alert, in no acute distress, well-hydrated, well nourished.. Skin: Skin color, texture, turgor normal, no suspicious rashes or lesions. Mendes a atypical appearing lesson right anterior thigh Head: Normocephalic, no masses, lesions, tenderness or abnormalities. Eyes: Anicteric sclera. Pupils are equally round and reactive to light. Extraocular movements are intact. . Ears: External ears, TM's normal, canals clear. Nose/Sinuses: Nares normal, septum midline, mucosa normal, no drainage or sinus tenderness. Oropharynx: Lips, mucosa, and tongue normal, teeth and gums normal, oropharynx normal. Neck: Supple, no adenopathy; thyroid symmetric, normal size, no bruits. Lungs: Lungs clear to auscultation. No wheezing, rhonchi, rales.. Heart: RRR without murmur, gallop, or rubs. No ectopy. Abdomen: Normal abdominal exam, Abdomen soft, non-tender. Bowel sounds normal. No masses, organomegaly. Mendes a soft incisional hernia left/superior to the umbilicus. Extremities: No deformities, edema, skin discoloration, Good capillary refill. . Musculoskeletal: Muscular strength intact, No joint swelling, deformity, or tenderness. Peripheral Pulses: Normal. Neurologic: Gait normal. Reflexes normal and symmetric. Sensation to light touch and crainal nerves 2-12 intact.. Genitalia: Normal, Penis normal. No urethral discharge. Scrotum normal to palpation. No hernia.. Health Maintenance List Depression Screening Never done Anxiety Screening Never done Advance Directive Discussion due on 07/11/2023 Annual PCP Team Chronic Disease Visit due on 03/10/2024 BP Controlled (<130/80) due on 03/10/2024 Covid-19 Vaccine(2022- season) due on 03/11/2024 Influenza Vaccine(1) due on 03/11/2024 Diabetes Screening due on 03/02/2027 DTaP,Tdap,Td Vaccine(4 - Td or Tdap) due on 12/31/2032 RSV Vaccine Completed Hepatitis C Screening Completed Pneumococcal Vaccine: 65+ Completed HPV Vaccine Aged Out Colorectal Cancer Screening Discontinued Shingrix Vaccine Discontinued Data reviewed Latest Ref Rng 03/10/2023 03/02/2024 Color Yellow Light Yellow Yellow Clarity Clear Clear Clear Glucose, Urine Negative Negative Negative Bilirubin, Urine Negative Negative Negative Ketones, Urine Negative Negative Negative Specific [place], Ur 1.005 - 1.030 1.021 1.020 Hemoglobin/Blood,Ur Negative Negative Negative pH, Urine <8.5 6.0 5.5 Protein, Urine Negative Negative Negative Urobilinogen 0.2-1.0 EU/dL Negative 0.2 EU/dL Nitrites Negative Negative Negative Leukest Negative Negative Negative WBC, Urine 0-5 /HPF 0-5 /HPF 0-5 /HPF RBC, Urine 0-2 /HPF 0-3 /HPF 0-2 /HPF Bacteria Negative /HPF Negative Epithelial Cells /HPF Few None Seen Hyaline Cast 0 /LPF 0 /LPF Protein, Total 6.3 - 8.0 g/dL 7.5 7.2 Albumin 3.9 - 4.9 g/dL 4.4 4.3 Calcium 8.5 - 10.2 mg/dL 10.1 9.6 Bilirubin, Total 0.2 - 1.3 mg/dL 0.7 0.4 Alkaline Phosphatase 38 - 113 U/L 60 80 AST 14 - 40 U/L 27 42 (H) ALT 10 - 54 U/L 35 53 Glucose 74 - 99 mg/dL 109 (H) 102 (H) BUN 9 - 24 mg/dL 20 20 Creatinine 0.73 - 1.22 mg/dL 0.96 0.96 Sodium 136 - 144 mmol/L 143 142 Potassium 3.7 - 5.1 mmol/L 4.9 5.3 (H) Chloride 98 - 107 mmol/L 107 (H) 107 CO2 22 - 30 mmol/L 24 25 Anion Gap 8 - 15 mmol/L 12 10 eGFR >=60 mL/min/1.73m 82 82 Total Cholesterol, Nonfasting <200 mg/dL 176 184 Triglycerides, Nonfasting <150 mg/dL 161 (H) 121 HDL Cholesterol, Nonfasting >39 mg/dL 38 (L) 45 LDL Cholesterol, Nonfasting <100 mg/dL 106 (H) 115 (H) Non HDL Cholesterol, Nonfasting <130 mg/dL 138 (H) 139 (H) VLDL Cholesterol, Nonfasting <30 mg/dL 32 (H) 24 Total Chol/HDL Ratio, Nonfasting <5.10 mg/dL 4.63 4.09 LDL/HDL Ratio, Nonfasting <2.54 mg/dL 2.79 (H) 2.56 (H) Hemoglobin A1C 4.3 - 5.6 % 5.3 5.4 Estimated Average Glucose mg/dL 105 108 Vitamin D 25 Hydroxy 31.0 - 80.0 ng/mL 37.5 34.2 Legend: (H) High (L) Low A/P ASSESSMENT/PLAN: 1. Medicare annual wellness visit, subsequent - ICD9: V70.0, ICD10: Z00.00 (primary diagnosis) - Counseled on healthy diet and regular exercise - Discussed need for and benefit of weight loss. BMI 30.86 kg/(m^2) - Follow up for annual exam in one year 2. Essential hypertension, benign - ICD9: 401.1, ICD10: I10 - Uncontrolled - Continue current medications - Recommend home blood pressure monitoring, to bring results to next visit - Encouraged sodium restriction, DASH or Mediterranean diet - Recommend regular aerobic exercise - patient to send in Home BP's for the next few days. 3. Hyperlipidemia, mixed - ICD9: 272.2, ICD10: E78.2 - Controlled - Counseled on healthy diet and regular exercise - Discussed need for and benefit of weight loss. BMI 30.86 kg/(m^2) 4. Elevated blood sugar - ICD9: 790.29, ICD10: R73.9 - controled with life style changes. 5. Gastroesophageal reflux disease without esophagitis - ICD9: 530.81, ICD10: K21.9 - Continue treatment with Pepcid 20 mg QD 6. Vitamin D deficiency - ICD9: 268.9, ICD10: E55.9 - recent lab was normal. 7. Prostate cancer (HCC) - ICD9: 185, ICD10: C61 - s/p prostatectomy and f/u per urology 8. Benign prostatic hyperplasia without lower urinary tract symptoms - ICD9: 600.00, ICD10: N40.0 - managed per urology 9. 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 Patient wants to discuss with Derm. 10. Incisional hernia, without obstruction or gangrene - ICD9: 553.21, ICD10: K43.2 - discussed monitoring or referral to Gen Syrgery. Patient without symptoms and prefers the former. 11. Encounter for screening examination for other mental health and behavioral disorders - ICD9: V79.8, ICD10: Z13.39 - ANXIETY SCREENING 12. Advance directive discussed with patient - ICD9: V65.49, ICD10: Z71.89 - up to date. 13. Screening for depression - ICD9: V79.0, ICD10: Z13.31 - DEPRESSION SCREENING 4. Elevated LFTs - ICD9: 790.6, ICD10: R79.89 Recheck - COMPREHENSIVE METABOLIC PANEL 15. Hyperkalemia - ICD9: 276.7, ICD10: E87.5 recheck - COMPREHENSIVE METABOLIC PANEL F/u in a year or sooner if issues. I spent a total of 40 minutes on the date of the service which included preparing to see the patient, [id number] patient care, completing clinical documentation, performing a medically appropriate examination, counseling and educating the patient/family/caregiver and ordering medications, tests, or procedures. Juan A Scanlon MD documented in this encounter [facility] 03-13-2024 Note HNO ID: [id number] Author: JUAN A SCANLON MD Service: ? Author Type: Physician Type: Progress Notes Filed: 03/13/2024 14:49 Note Text: Girma Crisostomo is a 78 year old male here for a Medicare wellness visit. Medicare Health Risk Assessment General Health Exercise: Minutes/Day Exercise: Days/Week Alcohol: Daily Use Alcohol: Drinks/Day Alcohol: 6 or more drinks Feel off balance No Concerns: Teeth/Dentures No Concerns: Sexual function Troubled by feelings None of the above Frequency: Eating healthy diet More than half the days ADLs requiring help Safety precautions in home/vehicle Yes Smoke, vape, chews tobacco No Difficulty hearing No Difficulty seeing No Current Providers Medical/Family history review Reviewed and updated problem list, medical/surgical/family/social history, medications, and allergies. Opioid use review Opioid Medications (last 90 days) No data to display Anxiety/Depression screening PHQ-2 Score: 0 (Lower risk for depression) Recommendation: no further intervention at this time Cognitive screening Score:5 Cognitive screening reviewed and No further action needed (score 3-5). Functional Observation Was the patient's Timed Up AND Go test unsteady or ? 12 seconds? No Advance Care Planning Surrogate decision maker documented and/or advance directives scanned in chart Measurements BP 140/82 (BP Site: Left Arm, BP Position: Sitting, BP Cuff Size: Large Adult) Pulse 80 Resp 16 Ht 176.5 cm (5' 9.5 ) Wt 96.2 kg (212 lb) BMI 30.86 kg/m? Vision Screening: Follows with optometry/ophthalmology Assessment/Plan Medicare annual wellness visit, subsequent (Z00.00) - Counseled on healthy diet and regular exercise - Fall avoidance information provided - Personalized prevention plan provided See Below Chief Complaint Patient presents with: Medicare Wellness Exam HPI Girma Crisostomo is a 78 year old male who presents here today for Chronic Medical Conditions. and Medicare Annual Visit. Patient with hx of HTN, hyperlipidemia, GERD, Vit D def, varicose veins, BPH, elevated PSA seeing Urology, psoriasis seeing Derm, Hx of subdural hematoma as well as those reviewed and addressed below and in ROS. Patient sees Dr Swan - last visit 10/2023 Past medical history, appointments, medications, allergies reviewed. Previous Medical History PAST MEDICAL HISTORY 03/09/2022: Advance directive discussed with patient Comment: Discussed 02/202203/06/2021: Advance directive on file 03/09/2022: Arthritis of right knee Comment[facility]: Asymptomatic varicose veins of left lower extremity 12/11/2014: BPH (benign prostatic hyperplasia) 03/10/2023: Elevated blood sugar 03/06/2021: Elevated PSA Comment: Seeing Urology 01/21/2010: Essential hypertension, benign 03/09/2022: Ex-smoker 09/23/2015: Gastroesophageal reflux disease 09/23/2015: History of subdural hematoma Comment: old, R supratentorial. Noted on Brain MRI in 201409/23/2015: Hyperlipidemia, mixed 03/06/2021: Medicare annual wellness visit, subsequent Comment: Medical B eligibilty date 11/08/13 Date of last exam 03/09/2022 03/06/2021: Prostate cancer (HCC) Comment: Seeing Urology, Dr. Swan and [facility], S/P prostatectomy 06/08/2023 No date: Psoriasis 11/16/2016: Rectus diastasis 03/09/2022: Rosacea 08/19/2014: Vitamin D deficiency Previous Surgical History PAST SURGICAL HISTORY 10/17/2014: COLONOSCOPY FLX DX W/COLLJ SPEC WHEN PFRMD Comment: Colonoscopy 10/17/2014: ESOPHAGOGASTRODUODENOSCOPY TRANSORAL DIAGNOSTIC Comment: EGD 06/05/2007: EXCISION HYDROCELE UNILATERAL Comment: right 06/05/2007: LAPS SURG RPR RECURRENT INGUINAL HERNIA Comment: right No date: PAST SURGICAL HISTORY OF Comment: repair left ankle laceration No date: PAST SURGICAL HISTORY OF Comment: achilles tendon surgery to repair tear No date: RPR 1ST INGUN HRNA AGE 7 YRS/> REDUCIBLE Comment: Hernia repair, inguinal,left No date: RPR 1ST INGUN HRNA AGE 7 YRS/> REDUCIBLE Comment: Hernia repair, inguinal,right 06/05/2007: RPR UMBILICAL HRNA 5 YRS/> REDUCIBLE 06/08/2023: TRANSURETHRAL ELEC-SURG PROSTATECTOM Comment: Dr. Swan Family History FAMILY HISTORY Problem Relation Age of Onset other (dementia) Father Hypertension Mother other (dementia) Mother other (basal cell cancer) Mother other (obesity) Brother Patient Allergies ALLERGIES Allergen Reactions Lisinopril Cough Current Medications Current Outpatient Medications on File Prior to Visit Medication Sig losartan (COZAAR) 25 mg tablet Take 1 tablet by mouth once daily. famotidine (PEPCID) 20 mg tablet Take 1 tablet by mouth once daily. Tadalafil (CIALIS) 20 mg tablet Take 1 tablet by mouth once daily as needed. multivit-min/FA/lycopen/lutein (CENTRUM SILVER MEN ORAL) Take by mouth as directed. aspirin, enteric coated (ADULT LOW DOSE ASPIRIN) 81 mg EC tablet Take 1 tablet by mouth on (more content not included)... [facility] 02-29-2024 Telephone encounter Note Spoke with patient and he wanted done here at our office. Patient notified orders are ready. Rios Austin MA [facility] 02-29-2024 Miscellaneous Notes Spoke with patient and he wanted done here at our office. Patient notified orders are ready. Rios Austin MA Labs ready to be faxed. Patient asking if he needs lab work done prior to his Wellness visit on 03/13. If so he would like the orders faxed to the [place]. Please advise. documented in this encounter [facility] 02-29-2024 Telephone encounter Note Labs ready to be faxed. [facility] 02-29-2024 Telephone encounter Note Patient asking if he needs lab work done prior to his Wellness visit on 03/13. If so [facility] would [facility] Please advise. [facility] 11-08-2023 Note HNO ID: [id number] Author: RIOS AUSTIN MA Service: ? Author Type: State Attorney Type: Progress Notes Filed: 11/08/2023 13:46 Note Text: Scan on 11/03/2023 4:44 PM by Ashley Fernandez PA-C: Consultation - PERI Austin MA [facility] 11-08-2023 History of Present illness Narrative Scan on 11/03/2023 4:44 PM by Ashley Fernandez PA-C: Consultation - PERI Austin MA documented in this encounter [facility] 10-28-2023 Note HNO ID: [id number] Author: SOHEILA ZURITA LPN Service: ? Author Type: LICENSED NURSE Type: Progress Notes Filed: 10/28/2023 12:27 Note Text: Scan on 10/28/2023 9:34 AM by Ashley Fernandez PA-C: Miscellaneous Lab Soheila Zurita LPN [facility] 10-28-2023 History of Present illness Narrative Scan on 10/28/2023 9:34 AM by Ashley Fernandez PA-C: Miscellaneous Lab Soheila Zurita LPN documented in this encounter [facility] 10-26-2023 Note HNO ID: [id number] Author: RIOS AUSTIN MA Service: ? Author Type: State Attorney Type: Progress Notes Filed: 10/26/2023 16:13 Note Text: Scan on 10/26/2023 9:34 AM by Ashley Fernandez PA-C: Ray Austin MA [facility] 10-26-2023 History of Present illness Narrative Scan on 10/26/2023 9:34 AM by Ashley Fernandez PA-C: Chemistry Rios Austin MA documented in this encounter [facility] 08-02-2023 Note HNO ID: [id number] Author: SARAH ELIZABETH LPN Service: ? Author Type: LICENSED NURSE Type: Progress Notes Filed: 08/02/2023 14:39 Note Text: Scan on 08/02/2023 1:59 PM by Ashley Fernandez PA-C: Consultation - [facility] 07-27-2023 Note HNO ID: [id number] Author: SARAH ELIZABETH LPN Service: ? Author Type: LICENSED NURSE Type: Progress Notes Filed: 07/27/2023 11:25 Note Text: Scan on 07/27/2023 9:18 AM by Ashley Fernandez PA-C: Chemistry [facility] 06-22-2023 Note HNO ID: [id number] Author: Mallika Olivarez LPN Service: ? Author Type: ? Type: Progress Notes Filed: 06/22/2023 1:26 PM Note Text: Scan on 06/21/2023 3:21 PM by Ashley Fernandez PA-C: Consultation - [facility] 06-22-2023 History of Present illness Narrative Scan on 06/21/2023 3:21 PM by Ashley Fernandez PA-C: Consultation - documented in this encounter [facility] 06-08-2023 Note HNO ID: [id number] Author: Sarah Elizabeth LPN Service: ? Author Type: ? Type: Progress Notes Filed: 06/08/2023 1:08 PM Note Text: Scan on 06/08/2023 7:34 AM by Ashley Fernandez PA-C [facility] 06-01-2023 Note HNO ID: [id number] Author: Sarah Elizabeth LPN Service: ? Author Type: ? Type: Progress Notes Filed: 06/01/2023 12:49 PM Note Text: Scan on 05/31/2023 7:34 AM by ProviderAshley PA-C: Hematology [facility] 06-01-2023 History of Present illness Narrative Scan on 05/31/2023 7:34 AM by ProviderAshley PA-C: Hematology documented in this encounter [facility] 03-15-2023 Miscellaneous Notes Pt notified. Pt will think about this and call back if interested. Leilani Bhatia Ma Let patient know the mas on the shoulder is not of a bony origin and is soft tissue. I can send him to plastics in [place] for removal if interested? documented in this encounter [facility] 03-11-2023 Miscellaneous Notes Pt notified. Copy of results mailed to pt home. Leilani Bhatia Ma Let patient know his electrolytes, kidney functions, liver functions, UA, Vit D were all ok. Lipid panel showed Trigs elevated at 161 (goal<150), HDL low at 38 (goal>40) and LDL ok at 106> advise working on diet with reduced fat and increased walking for exercise. Let him know a copy of his labs will be mailed to [facility]. documented in this encounter [facility] 03-10-2023 History of Present illness Narrative Medicare Yearly Visit Medical B eligibilty date 11/08/13 Date of last exam 03/09/2022 PAST MEDICAL HISTORY PAST MEDICAL HISTORY Diagnosis Date GERD (gastroesophageal reflux disease) Hypertension Psoriasis Subdural hematoma (HCC) 09/23/2015 old, R supratentorial Vitamin D deficiency 08/19/2014 PAST SURGICAL HISTORY PAST SURGICAL HISTORY Procedure Laterality Date COLONOSCOP W/ OR W/O BRSH SPEC 10/17/2014 Colonoscopy EGD W/O OR W/BRUSH/WASH 10/17/2014 EGD LAP HERNIA REPAIR RECURRENT-JOSEF 06/05/07 right PAST SURGICAL HISTORY OF repair left ankle laceration PAST SURGICAL HISTORY OF achilles tendon surgery to repair tear REMOVAL OF HYDROCELE,TUNICA,UNILAT 06/05/07 right REPAIR ING HERNIA,5+Y/O,REDUCIBL Hernia repair, inguinal,left REPAIR ING HERNIA,5+Y/O,REDUCIBL Hernia repair, inguinal,right REPAIR UMBILICAL RAJI,5+Y/O,REDUC 06/05/07 ALLERGIES: Lisinopril Medications reviewed: Yes FAMILY HISTORY FAMILY HISTORY Problem Relation Age of Onset other (dementia) Father Hypertension Mother other (dementia) Mother other (basal cell cancer) Mother other (obesity) Brother SOCIAL HISTORY: SOCIAL HISTORY Social History Tobacco Use Smoking status: Former Smoker Packs/day: 1.00 Years: 15.00 Pack years: 15.00 Smokeless tobacco: Former User Quit date: 07/11/1990 Substance Use Topics Alcohol use: Yes Comment: very little Drug use: No Girma likes to exercise by walking and staying active. He watches his diet for sodium, low fat and low cholesterol some of the time. List of current specialists seen: Dr. Swan. (Urology) [facility] (derm) [place] provider End of Live Planning discussed including patients advanced directive wishes: Yes I am willing to follow Girma's advanced directives. PHQ-2 / Depression screen Depression Screening 03/05/2021 03/09/2022 03/03/2023 03/10/2023 PHQ-2 Score 0 0 0 0 PHQ-9 Score - - 0 - Depression screening tool completed and reviewed. Based on score and interview, patient is not at risk for depression. Screening tool discussed with patient, and I recommended no further intervention at this time. Functional Ability/Safety Screen 1. Was the patient's timed Up and Go test unsteady or longer than 30 seconds? No 2. Does the patient need help with the phone, transportation, shopping,preparing meals, housework, laundry, medications or managing money? No 3. Does your home have rugs in the hallway, lack of grab bars in the bathroom, lack of handrails on the stairs or have poor lighting? No Hearing Evaluation: normal PHYSICAL EXAM BP 140/80 (BP Site: Left Arm, BP Position: Sitting, BP Cuff Size: Regular Adult) Pulse 64 Resp 16 Ht 175.9 cm (5' 9.25 ) Wt 94.8 kg (209 lb) BMI 30.64 kg/m Alert and oriented X 3: YES Body mass index is 30.64 kg/m . Visual acuity: sees opto ASSESSMENT/PLAN: 77 year old male The following prevention plan was discussed during the office visit and provided to the patient: See below. Chief Complaint Patient presents with: Medicare Wellness Exam HPI Girma Crisostomo is a 77 year old male who presents here today for Chronic Medical Conditions. and Medicare Annual Visit. Office visit - medicare wellness 03/09/2023 Patient with hx of HTN, hyperlipidemia, GERD, Vit D def, varicose veins, BPH, elevated PSA seeing Urology, psoriasis seeing Derm, Hx of subdural hematoma as well as those reviewed and addressed below and in ROS. Patient has been doing well. No issues or concerns. Continues to follow with Urology and Derm Office visit - medicare wellness 03/09/2023 Patient with hx of HTN, hyperlipidemia, GERD, Vit D def, varicose veins, BPH, elevated PSA seeing Urology, psoriasis seeing Derm, Hx of subdural hematoma as well as those reviewed and addressed below and in ROS. Patient has been doing well. No issues or concerns. BP's at home run 142/77 yesterday. Past medical history, appointments, medications, allergies reviewed. Previous Medical History PAST MEDICAL HISTORY Diagnosis Date Advance directive discussed with patient 03/09/2022 Discussed 02/2022 Advance directive on file 03/06/2021 Arthritis of right knee 03/09/2022 [facility] Asymptomatic varicose veins of left lower extremity 11/16/2016 BPH (benign prostatic hyperplasia) 12/11/2014 Elevated PSA 03/06/2021 Seeing Urology Essential hypertension, benign 01/21/2010 Ex-smoker 03/09/2022 Gastroesophageal reflux disease 09/23/2015 History of subdural hematoma 09/23/2015 old, R supratentorial. Noted on Brain MRI in 2014 Hyperlipidemia, mixed 09/23/2015 Medicare annual wellness visit, subsequent 03/06/2021 Medical B eligibilty date 11/08/13 Date of last exam 03/09/2022 Psoriasis Rectus diastasis 11/16/2016 Rosacea 03/09/2022 Vitamin D deficiency 08/19/2014 Previous Surgical History PAST SURGICAL HISTORY Procedure Laterality Date COLONOSCOPY FLX DX W/COLLJ SPEC WHEN PFRMD 10/17/2014 Colonoscopy ESOPHAGOGASTRODUODENOSCOPY TRANSORAL DIAGNOSTIC 10/17/2014 EGD EXCISION HYDROCELE UNILATERAL 06/05/07 right LAPS SURG RPR RECURRENT INGUINAL HERNIA 06/05/07 right PAST SURGICAL HISTORY OF repair left ankle laceration PAST SURGICAL HISTORY OF achilles tendon surgery to repair tear RPR 1ST INGUN HRNA AGE 7 YRS/> REDUCIBLE Hernia repair, inguinal,left RPR 1ST INGUN HRNA AGE 5 YRS/> REDUCIBLE Hernia repair, inguinal,right RPR UMBILICAL HRNA 5 YRS/> REDUCIBLE 06/05/07 Family History FAMILY HISTORY Problem Relation Age of Onset other (dementia) Father Hypertension Mother other (dementia) Mother other (basal cell cancer) Mother other (obesity) Brother Patient Allergies ALLERGIES Allergen Reactions Lisinopril Cough Current Medications Current Outpatient Medications on File Prior to Visit Medication Sig multivit-min/FA/lycopen/lutein (CENTRUM SILVER MEN ORAL) Take by mouth as directed. losartan (COZAAR) 25 mg tablet Take 1 tablet by mouth once daily. famotidine (PEPCID) 20 mg tablet Take 20 mg by mouth once daily. aspirin, enteric coated (ADULT LOW DOSE ASPIRIN) 81 mg EC tablet Take 1 tablet by mouth once daily. CLOBETASOL 0.05 % TOPICAL CREAM as directed for psoriases IBUPROFEN 200 MG TAB Take 1tablet daily as needed. Metronidazole (METROGEL) 1 % TOPICAL Gel as directed doxycycline monohydrate (MONODOX) 100 mg capsule Take 100 mg by mouth once daily. No current facility-administered medications on file prior to visit. Social History Social History Tobacco Use Smoking status: Former Packs/day: 1.00 Years: 15.00 Additional pack years: 0.00 Total pack years: 15.00 Types: Cigarettes Quit date: 07/11/1990 Years since quittin.6 Smokeless tobacco: Never Vaping Use Vaping Use: Never used Substance Use Topics Alcohol use: Yes Comment: very little Drug use: No Review of Symptoms REVIEW OF SYSTEMS GENERAL: No weight loss, malaise or fevers HEENT: Negative for frequent or significant headaches, No changes in hearing or vision, no nose bleeds or other nasal problems NECK: Negative for lumps, goiter, pain and significant neck swelling RESPIRATORY: Negative for cough, hemoptysis, wheezing, COPD, dyspnea or shortness of breath CARDIOVASCULAR: Negative for chest pain, leg swelling, hypertension, CHF or palpitations GI: No nausea, vomiting, or diarrhea, No heartburn or reflux symptoms, and no blood : No history of dysuria, frequency or blood MUSCULOSKELETAL: still with lump on the right lateral shoulder. Has knee pain and seeing [facility]. SKIN: Negative for new lesions, rash, and itching PSYCH: Negative for sleep disturbance, mood disorder and recent psychosocial stressors HEMATOLOGY/LYMPHOLOGY: Negative for prolonged bleeding, bruising easily or swollen nodes ENDOCRINE: Negative for cold or heat intolerance, polyuria, polydipsia and goiter NEURO: No history of headaches, syncope, paralysis, seizures or tremors EXAM: BP 140/80 (BP Site: Left Arm, BP Position: Sitting, BP Cuff Size: Regular Adult) Pulse 64 Resp 16 Ht 175.9 cm (5' 9.25 ) Wt 94.8 kg (209 lb) BMI 30.64 kg/m BP 137/72 Pulse 64 Resp 16 Ht 175.9 cm (5' 9.25 ) Wt 94.8 kg (209 lb) BMI 30.64 kg/m Last 5 Encounter Wt Readings: Date: Wt: 03/10/2023 94.8 kg (209 lb) 03/09/2022 97.1 kg (214 lb) 03/06/2021 94.3 kg (208 lb) 12/05/2020 97.1 kg (214 lb) 02/25/2020 94.3 kg (208 lb) General Appearance: Well appearing, alert, in no acute distress, well-hydrated, well nourished. and Overweight. Skin: Skin color, texture, turgor normal, no suspicious rashes or lesions. Has a mass in the right lateral shoulder region that is firm and non-tender. Not able to move. Head: Normocephalic, no masses, lesions, tenderness or abnormalities. Eyes: Anicteric sclera. Pupils are equally round and reactive to light. Extraocular movements are intact. . Ears: External ears, TM s normal, canals clear. Nose/Sinuses: Nares normal, septum midline, mucosa normal, no drainage or sinus tenderness. Oropharynx: Lips, mucosa, and tongue normal, teeth and gums normal, oropharynx normal. Neck: Supple, no adenopathy; thyroid symmetric, normal size, no bruits. Lungs: Lungs clear to auscultation. No wheezing, rhonchi, rales.. Heart: RRR without murmur, gallop, or rubs. No ectopy. Abdomen: Normal abdominal exam, Abdomen soft, non-tender. Bowel sounds normal. No masses, organomegaly. Extremities: No edema, skin discoloration. Good capillary refill. See skin section. Musculoskeletal: Muscular strength intact, No joint swelling, deformity, or tenderness. Peripheral Pulses: Normal. Neurologic: Gait normal. Reflexes normal and symmetric. Sensation to light touch and crainal nerves 2-12 intact.. Genitalia: Normal, Penis normal. No urethral discharge. Scrotum normal to palpation. No hernia.. Health Maintenance List BP CONTROLLED (<130/80) Never done ADVANCE DIRECTIVE DISCUSSION due on 07/11/2022 DEPRESSION ASSESSMENT Never done COVID-19 VACCINE(5 - Pfizer series) due on 08/22/2022 ANNUAL PCP TEAM CHRONIC DISEASE VISIT due on 03/09/2023 INFLUENZA(1) due on 03/11/2023 COLORECTAL CANCER SCREENING due on 10/17/2024 DIABETES SCREEN due on 09/21/2025 DTAP,TDAP,TD(3 - Td or Tdap) due on 01/26/2027 LIPID SCREEN due on 09/22/2027 HEPATITIS C SCREENING Completed PNEUMOCOCCAL: 65+ Completed SHINGRIX VACCINE Discontinued Data reviewed Component Latest Ref Rng & Units 09/21/2022 WBC 3.4 - 10.8 K/uL 5.3 RBC 4.14 - 5.80 M/uL 4.45 Hemoglobin 12.6 - 17.7 g/dL 14.8 Hematocrit 37.5 - 51.0 % 42.5 MCV 79 - 97 fL 95.5 MCH 26.6 - 33 Pg 33.4 (A) MCHC 31.5 - 35.7 g/dL 34.9 RDW 12.3 - 15.4 % 12.7 Platelet Count 150 - 379 k/uL 182 Neutrophil % % 63.4 Lymphocyte % % 22.0 Monocyte % % 10.4 Eosinophil % % 3.4 Basophil % % 0.8 NEUTROPHILS ABSOLUTE 1.4 - 7.0 k/uL 3.3 LYMPHS ABSOLUTE 0.7 - 3.1 k/uL 1.2 MONOCYTES ABSOLUTE 0.1 - 0.9 k/uL 0.6 EOS ABSOLUTE 0.0 - 0.4 k/uL 0.2 BASO ABSOLUTE 0.0 - 0.2 k/uL 0.0 NA 136 - 145 mmol/L 142 K 3.5 - 5.1 mmol/L 4.3 Chloride 98 - 107 MEQ/L 107 CO2 21 - 32 MEQ/L 27 Glucose 74 - 106 MG/DL 112 (A) BUN 7 - 18 MG/DL 18 Creatinine 0.6 - 1.3 MG/DL 1.1 GFR mL/MIN 70 Total Protein 6.4 - 8.2 gm/dL 7.1 Albumin 3.2 - 4.6 gm/dL 3.9 Calcium 8.5 - 10.1 mg/dL 9.7 Bili Total 0.2 - 1 mg/dL 0.9 AST 8 - 37 U/L 30 ALT (SGPT) 12 - 78 U/L 44 Alk Phos Total 45 - 117 U/L 56 Cholesterol, Total 200 177 Triglyceride 150 171 (A) HDL CHOLESTEROL 40 38 (A) LDL CHOLESTEROL 130 127 A/P ASSESSMENT/PLAN: 1. Medicare annual wellness visit, subsequent - ICD9: V70.0, ICD10: Z00.00 (primary diagnosis) - Counseled on healthy diet and regular exercise - Follow up for annual exam in one year 2. Essential hypertension, benign - ICD9: 401.1, ICD10: I10 - Controlled - Recommend home blood pressure monitoring, to bring results to next visit - Encouraged sodium restriction, DASH or Mediterranean diet - Recommend regular aerobic exercise - patient to monitor BP at home and notify office if running over 140/85 Check - COMP METABOLIC PANEL - URINALYSIS, WITH MICROSCOPIC - LIPID PANEL, NONFASTING 3. Hyperlipidemia, mixed - ICD9: 272.2, ICD10: E78.2 Await labs - Counseled on healthy diet and regular exercise Check - COMP METABOLIC PANEL - URINALYSIS, WITH MICROSCOPIC - LIPID PANEL, NONFASTING 4. Gastroesophageal reflux disease without esophagitis - ICD9: 530.81, ICD10: K21.9 - Continue treatment with Pepcid 20 mg QD 5. Elevated blood sugar - ICD9: 790.29, ICD10: R73.9 Check - HGB A1C 6. Asymptomatic varicose veins of left lower extremity - ICD9: 454.9, ICD10: I83.92 - advised on use of support socks. 7. Vitamin D deficiency - ICD9: 268.9, ICD10: E55.9 Check - VITAMIN D 25 HYDROXY 8. Benign prostatic hyperplasia without lower urinary tract symptoms - ICD9: 600.00, ICD10: N40.0 - management per Urology 9. Advance directive discussed with patient - ICD9: V65.49, ICD10: Z71.89 - up to date 10. Elevated PSA - ICD9: 790.93, ICD10: R97.20 - management per Urology. 11. Mass of shoulder region - ICD9: 719.61, ICD10: R22.30 Check - XR SHOULDER GENERAL 3V OR MORE AP/TRUE AP/OTHER RIGHT F/u in a year for extensive or sooner if needed. I spent a total of 40 minutes on the date of the service which included preparing to see the patient, [id number] patient care, completing clinical documentation, performing a medically appropriate examination, counseling and educating the patient/family/caregiver and ordering medications, tests, or procedures. Juan A Scanlon MD documented in this encounter [facility] 11-11-2022 History of Present illness Narrative Scan on 11/10/2022 6:37 PM by External Provider, VIRI: CT Scan documented in this encounter [facility] 10-18-2022 History of Present illness Narrative Scan on 10/15/2022 9:09 AM by External Provider: Chemistry Scan on 10/16/2022 8:57 AM by External Provider: CT Scan Rios Austin MA documented in this encounter [facility] 03-23-2022 Miscellaneous Notes Patient notified and verbalized understanding Donna Coleman Cma Advise patient if I only take the last five readings into account and not the first one then his avg BP would be 137/81 and I'm ok with that. I would not make any changes at this time. BP 137/81 Manual Readin/86 Pulse: 91 BP Ame average: 140/82 Pulse: 89 Repeat BP Check: 152/86 P87 #1 143/85 P91 #2 137/79 P88 #3 135/82 P91 #4 136/81 P89 #5 134/79 P88 #6 Reason for blood pressure check - Last BP elevated Patient is: Taking medication as prescribed Yes Took medication today Yes Experiencing side effects No Patient here for a blood pressure check as his last blood pressure was elevated 03/09/22 at 160/84. There were no medication changes at that time. Patient is alert and oriented. He denies any chest pain, shortness of breath, or headaches. Has a personal history of tobacco use but no recent exposure. Pt has been identified by name and birthdate: Yes Allergies reviewed: Yes Latex allergy: no. Medication - prescribed and OTC reviewed and updated: Yes Do you need any prescription refills prior to your next visit: No Patient advised that she would be contacted after review by PCP. documented in this encounter [facility] 03-23-2022 History of Present illness Narrative Manual Readin/86 Pulse: 91 BP Ame average: 140/82 Pulse: 89 Repeat BP Check: 152/86 P87 #1 143/85 P91 #2 137/79 P88 #3 135/82 P91 #4 136/81 P89 #5 134/79 P88 #6 Reason for blood pressure check - Last BP elevated Patient is: Taking medication as prescribed Yes Took medication today Yes Experiencing side effects No Patient here for a blood pressure check as his last blood pressure was elevated 03/09/22 at 160/84. There were no medication changes at that time. Patient is alert and oriented. He denies any chest pain, shortness of breath, or headaches. Has a personal history of tobacco use but no recent exposure. Pt has been identified by name and birthdate: Yes Allergies reviewed: Yes Latex allergy: no. Medication - prescribed and OTC reviewed and updated: Yes Do you need any prescription refills prior to your next visit: No Patient advised that she would be contacted after review by PCP. documented in this encounter [facility] 03-16-2022 Miscellaneous Notes Pt notified of same. Advised pt that this nurse faxed everything over to Dr Swan's office and they should contact him to schedule appointment and also provided pt with their office phone number. Sarah Elizabeth LPN Consult placed. Spoke with pt and reviewed all results and instructions. Pt verbalizes understanding. Pt would like a referral to Urology. Pt is wanting to see someone at [facility]. Please let pt know when referral is placed. Sarah Elizabeth LPN ----- Message from Nancy Park PA-C sent at 03/12/2022 12:47 PM EDT ----- US is negative for AAA Let patient know Vit D, electrolytes, kidney functions, liver functions, UA, CBC and lipid panel were all ok. His PSA is increased to 5.49 and his free portion is slightly low at 15%. Options are 1) repeat in a month and see if better or 2) consult to urology. documented in this encounter [facility] 03-12-2022 History of Present illness Narrative Radiology Service Progress Note PATIENT NAME: Girma Crisostomo DATE OF SERVICE: March 12, 2022 TIME: 8:01 AM PATIENT IDENTITY VERIFICATION COMPLETED USING TWO (2) IDENTIFIERS: Name and Date of confirmed by patient verbally. FALL SCREENING: Has the patient had 2 falls in the last year or 1 fall with injury or currently using an Ambulatory Assistive Device (Walker, Cane, Wheelchair, Crutches, etc.)? No PATIENT GENDER DATA: Male PATIENT RELEVANT IMPLANT DATA REVIEWED: Not Applicable RADIOLOGY DEPARTMENT: Ultrasound PERIPHERAL IV DATA: Not applicable SIGNED BY: RT Jame(Smith) March 12, 2022 8:01 AM documented in this encounter [facility] 03-09-2022 Nurse Note VISUAL ACUITY: Today's exam: Vision Correction? No vision correction: RIGHT EYE: 20/25 LEFT EYE: 20/ 20 BOTH EYES: 20/15 documented in this encounter [facility] 03-09-2022 History of Present illness Narrative Medicare Yearly Visit Medical B eligibilty date 11/08/13 Date of last exam 03/06/2022 PAST MEDICAL HISTORY PAST MEDICAL HISTORY Diagnosis Date GERD (gastroesophageal reflux disease) Hypertension Psoriasis Subdural hematoma (HCC) 09/23/2015 old, R supratentorial Vitamin D deficiency 08/19/2014 PAST SURGICAL HISTORY PAST SURGICAL HISTORY Procedure Laterality Date COLONOSCOP W/ OR W/O BRSH SPEC 10/17/2014 Colonoscopy EGD W/O OR W/BRUSH/WASH 10/17/2014 EGD LAP HERNIA REPAIR RECURRENT-JOSEF 06/05/07 right PAST SURGICAL HISTORY OF repair left ankle laceration PAST SURGICAL HISTORY OF achilles tendon surgery to repair tear REMOVAL OF HYDROCELE,TUNICA,UNILAT 06/05/07 right REPAIR ING HERNIA,5+Y/O,REDUCIBL Hernia repair, inguinal,left REPAIR ING HERNIA,5+Y/O,REDUCIBL Hernia repair, inguinal,right REPAIR UMBILICAL RAJI,5+Y/O,REDUC 06/05/07 ALLERGIES: Lisinopril Medications reviewed: Yes FAMILY HISTORY FAMILY HISTORY Problem Relation Age of Onset other (dementia) Father Hypertension Mother other (dementia) Mother other (basal cell cancer) Mother other (obesity) Brother SOCIAL HISTORY: SOCIAL HISTORY Social History Tobacco Use Smoking status: Former Smoker Packs/day: 1.00 Years: 15.00 Pack years: 15.00 Smokeless tobacco: Former User Quit date: 07/11/1990 Substance Use Topics Alcohol use: Yes Comment: very little Drug use: No Girma likes to exercise by walking and staying active. He watches his diet for sodium, low fat and low cholesterol some of the time. List of current specialists seen: Aisha (Urology) Jessica Blankenship (derm) [place] provider End of Live Planning discussed including patients advanced directive wishes: Yes I am willing to follow Girma's advanced directives. PHQ-2 / Depression screen Depression Screening 09/30/2017 10/02/2018 03/05/2021 03/09/2022 PHQ-2 Score 0 0 0 0 Depression screening tool completed and reviewed. Based on score and interview, patient is not at risk for depression. Screening tool discussed with patient, and I recommended no further intervention at this time. Functional Ability/Safety Screen 1. Was the patient's timed Up and Go test unsteady or longer than 30 seconds? No 2. Does the patient need help with the phone, transportation, shopping,preparing meals, housework, laundry, medications or managing money? No 3. Does your home have rugs in the hallway, lack of grab bars in the bathroom, lack of handrails on the stairs or have poor lighting? No Hearing Evaluation: normal PHYSICAL EXAM BP 158/90 Pulse 83 Resp 12 Ht 177.5 cm (5' 9.88 ) Wt 97.1 kg (214 lb) SpO2 98% BMI 30.81 kg/m Alert and oriented X 3: YES Body mass index is 30.81 kg/m . Visual acuity: sees opto ASSESSMENT/PLAN: 76 year old male The following prevention plan was discussed during the office visit and provided to the patient: See below. Chief Complaint Patient presents with: Establish Care Medicare Wellness Exam HPI Girma Crisostomo is a 76 year old male who presents here today for extensive Visit. Patient with hx of HTN, hyperlipidemia, GERD, Vit D def, varicose veins, BPH, elevated PSA seeing Urology, psoriasis seeing Derm, Hx of subdural hematoma as well as those reviewed and addressed below and in ROS. Patient has been doing well. No issues or concerns. BP's at home run 142/77 yesterday. Past medical history, appointments, medications, allergies reviewed. Previous Medical History PAST MEDICAL HISTORY Diagnosis Date Essential hypertension, benign 01/21/2010 GERD (gastroesophageal reflux disease) Hyperlipidemia LDL goal <130 09/23/2015 Hypertension Psoriasis Subdural hematoma (HCC) 09/23/2015 old, R supratentorial Vitamin D deficiency 08/19/2014 Previous Surgical History PAST SURGICAL HISTORY Procedure Laterality Date COLONOSCOP W/ OR W/O BRSH SPEC 10/17/2014 Colonoscopy EGD W/O OR W/BRUSH/WASH 10/17/2014 EGD LAP HERNIA REPAIR RECURRENT-JOSEF 06/05/07 right PAST SURGICAL HISTORY OF repair left ankle laceration PAST SURGICAL HISTORY OF achilles tendon surgery to repair tear REMOVAL OF HYDROCELE,TUNICA,UNILAT 06/05/07 right REPAIR ING HERNIA,5+Y/O,REDUCIBL Hernia repair, inguinal,left REPAIR ING HERNIA,5+Y/O,REDUCIBL Hernia repair, inguinal,right REPAIR UMBILICAL RAJI,5+Y/O,REDUC 06/05/07 Family History FAMILY HISTORY Problem Relation Age of Onset other (dementia) Father Hypertension Mother other (dementia) Mother other (basal cell cancer) Mother other (obesity) Brother Patient Allergies ALLERGIES Allergen Reactions Lisinopril Cough Current Medications Current Outpatient Medications on File Prior to Visit Medication Sig doxycycline monohydrate (MONODOX) 100 mg capsule Take 100 mg by mouth once daily. multivit-min/FA/lycopen/lutein (CENTRUM SILVER MEN ORAL) Take by mouth as directed. losartan (COZAAR) 25 mg tablet Take 1 tablet by mouth once daily. famotidine (PEPCID) 20 mg tablet Take 20 mg by mouth once daily. aspirin, enteric coated (ADULT LOW DOSE ASPIRIN) 81 mg EC tablet Take 1 tablet by mouth once daily. CLOBETASOL 0.05 % TOPICAL CREAM as directed for psoriases IBUPROFEN 200 MG TAB Take 1tablet daily as needed. Metronidazole (METROGEL) 1 % TOPICAL Gel as directed No current facility-administered medications on file prior to visit. Social History Social History Tobacco Use Smoking status: Former Packs/day: 1.00 Years: 15.00 Pack years: 15.00 Types: Cigarettes Quit date: 07/11/1990 Years since quittin.6 Smokeless tobacco: Never Vaping Use Vaping Use: Never used Substance Use Topics Alcohol use: Yes Comment: very little Drug use: No Review of Symptoms REVIEW OF SYSTEMS GENERAL: No weight loss, malaise or fevers HEENT: Negative for frequent or significant headaches, No changes in hearing or vision, no nose bleeds or other nasal problems NECK: Negative for lumps, goiter, pain and significant neck swelling RESPIRATORY: Negative for cough, hemoptysis, wheezing, COPD, dyspnea or shortness of breath CARDIOVASCULAR: Negative for chest pain, hypertension, CHF or palpitations GI: No nausea, vomiting, or diarrhea, No frequent heartburn or reflux symptoms, and no blood : No history of dysuria, blood MUSCULOSKELETAL: right knee gets painful at times. [facility] has [facility]ed and shows OA SKIN: Negative for lesions, rash, and itching PSYCH: Negative for sleep disturbance, mood disorder and recent psychosocial stressors HEMATOLOGY/LYMPHOLOGY: Negative for prolonged bleeding, bruising easily or swollen nodes ENDOCRINE: Negative for cold or heat intolerance, polyuria, polydipsia and goiter NEURO: No history of headaches, syncope, paralysis, seizures or tremors EXAM: BP 158/90 Pulse 83 Resp 12 Ht 177.5 cm (5' 9.88 ) Wt 97.1 kg (214 lb) SpO2 98% BMI 30.81 kg/m BP 160/84 Pulse 83 Resp 12 Ht 177.5 cm (5' 9.88 ) Wt 97.1 kg (214 lb) SpO2 98% BMI 30.81 kg/m Last 8 Encounter BP Readings: Date: BP: 03/09/2022 160/84 03/06/2021 122/82[repeat blood pressure[ 12/05/2020 122/68 02/25/2020 138/85 10/02/2018 134/71 09/30/2017 138/85 11/30/2016 114/72[#6 (from Extended Vitals)[ 11/16/2016 114/78 Last 5 Encounter Wt Readings: Date: Wt: 03/09/2022 97.1 kg (214 lb) 03/06/2021 94.3 kg (208 lb) 12/05/2020 97.1 kg (214 lb) 02/25/2020 94.3 kg (208 lb) 10/02/2018 91.2 kg (201 lb) General Appearance: Well appearing, alert, in no acute distress, well-hydrated, well nourished.. Skin: Skin color, texture, turgor normal, no suspicious rashes or lesions. Head: Normocephalic, no masses, lesions, tenderness or abnormalities. Eyes: Anicteric sclera. Pupils are equally round and reactive to light. Extraocular movements are intact. . Ears: External ears, TM's normal, canals clear. Neck: Supple, no adenopathy; thyroid symmetric, normal size, no bruits. Lungs: Lungs clear to auscultation. No wheezing, rhonchi, rales.. Heart: RRR without murmur, gallop, or rubs. No ectopy. Abdomen: Normal abdominal exam, Abdomen soft, non-tender. Bowel sounds normal. No masses, organomegaly. Extremities: No deformities, skin discoloration, . Good capillary refill. Slight edema on the left near the ankle. Has a varicose vein. . Musculoskeletal: Muscular strength intact, No joint swelling, deformity, or tenderness. Peripheral Pulses: Normal. Neurologic: Gait normal. Reflexes normal and symmetric. Sensation grossly intact.. Genitalia: Normal, Penis normal. No urethral discharge. Scrotum normal to palpation. No hernia.. Rectal: prostate enlarged but smooth firm capsule Health Maintenance List ABDOMINAL AORTIC ANEURYSM SCREENING Never done BP CONTROLLED (<130/80) Never done PNEUMOCOCCAL: 65+(1 - PCV) Never done SHINGRIX VACCINE(2 of 3) due on 11/16/2017 COVID-19 VACCINE(3 - Booster for Pfizer series) due on 02/15/2021 ADVANCE DIRECTIVE DISCUSSION Never done DEPRESSION SCREENING due on 03/05/2022 ANNUAL PCP TEAM CHRONIC DISEASE VISIT due on 03/06/2022 INFLUENZA(1) due on 03/11/2022 DIABETES SCREEN due on 10/09/2024 COLORECTAL CANCER SCREENING due on 10/17/2024 LIPID SCREEN due on 10/09/2026 DTAP,TDAP,TD(2 - Td or Tdap) due on 01/26/2027 HEPATITIS C SCREENING Completed Data reviewed A/P ASSESSMENT/PLAN: 1. Medicare annual wellness visit, subsequent - ICD9: V70.0, ICD10: Z00.00 (primary diagnosis) - Counseled on healthy diet and regular exercise - Ultrasound screening for AAA - Follow up for annual exam in one year 2. Essential hypertension, benign - ICD9: 401.1, ICD10: I10 - suboptimal control - Continue current medication(s) - Recommended regular aerobic exercise. - Recommend home blood pressure monitoring, to bring results in on next visit - Recheck in 2 weeks, sooner should new symptoms or problems arise. - Goal of BP <130/80 Check - COMP METABOLIC PANEL - URINALYSIS, WITH MICROSCOPIC - LIPID PANEL, NONFASTING 3. Hyperlipidemia, mixed - ICD9: 272.2, ICD10: E78.2 - to be determined upon return of lab results - Encouraged following a low fat, low cholesterol diet. - Discussed the benefits of regular aerobic exercise and weight loss. - Encouraged following a low carbohydrate, healthy oil intake diet. - Continue current therapy. Check - COMP METABOLIC PANEL - URINALYSIS, WITH MICROSCOPIC - LIPID PANEL, NONFASTING 4. Gastroesophageal reflux disease without esophagitis - ICD9: 530.81, ICD10: K21.9 - Continue treatment with Pepcid 20 mg QD 5. Asymptomatic varicose veins of left lower extremity - ICD9: 454.9, ICD10: I83.92 - discussed slight edema in left ankle related to this. Can wear a support sock if gets worse. 6. Vitamin D deficiency - ICD9: 268.9, ICD10: E55.9 Check - VITAMIN D 25 HYDROXY 7. Benign prostatic hyperplasia without lower urinary tract symptoms - ICD9: 600.00, ICD10: N40.0 - clinically stable 8. Elevated PSA - ICD9: 790.93, ICD10: R97.20 Check - PSA FREE 9. Psoriasis - ICD9: 696.1, ICD10: L40.9 - management per Derm 10. Rosacea - ICD9: 695.3, ICD10: L71.9 - a per #9 11. Arthritis of right knee - ICD9: 716.96, ICD10: M17.11 - seeing [facility] 12. Ex-smoker - ICD9: V15.82, ICD10: Z87.891 Check - US SCREENING FOR AAA 13. Screening for abdominal aortic aneurysm - ICD9: V81.2, ICD10: Z13.6 Check - US SCREENING FOR AAA 14. Advance directive discussed with patient - ICD9: V65.49, ICD10: Z71.89 - on file 15. Medication management - ICD9: V58.69, ICD10: Z79.899 Check - CBC + DIFF F/u padmaja year for extensive exam F/u 2 weeks BP check I spent a total of 40 minutes on the date of the service which included preparing to see the patient, [id number] patient care, completing clinical documentation, performing a medically appropriate examination, counseling and educating the patient/family/caregiver and ordering medications, tests, or procedures. Juan A Scanlon MD documented in this encounter [facility] 10-02-2018 History of Past i llness Narrative Problem Noted Date Resolved Date Skin ulcer of finger, limited to breakdown of sk in 10/02/2018 02/25/2020 Left-sided low back pain with left-sided sciatic a 09/23/2015 09/28/2016 HYDROCELE OTHER SPECIFIC 06/20/2007 017 UMBILICAL HERNIA W/O GANGRENE/OBSTRUCTION 200608/19/2014 INGUINAL HERNIA, UNILAT, RECURRENT W/O GANGRENE/ OBSTRUCTION 03/22/2007 08/19/2014 documented as of this encounter (statuses as of 10/12/2021) [facility] History of Past illness Narrative* Problem Noted Date Resolved Date Skin ulcer of finger, limited to breakdown of sk in 10/02/2018 02/25/2020 Left-sided low back pain with left-sided sciatic a 09/23/2015 09/28/2016 HYDROCELE OTHER SPECIFIC 06/20/2007 017 UMBILICAL HERNIA W/O GANGRENE/OBSTRUCTION 200608/19/2014 INGUINAL HERNIA, UNILAT, RECURRENT W/O GANGRENE/ OBSTRUCTION 03/22/2007 08/19/2014 documented as of this encounter (statuses as of 03/10/2022) [facility] History of Past illness Narrative* Problem Noted Date Resolved Date Skin ulcer of finger, limited to breakdown of sk in 10/02/2018 02/25/2020 Left-sided low back pain with left-sided sciatic a 09/23/2015 09/28/2016 HYDROCELE OTHER SPECIFIC 06/20/2007 017 UMBILICAL HERNIA W/O GANGRENE/OBSTRUCTION 200608/19/2014 INGUINAL HERNIA, UNILAT, RECURRENT W/O GANGRENE/ OBSTRUCTION 03/22/2007 08/19/2014 documented as of this encounter (statuses as of 03/13/2022) [facility] History of Past illness Narrative* Problem Noted Date Resolved Date Skin ulcer of finger, limited to breakdown of sk in 10/02/2018 02/25/2020 Left-sided low back pain with left-sided sciatic a 09/23/2015 09/28/2016 HYDROCELE OTHER SPECIFIC 06/20/2007 017 UMBILICAL HERNIA W/O GANGRENE/OBSTRUCTION 200608/19/2014 INGUINAL HERNIA, UNILAT, RECURRENT W/O GANGRENE/ OBSTRUCTION 03/22/2007 08/19/2014 documented as of this encounter (statuses as of 03/16/2022) [facility] History of Past illness Narrative* Problem Noted Date Resolved Date Skin ulcer of finger, limited to breakdown of sk in 10/02/2018 02/25/2020 Left-sided low back pain with left-sided sciatic a 09/23/2015 09/28/2016 HYDROCELE OTHER SPECIFIC 06/20/2007 017 UMBILICAL HERNIA W/O GANGRENE/OBSTRUCTION 200608/19/2014 INGUINAL HERNIA, UNILAT, RECURRENT W/O GANGRENE/ OBSTRUCTION 03/22/2007 08/19/2014 documented as of this encounter (statuses as of 03/23/2022) [facility] History of Past illness Narrative* Problem Noted Date Resolved Date Skin ulcer of finger, limited to breakdown of sk in 10/02/2018 02/25/2020 Left-sided low back pain with left-sided sciatic a 09/23/2015 09/28/2016 HYDROCELE OTHER SPECIFIC 06/20/2007 017 UMBILICAL HERNIA W/O GANGRENE/OBSTRUCTION 200608/19/2014 INGUINAL HERNIA, UNILAT, RECURRENT W/O GANGRENE/ OBSTRUCTION 03/22/2007 08/19/2014 documented as of this encounter (statuses as of 03/23/2022) [facility] History of Past illness Narrative* Problem Noted Date Resolved Date Skin ulcer of finger, limited to breakdown of sk in 10/02/2018 02/25/2020 Left-sided low back pain with left-sided sciatic a 09/23/2015 09/28/2016 HYDROCELE OTHER SPECIFIC 06/20/2007 017 UMBILICAL HERNIA W/O GANGRENE/OBSTRUCTION 200608/19/2014 INGUINAL HERNIA, UNILAT, RECURRENT W/O GANGRENE/ OBSTRUCTION 03/22/2007 08/19/2014 documented as of this encounter (statuses as of 09/26/2022) [facility] History of Past illness Narrative* Problem Noted Date Resolved Date Skin ulcer of finger, limited to breakdown of sk in 10/02/2018 02/25/2020 Left-sided low back pain with left-sided sciatic a 09/23/2015 09/28/2016 HYDROCELE OTHER SPECIFIC 06/20/2007 017 UMBILICAL HERNIA W/O GANGRENE/OBSTRUCTION 200608/19/2014 INGUINAL HERNIA, UNILAT, RECURRENT W/O GANGRENE/ OBSTRUCTION 03/22/2007 08/19/2014 documented as of this encounter (statuses as of 10/19/2022) [facility] History of Past illness Narrative* Problem Noted Date Resolved Date Skin ulcer of finger, limited to breakdown of sk in 10/02/2018 02/25/2020 Left-sided low back pain with left-sided sciatic a 09/23/2015 09/28/2016 HYDROCELE OTHER SPECIFIC 06/20/2007 017 UMBILICAL HERNIA W/O GANGRENE/OBSTRUCTION 200608/19/2014 INGUINAL HERNIA, UNILAT, RECURRENT W/O GANGRENE/ OBSTRUCTION 03/22/2007 08/19/2014 documented as of this encounter (statuses as of 11/14/2022) [facility] History of Past illness Narrative* Problem Noted Date Diagnosed Date Resolved Date Skin ulcer of finger, limite d to breakdown of skin 10/02/2018 02/25/2020 Left-sided low back pain wit h left-sided sciatica 09/23/2015 09/28/2016 HYDROCELE OTHER SPECIFIC 06/20/200703/2017 UMBILICAL HERNIA W/O GANGRENE/OBSTRUCTION 03/22/2007 08/19/2014 INGUINAL HERNIA, UNILAT, REC URRENT W/O GANGRENE/OBSTRUCTION 03/22/2007 08/19/2014 documented as of this encounter (statuses as of 03/10/2023) [facility] History of Past illness Narrative* Problem Noted Date Diagnosed Date Resolved Date Skin ulcer of finger, limite d to breakdown of skin 10/02/2018 02/25/2020 Left-sided low back pain wit h left-sided sciatica 09/23/2015 09/28/2016 HYDROCELE OTHER SPECIFIC 06/20/200703/2017 UMBILICAL HERNIA W/O GANGRENE/OBSTRUCTION 03/22/2007 08/19/2014 INGUINAL HERNIA, UNILAT, REC URRENT W/O GANGRENE/OBSTRUCTION 03/22/2007 08/19/2014 documented as of this encounter (statuses as of 03/11/2023) [facility] History of Past illness Narrative* Problem Noted Date Diagnosed Date Resolved Date Skin ulcer of finger, limite d to breakdown of skin 10/02/2018 02/25/2020 Left-sided low back pain wit h left-sided sciatica 09/23/2015 09/28/2016 HYDROCELE OTHER SPECIFIC 06/20/200703/2017 UMBILICAL HERNIA W/O GANGRENE/OBSTRUCTION 03/22/2007 08/19/2014 INGUINAL HERNIA, UNILAT, REC URRENT W/O GANGRENE/OBSTRUCTION 03/22/2007 08/19/2014 documented as of this encounter (statuses as of 03/15/2023) [facility] History of Past illness Narrative* Problem Noted Date Diagnosed Date Resolved Date Skin ulcer of finger, limite d to breakdown of skin 10/02/2018 02/25/2020 Left-sided low back pain wit h left-sided sciatica 09/23/2015 09/28/2016 HYDROCELE OTHER SPECIFIC 06/20/200703/2017 UMBILICAL HERNIA W/O GANGRENE/OBSTRUCTION 03/22/2007 08/19/2014 INGUINAL HERNIA, UNILAT, REC URRENT W/O GANGRENE/OBSTRUCTION 03/22/2007 08/19/2014 documented as of this encounter (statuses as of 06/01/2023) [facility] History of Past illness Narrative* Problem Noted Date Diagnosed Date Resolved Date Skin ulcer of finger, limite d to breakdown of skin 10/02/2018 02/25/2020 Left-sided low back pain wit h left-sided sciatica 09/23/2015 09/28/2016 HYDROCELE OTHER SPECIFIC 06/20/200703/2017 UMBILICAL HERNIA W/O GANGRENE/OBSTRUCTION 03/22/2007 08/19/2014 INGUINAL HERNIA, UNILAT, REC URRENT W/O GANGRENE/OBSTRUCTION 03/22/2007 08/19/2014 documented as of this encounter (statuses as of 06/23/2023) [facility] History of Past illness Narrative* Problem Noted Date Diagnosed Date Resolved Date Skin ulcer of finger, limite d to breakdown of skin 10/02/2018 02/25/2020 Left-sided low back pain wit h left-sided sciatica 09/23/2015 09/28/2016 HYDROCELE OTHER SPECIFIC 06/20/200703/2017 UMBILICAL HERNIA W/O GANGRENE/OBSTRUCTION 03/22/2007 08/19/2014 INGUINAL HERNIA, UNILAT, REC URRENT W/O GANGRENE/OBSTRUCTION 03/22/2007 08/19/2014 documented as of this encounter (statuses as of 10/27/2023) [facility] History of Past illness Narrative* Problem Noted Date Diagnosed Date Resolved Date Skin ulcer of finger, limite d to breakdown of skin 10/02/2018 02/25/2020 Left-sided low back pain wit h left-sided sciatica 09/23/2015 09/28/2016 HYDROCELE OTHER SPECIFIC 06/20/200703/2017 UMBILICAL HERNIA W/O GANGRENE/OBSTRUCTION 03/22/2007 08/19/2014 INGUINAL HERNIA, UNILAT, REC URRENT W/O GANGRENE/OBSTRUCTION 03/22/2007 08/19/2014 documented as of this encounter (statuses as of 10/28/2023) [facility] Medicare annual wellness visit, subsequent- Primary Routine general medical examination at [facility] Essential hypertension, benign Hyperlipidemia, mixed Mixed hyperlipidemia Gastroesophageal reflux disease without esophagitis Esophageal reflux Asymptomatic varicose veins of left lower extremity Asymptomatic varicose veins Vitamin D deficiency Unspecified vitamin D deficiency Benign prostatic hyperplasia without lower urinary tract symptoms Elevated PSA Elevated prostate specific antigen (PSA) Psoriasis Other psoriasis Rosacea Arthritis of right knee Unspecified arthropathy, lower leg Ex-smoker Personal history of tobacco use, presenting hazards to health Screening for abdominal aortic aneurysm Screening for other and unspecified cardiovascular conditions Advance directive discussed with patient Other specified counseling Medication management Encounter for long-term (current) use of other medications documented in this encounter [facility] note* Diagnosis Screening for abdominal aortic aneurysm Screening for other and unspecified cardiovascular conditions Ex-smoker Personal history of tobacco use, presenting hazards to health documented in this encounter [facility] note* Diagnosis Elevated PSA- Primary Elevated prostate specific antigen (PSA) [facility] Diagnosis Essential hypertension, benign- Primary documented in this encounter [facility] note* Diagnosis Medicare annual wellness visit, subsequent- Primary Routine general medical examination at a [facility] Essential hypertension, benign Hyperlipidemia, mixed Mixed hyperlipidemia Gastroesophageal reflux disease without esophagitis Esophageal reflux Elevated blood sugar Other abnormal glucose Asymptomatic varicose veins of left lower extremity Asymptomatic varicose veins Vitamin D deficiency Unspecified vitamin D deficiency Benign prostatic hyperplasia without lower urinary tract symptoms Advance directive discussed with patient Other specified counseling Elevated PSA Elevated prostate specific antigen (PSA) Mass of shoulder region Other symptoms referable to shoulder joint documented in this encounter [facility] note* Diagnosis Essential hypertension, benign- Primary Hyperlipidemia, mixed Mixed hyperlipidemia Gastroesophageal reflux disease without esophagitis Esophageal reflux Vitamin D deficiency Unspecified vitamin D deficiency Elevated blood sugar Other abnormal glucose documented in this encounter [facility] note* Diagnosis Medicare annual wellness visit, subsequent- Primary Routine general medical examination at [facility] Essential hypertension, benign Hyperlipidemia, mixed Mixed hyperlipidemia Elevated blood sugar Other abnormal glucose Gastroesophageal reflux disease without esophagitis Esophageal reflux Vitamin D deficiency Unspecified vitamin D deficiency Prostate cancer (HCC) Malignant neoplasm of prostate Benign prostatic hyperplasia without lower urinary tract symptoms 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 Neoplasm of uncertain behavior of skin Incisional hernia, without obstruction or gangrene Incisional hernia without mention of obstruction or gangrene Encounter for screening examination for other mental health and behavioral disorders Advance directive discussed with patient Other specified counseling Screening for depression Elevated LFTs Other abnormal blood chemistry Hyperkalemia Hyperpotassemia [facility] Diagnosis Mass of shoulder region Other symptoms referable to shoulder joint documented in this encounter [facility] for referral (narrative)* Diagnostic Procedure Only (Routine) - Authorized Specialty Diagnoses / Procedures Referred By Contac t Referred To Contact US IMAGING Diagnoses Screening for abdominal aortic aneurysm Ex-smoker Procedures US SCREENING FOR AAA (2017) US ABDOMINAL AORTA REAL TIME SCREEN STUDY AAA Juan A Scanlon MD [address] [id number] Us Imaging Referral ID Status Reason Start Date Expiration Date Visits Requested Visits Authorized [id number] Authorized Auto-Generat ed Referral 03/09/2022 04/07/2023 1 1 [facility] for referral (narrative)* Diagnostic Procedure Only (Routine) - Closed Specialty Diagnoses / Procedures Referred By Contac t Referred To Contact US IMAGING Diagnoses Screening for abdominal aortic aneurysm Ex-smoker Procedures US SCREENING FOR AAA (2017) US ABDOMINAL AORTA REAL TIME SCREEN STUDY AAA Juan A Scanlon MD [address] [place] [address] Us Imaging Referral ID Status Reason Start Date Expiration Date V isits Requested Visits Authorized [id number] Closed Auto-Generate d Referral 03/09/2022 04/07/2023 1 1 [facility] for referral (narrative)* Diagnostic Procedure Only (Routine) - Closed Specialty Diagnoses / Procedures Referred By Contac t Referred To Contact XR IMAGING Diagnoses Mass of shoulder region Procedures XR SHOULDER GENERAL 3V OR MORE AP/TRUE AP/OTHER RIGHT RADEX SHOULDER COMPLETE MINIMUM 2 VIEWS Juan A Scanlon MD [address] [place] [address] [place] [address] Referral ID Status Reason Start Date Expiration Date V isits Requested Visits Authorized [id number] Closed Auto-Generate d Referral 03/10/2023 04/08/2024 1 1 [facility] for referral (narrative)* Diagnostic Procedure Only (Routine) - Closed Specialty Diagnoses / Procedures Referred By Contac t Referred To Contact XR IMAGING Diagnoses Mass of shoulder region Procedures XR SHOULDER GENERAL 3V OR MORE AP/TRUE AP/OTHER RIGHT RADEX SHOULDER COMPLETE MINIMUM 2 VIEWS Juan A Scanlon MD [address] [place] [address] [place] [address] Referral ID Status Reason Start Date Expiration Date V isits Requested Visits Authorized [id number] Closed Auto-Generate d Referral 03/10/2023 04/08/2024 1 1 [facility] for visit Narrative* Diagnostic Procedure Only (Routine) - Closed Specialty Diagnoses / Procedures Referred By Contac t Referred To Contact XR IMAGING Diagnoses Mass of shoulder region Procedures XR SHOULDER GENERAL 3V OR MORE AP/TRUE AP/OTHER RIGHT RADEX SHOULDER COMPLETE MINIMUM 2 VIEWS Juan A Scanlon MD [address] [place] [address] [place] [address] Referral ID Status Reason Start Date Expiration Date V isits Requested Visits Authorized [id number] Closed Auto-Generate d Referral 03/10/2023 04/08/2024 [address] 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 Worker Expl anation Advance Directive(s) 05/28/2016 11:59 AM Reason for Referral Specialty Diagnoses / Procedures Referred By Contac t Referred To Contact Urology Diagnoses Elevated PSA Procedures CONSULT TO UROLOGY OFFICE/OUTPATIENT NEW HIGH MDM 60-74 MINUTES Nancy Park PA-C [address] [place] [address] Referral ID Status Reason Start Date Expiration Date Visits Requested Visits Authorized [id number] Authorized PCP Requested Referral 03/16/2022 03/16/2023 1 1 Summary Purpose Family History No Family History Records Found Additional Source Comments Source Comments (unrecognize d section and content) In the event this informatio n is protected by the Federal Confidentiality of Alcohol and Drug Abuse Patient Records regulations: The Federal rules restrict any use of the information to criminally investigate or prosecute any alcohol or drug abuse patient.[facility] the event this information is protected by the Federal Confidentiality of Alcohol and Drug Abuse Patient Records regulations: The Federal rules restrict any use of the information to criminally investigate or prosecute any alcohol or drug abuse patient.[facility] the event this information is protected by the Federal Confidentiality of Alcohol and Drug Abuse Patient Records regulations: The Federal rules restrict any use of the information to criminally investigate or prosecute any alcohol or drug abuse patient.[facility] the event this information is protected by the Federal Confidentiality of Alcohol and Drug Abuse Patient Records regulations: The Federal rules restrict any use of the information to criminally investigate or prosecute any alcohol or drug abuse patient.[facility] the event this information is protected by the Federal Confidentiality of Alcohol and Drug Abuse Patient Records regulations: The Federal rules restrict any use of the information to criminally investigate or prosecute any alcohol or drug abuse patient.[facility] the event this information is protected by the Federal Confidentiality of Alcohol and Drug Abuse Patient Records regulations: The Federal rules restrict any use of the information to criminally investigate or prosecute any alcohol or drug abuse patient.[facility] the event this information is protected by the Federal Confidentiality of Alcohol and Drug Abuse Patient Records regulations: The Federal rules restrict any use of the information to criminally investigate or prosecute any alcohol or drug abuse patient.[facility] the event this information is protected by the Federal Confidentiality of Alcohol and Drug Abuse Patient Records regulations: The Federal rules restrict any use of the information to criminally investigate or prosecute any alcohol or drug abuse patient.[facility] the event this information is protected by the Federal Confidentiality of Alcohol and Drug Abuse Patient Records regulations: The Federal rules restrict any use of the information to criminally investigate or prosecute any alcohol or drug abuse patient.[facility] the event this information is protected by the Federal Confidentiality of Alcohol and Drug Abuse Patient Records regulations: The Federal rules restrict any use of the information to criminally investigate or prosecute any alcohol or drug abuse patient.[facility] the event this information is protected by the Federal Confidentiality of Alcohol and Drug Abuse Patient Records regulations: The Federal rules restrict any use of the information to criminally investigate or prosecute any alcohol or drug abuse patient.[facility] the event this information is protected by the Federal Confidentiality of Alcohol and Drug Abuse Patient Records regulations: The Federal rules restrict any use of the information to criminally investigate or prosecute any alcohol or drug abuse patient.[facility] the event this information is protected by the Federal Confidentiality of Alcohol and Drug Abuse Patient Records regulations: The Federal rules restrict any use of the information to criminally investigate or prosecute any alcohol or drug abuse patient.[facility] the event this information is protected by the Federal Confidentiality of Alcohol and Drug Abuse Patient Records regulations: The Federal rules restrict any use of the information to criminally investigate or prosecute any alcohol or drug abuse patient.[facility] the event this information is protected by the Federal Confidentiality of Alcohol and Drug Abuse Patient Records regulations: The Federal rules restrict any use of the information to criminally investigate or prosecute any alcohol or drug abuse patient.[facility] the event this information is protected by the Federal Confidentiality of Alcohol and Drug Abuse Patient Records regulations: The Federal rules restrict any use of the information to criminally investigate or prosecute any alcohol or drug abuse patient.[facility] the event this information is protected by the Federal Confidentiality of Alcohol and Drug Abuse Patient Records regulations: The Federal rules restrict any use of the information to criminally investigate or prosecute any alcohol or drug abuse patient.[facility] CenterIn the event this information is protected by the Federal Confidentiality of Alcohol and Drug Abuse Patient Records regulations: The Federal rules restrict any use of the information to criminally investigate or prosecute any alcohol or drug abuse patient.[facility] CenterIn the event this information is protected by the Federal Confidentiality of Alcohol and Drug Abuse Patient Records regulations: The Federal rules restrict any use of the information to criminally investigate or prosecute any alcohol or drug abuse patient.[facility] CenterIn the event this information is protected by the Federal Confidentiality of Alcohol and Drug Abuse Patient Records regulations: The Federal rules restrict any use of the information to criminally investigate or prosecute any alcohol or drug abuse patient.[facility] CenterIn the event this information is protected by the Federal Confidentiality of Alcohol and Drug Abuse Patient Records regulations: The Federal rules restrict any use of the information to criminally investigate or prosecute any alcohol or drug abuse patient.[facility] CenterIn the event this information is protected by the Federal Confidentiality of Alcohol and Drug Abuse Patient Records regulations: The Federal rules restrict any use of the information to criminally investigate or prosecute any alcohol or drug abuse patient.[facility] CenterIn the event this information is protected by the Federal Confidentiality of Alcohol and Drug Abuse Patient Records regulations: The Federal rules restrict any use of the information to criminally investigate or prosecute any alcohol or drug abuse patient.[facility] Reason for Visit (unrecogniz ed section and content) Reason Comments Outside Labs Results Reason Comments Establish Care Medicare Wellness Exam Reason Comments Radiology US Specialty Diagnoses / Procedures Referred By Mellisa ríos Referred To Contact US IMAGING Diagnoses Screening for abdominal aortic aneurysm Ex-smoker Procedures US SCREENING FOR AAA (2017) US ABDOMINAL AORTA REAL TIME SCREEN STUDY AAA Juan A Scanlon MD [address] [place] [address] Us Imaging Referral ID Status Reason Start Date Expiration Date V isits Requested Visits Authorized [id number] Closed Auto-Generate d Referral 03/09/2022 04/07/2023 1 1 Reason Comments Results Reason Comments Blood Pressure Check Reason Comments Blood Pressure Reason Comments Results Reason Comments outside imagina Addendum to CT scan Reason Comments Medicare Wellness Exam Reason Comments Outside [id number] Ordered Reason Comments Outside Reason Comments Results, Lab Reason Comments Ext / Labs Reason Comments Consult Reason Comments Orders Reason Comments Medicare Wellness Exam Care Teams (unrecognized sec tion and content) [employer] Super[employer] Relationship Specialty Start Date End Date Juan A Scanlon MD [address] [place] [address] PCP - General Family Practice 03/06/21 [employer] Supervisor Relationship Specialty Start Date End Date Juan A Scanlon MD [address] [place] [address] PCP - General Family Practice 03/06/21 [employer] Supervisor Relationship Specialty Start Date End Date Juan A Scanlon MD [address] [place] [address] PCP - General Family Practice 03/06/21 [employer] Supervisor Relationship Specialty Start Date End Date Juan A Scanlon MD [facility] [place] [address] PCP - General Family Practice 03/06/21 [employer] Supervisor Relationship Specialty Start Date End Date Juan A Scanlon MD [address] [place] [address] PCP - General Family Practice 03/06/21 [employer] Supervisor Relationship Specialty Start Date End Date Juan A Scanlon MD [address] [place] [address] PCP - General Family Practice 03/06/21 [employer] Supervisor Relationship Specialty Start Date End Date Juan A Scanlon MD [address] [place] [address] PCP - General Family Medicine 03/06/21 [employer] Supervisor Relationship Specialty Start Date End Date Juan A Scanlon MD [address] [place] [address] PCP - General Family Medicine 03/06/21 [employer] Supervisor Relationship Specialty Start Date End Date Juan A Scanlon MD [address] [place] [address] PCP - General Family Medicine 03/06/21 [employer] Supervisor Relationship Specialty Start Date End Date Juan A Scanlon MD [address] [place] [address] PCP - General Family Medicine 03/06/21 [employer] Supervisor Relationship Specialty Start Date End Date Juan A Scanlon MD [address] [place] [address] PCP - General Family Medicine 03/06/21 [employer] Supervisor Relationship Specialty Start Date End Date Juan A Scanlon MD [address] [place] [address] PCP - General Family Medicine 03/06/21 [employer] Supervisor Relationship Specialty Start Date End Date Juan A Scanlon MD [address] [place] [address] PCP - General Family Medicine 03/06/21 [employer] Supervisor Relationship Specialty Start Date End Date Juan A Scanlon MD [address] [place] [address] PCP - General Family Medicine 03/06/21 (unrecognized sect ion and content) No Status Records Found INFORMATION SOURCE (unrecogn ized section and content) DATE CREATED AUTHOR 03/25/2024 [facility] FOR RECORDS PERTAINING TO PATIENTS WHO ARE OR HAVE BEEN ENROLLED IN A CHEMICAL DEPENDENCY/SUBSTANCEABUSE PROGRAM, SOME INFORMATION MAY BE OMITTED. This clinical summary was aggregated from multiple sources. Caution should be exercised in using it in the provision of clinical care. This summary normalizes information from multiple sources, and as a consequence, information in this document may materially change the coding, format and clinical context of patient data. In addition, data may be omitted in some cases. CLINICAL DECISIONS SHOULD BE BASED ON THE PRIMARY CLINICAL RECORDS. [email or web address] provides no warranty or guarantee of the accuracy or completeness of information in this document.
[2024-05-01 08:06] LABS: PSA,Total- Diagnostic < 0.01 ng/mL (0.0-4.0)
== END | disposition home or self-care (01) ==
PROVIDERS: PCP Family Medicine; Referring Provider Nurse Practitioner; Visit Provider Nurse Practitioner
DX: C61 Malignant neoplasm of prostate (principal)
CPT/HCPCS: 36415; 84153

== ENCOUNTER → 2024-05-04 | Outpatient (CLI) | payer MEDICARE, OTHER, SELFPAY ==
--- OUTSIDE RECORDS SUMMARY | 2024-05-04 06:23 | XMS RPT_ITS | CCD ---
Author Organization [facility] Care Team Providers Care Breastfeeding Educator Name Role Phone Juan A Scanlon MD Primary Care Provider [phone] JUAN A SCANLON Primary Care Unavailable JUAN A SCANLON Referring Unavailable JUAN A SCANLON Attending Unavailable JUAN A SCANLON Primary Care Unavailable JUAN A SCANLON Referring Unavailable JUAN A SCANLON Primary Care Unavailable Allergies Allergy Classification Reported Allergen(s) Allergy Type Date of Onset Reaction(s) Facility (20 sources) Lisinopril; Translations: [LISINOPRIL] Drug Allergy 01-21-2010 [facility] Medications Current Medications Medication Drug Class(es) Dates [...] 1 tablet by alejo th once daily. clobetasol propionate 0.5 mg/ml topical [...] dir ected. tadalafil 20 mg oral tablet (9 sources) Phosphodiesterase 5 Inhibitor Start: 4 take 1 tablet by mouth once daily as needed Tadalafil (CIALIS) 20 mg tablet Take 1 tablet by mouth once daily as needed. 10 tablet 5 07/15/2023 Active Comment on above: Take 1 tablet by alejo once daily as needed. Completed/Discontinued Medications Medication Drug Class(es) Dates Sig (Normalized) Sig (Original) apremilast 30 mg oral tablet (6 sources) Start: 03-10-2023 apremilast (OTEZLA) 30 mg tablet 1 tablet once daily. Per Davis, [facility] 0 03/10/2023 Active Start: 09-15-2022 End: 03-10-2023 apremilast (OTEZLA) 30 mg ta blet Comment on above: 1 tablet once daily. Per Davis, [facility] doxycycline monohydrate 100 mg oral capsule (15 sources) Tetracycline-class Drug Start: 11-10-2018 End: 03-10-2023 take 1 capsule by mouth once doxycycline monohydrate (MONODOX) 100 mg capsule Take 1 capsule by mouth once daily. Per [facility] 0 03/10/2023 Active Comment on above: Take 100 mg by mouth once daily. Take 1 capsule by mo uth once daily. Per Derm, [facility] Problems Active Problems Problem Classification Problem Date Documented Date Episodic/Chronic Abdominal hernia (20 sources) Umbilical hernia; Translations: [Umbilical hernia without obstruction or gangrene] Onset: 03-22-2007 Resolved: 08-19-2014 08-19-2014 Episodic Cancer of prostate (12 sources) Malignant tumor of prostate; Translations: [Malignant [...] Translations: [Rosacea, unspecified] Onset: 03-09-2022 Chronic Other screening for suspected conditions (not mental disorders or infectious disease) (20 sources) Patient encounter status; Translations: [Encounter for screening for malignant neoplasm of colon] Onset: 10-17-2014 03-06-2021 Episodic Other skin disorders (2 sources) Mass of shoulder region; Translations: [Localized swelling, mass and lump, unspecified upper limb] 03-10-2023 Episodic Past or Other Problems Problem Classification Problem Date Documented Date Episodic/Chronic Administrative/social admission (20 sources) Advance directive discussed with patient; Translations: [Other specified counseling] Onset: 03-09-2022 Episodic Chronic ulcer of skin (8 sources) Finger ulcer; Translations: [Non-pressure chronic ulcer of skin of other sites limited to breakdown of skin] Onset: 10-02-2018 Resolved: 02-25-2020 02-25-2020 Chronic Diabetes mellitus without complication (19 sources) Hyperglycemia; Translations: [Hyperglycemia, unspecified] Onset: 03-10-2023 [...] 11-16-2016 11-16-2016 Episodic Other male genital disorders (8 sources) Disorder of male genital organ; Translations: [Other hydrocele] Onset: 06-20-2007 Resolved: 11-16-2016 11-16-2016 Episodic Residual codes; unclassified (20 sources) Active advance directive; Translations: [Other specified health status] Onset: 03-06-2021 03-06-2021 Episodic Screening and history of mental health and substance abuse codes (20 sources) Ex-smoker; Translations: [Personal history of nicotine dependence] Onset: 03-09-2022 Episodic Spondylosis; intervertebral disc disorders; other back problems (8 sources) Low back pain co-occurrent with neuralgia of left sciatic nerve; Translations: [Lumbago with sciatica, left side] Onset: 09-23-2015 Resolved: 09-28-2016 09-28-2016 Episodic Varicose veins of lower extremity (20 sources) Varicose veins of lower extremity; Translations: [Asymptomatic varicose veins of left lower extremity] Onset: 11-16-2016 11-16-2016 Episodic Results Test Name Value Interpretation Reference Range Facility PSA (OUTSIDE)on 05-01-2024 [facility] CNOVon 03-13-2024 CNOV Office Visit (FAMPWS ) GIRMA CRISOSTOMO ([id number]) 1945 M Date Time Provider Department 03/13/24 8:00 AM [facility]UAN A SC[facility]LON [facility] During your visit today, we recorded the following information about you: Pulse Respiration Blood pressure Weight 80/minute 16/minute 144/78 96.2 kg Height 1.765 m Juan A Scanlon MD 03/13/2024 2:49 PM Signed Girma Thompsonler is a 78 year old male here [...] tablet Steffen (more content not included)... Normal [facility] 03-13-2024 [facility] GIRMA CRISOSTOMO ([id number]) 1945 M Date Time Provider Department 03/13/24 [facility] During your visit today, we recorded the [...] Status:Closed by RIOS AUSTIN on 03/14/24 Normal [facility] Comprehensive metabolic 2000 panelon 03-13-2024 Albumin [Mass/Vol] 4.3 g/dL 3.9 - 4.9 g/dL [facility] ALP [Catalytic activity/Vol] 85 U/L 38 - 113 U/L [facility] ALT [Catalytic activity/Vol] 44 U/L 10 - 54 U/L [facility] Anion gap [Moles/Vol] 9 mmol/L 8 - 15 mmol/L [facility] AST [Catalytic activity/Vol] 37 U/L 14 - 40 U/L [facility] Bilirubin [Mass/Vol] 0.7 mg/dL 0.2 - 1.3 mg/dL [facility] Calcium [Mass/Vol] 9.8 mg/dL 8.5 - 10.2 mg/dL [facility] Chloride [Moles/Vol] 105 mmol/L 98 - 107 mmol/L [facility] CO2 [Moles/Vol] 26 mmol/L 22 - 30 mmol/L [facility] Creatinine [Mass/Vol] 0.93 mg/dL 0.73 - 1.22 mg/dL [facility] GFR/1.73 sq M.predicted among non-blacks MDRD (S/P/Bld) [Vol rate/Area] 85 mL/min/{1.73_m2} - PINF [facility] Comment on above: Estimated Glomerular Filtration Rate [...] 113 mg/dL High 74 - 99 mg/dL [facility] Comment on above: The [place] Diabete s Association (ADA) provides guidance for [...] Standards of Medical Care in Diabetes 2016, [place] Diabetes Association. Diabetes Care. 2016.39(Suppl 1). Interpretation and review of laboratory results Abnormal [facility] Potassium [Moles/Vol] 4.5 mmol/L 3.7 - 5.1 mmol/L [facility] Protein [Mass/Vol] 7.4 g/dL 6.3 - 8.0 g/dL [facility] Sodium [Moles/Vol] 140 mmol/L 136 - 144 mmol/L [facility] Urea nitrogen [Mass/Vol] 20 mg/dL 9 - 24 mg/dL [facility] Albumin [Mass/Vol] 4.3 g/dL Normal 3.9-4.9 [facility] Comment on above: Order Comment: Speci men Type: BLOOD SPECIMENOrdering Facility: [facility] Address: [address] [place] [address] Performed By: #### 2 4323-8 ####[facility] [id number] [place] [address] [place] ALP [Catalytic activity/Vol] 85 U/L Normal 38-113 [facility] Comment on above: Order Comment: Speci men Type: BLOOD SPECIMENOrdering Facility: [facility] Address: [address] [place] [address] Performed By: #### 2 4323-8 ####[facility] [id number] [facility] [place] [address] [place] ALT [Catalytic activity/Vol] 44 U/L Normal 10-54 [facility] Comment on above: Order Comment: Speci men Type: BLOOD SPECIMENOrdering Facility: [facility] Address: [address] [place] [address] Performed By: #### 2 4323-8 ####[facility] [id number] [place] [address] [place] Anion gap [Moles/Vol] 9 mmol/L Normal 8-15 [facility] Comment on above: Order Comment: Speci men Type: BLOOD SPECIMENOrdering Facility: [facility] Address: [address] [place] [address] Performed By: #### 2 4323-8 ####[facility] [id number] [place] [address] [place] AST [Catalytic activity/Vol] 37 U/L Normal 14-40 [facility] Comment on above: Order Comment: Speci men Type: BLOOD SPECIMENOrdering Facility: [facility] Address: [address] [place] [address] Performed By: #### 2 4323-8 ####[facility] [id number] [place] [address] [place] Bilirubin [Mass/Vol] 0.7 mg/dL Normal 0.2-1.3 [facility] Comment on above: Order Comment: Speci men Type: BLOOD SPECIMENOrdering Facility: [facility] Address: [address] [place] [address] Performed By: #### 2 4323-8 ####[facility] [id number] [place] [id number] [place] Calcium [Mass/Vol] 9.8 mg/dL Normal 8.5-10.2 [facility] Comment on above: Order Comment: Speci men Type: BLOOD SPECIMENOrdering Facility: [facility] Address: [address] [place] [address] Performed By: #### 2 4323-8 ####[facility] [id number] [place] [address] [place] Chloride [Moles/Vol] 105 mmol/L Normal 98-107 [facility] Comment on above: Order Comment: Speci men Type: BLOOD SPECIMENOrdering Facility: [facility] Address: [address] [place] [address] Performed By: #### 2 4323-8 ####[facility] [id number] [place] [address] [place] CO2 [Moles/Vol] 26 mmol/L Normal 22-30 [facility] Comment on above: Order Comment: Speci men Type: BLOOD SPECIMENOrdering Facility: [facility] Address: [address] [place] [address] Performed By: #### 2 4323-8 ####[facility] [id number] [place] [address] [place] Creatinine [Mass/Vol] 0.93 mg/dL Normal 0.73-1.22 [facility] Comment on above: Order Comment: Speci men Type: BLOOD SPECIMENOrdering Facility: [facility] Address: [address] [place] [address] Performed By: #### 2 4323-8 ####[facility] [id number] [place] [address] [place] Creatinine and Glomerular filtration rate.predicted panel (S/P/Bld) 85 mL/min/1.73m??? Normal >=60 [facility] Comment on above: Order Comment: Speci men Type: BLOOD SPECIMENOrdering Facility: [facility] Address: [address] [place] [address] Result Comment: Concetta mated Glomerular Filtration Rate [...] actual GFR. Performed By: #### 2 4323-8 ####[facility] [id number] [place] [address] [place] Glucose [Mass/Vol] 113 mg/dL High 74-99 [facility] Comment on above: Order Comment: Afshan calixto Type: BLOOD SPECIMENOrdering Facility: [facility] Address: [address] [place] [address] Result Comment: The [place] Diabetes Association (ADA) provides guidance for cutoff [...] Standards of Medical Care in Diabetes 2016, [place] Diabetes Association. Diabetes Care. 2016.39(Suppl 1). Performed By: #### 2 4323-8 ####[facility] [id number] [place] [id number] [place] Potassium [Moles/Vol] 4.5 mmol/L Normal 3.7-5.1 [facility] Comment on above: Order Comment: Afshan calixto Type: BLOOD SPECIMENOrdering Facility: [facility] Address: [address] [place] [address] Performed By: #### 2 4323-8 ####[facility] [id number] [place] [id number] [place] Protein [Mass/Vol] 7.4 g/dL Normal 6.3-8.0 [facility] Comment on above: Order Comment: Speci men Type: BLOOD SPECIMENOrdering Facility: [facility] Address: [address] [place] [address] Performed By: #### 2 4323-8 ####[facility] [id number] [place] [address] [place] Sodium [Moles/Vol] 140 mmol/L Normal 136-144 [facility] Comment on above: Order Comment: Speci men Type: BLOOD SPECIMENOrdering Facility: [facility] Address: [address] [place] [address] Performed By: #### 2 4323-8 ####[facility] [id number] [place] [address] [place] Urea nitrogen [Mass/Vol] 20 mg/dL Normal 9-24 [facility] Comment on above: Order Comment: Speci men Type: BLOOD SPECIMENOrdering Facility: [facility] Address: [address] [place] [address] Performed By: #### 2 4323-8 ####[facility] [id number] [place] [address] [place] 25(OH)D3 [facility] 2023 25-hydroxyvitamin D3 [Mass/Vol] 34.2 ng/mL Normal 31.0-80.0 [facility] Comment on above: Order Comment: Speci men Type: BLOOD SPECIMENOrdering Facility: [facility] Address: [address] [place] [address] Performed By: #### 1 989-3 ####[facility] [id number] [place] [id number] [place] Comprehensive metabolic 2000 panelon 03-02-2024 Albumin [Mass/Vol] 4.3 g/dL Normal 3.9-4.9 [facility] Comment on above: Order Comment: Speci men Type: BLOOD SPECIMENOrdering Facility: [facility] Address: [address] [place] [address] Performed By: #### 2 4323-8, LIPNF ####[facility] [id number] [place] [address] [place] ALP [Catalytic activity/Vol] 80 U/L Normal 38-113 [facility] Comment on above: Order Comment: Speci men Type: BLOOD SPECIMENOrdering Facility: [facility] Address: [address] [place] [address] Performed By: #### 2 4323-8, LIPNF ####[facility] [id number] [place] [address] [place] ALT [Catalytic activity/Vol] 53 U/L Normal 10-54 [facility] Comment on above: Order Comment: Speci men Type: BLOOD SPECIMENOrdering Facility: [facility] Address: [address] [place] [address] Performed By: #### 2 4323-8, LIPNF ####[facility] [id number] [place] [address] [place] Anion gap [Moles/Vol] 10 mmol/L Normal 8-15 [facility] Comment on above: Order Comment: Speci men Type: BLOOD SPECIMENOrdering Facility: [facility] Address: [address] [place] [address] Performed By: #### 2 4323-8, LIPNF ####[facility] [id number] [place] [address] [place] AST [Catalytic activity/Vol] 42 U/L High 14-40 [facility] Comment on above: Order Comment: Speci men Type: BLOOD SPECIMENOrdering Facility: [facility] Address: [address] [place] [address] Performed By: #### 2 4323-8, LIPNF ####[facility] [id number] [place] [address] [place] Bilirubin [Mass/Vol] 0.4 mg/dL Normal 0.2-1.3 [facility] Comment on above: Order Comment: Speci men Type: BLOOD SPECIMENOrdering Facility: [facility] Address: [address] [place] [address] Performed By: #### 2 4323-8, LIPNF ####[facility] [id number] [place] [address] [place] Calcium [Mass/Vol] 9.6 mg/dL Normal 8.5-10.2 [facility] Comment on above: Order Comment: Speci men Type: BLOOD SPECIMENOrdering Facility: [facility] Address: [address] [place] [address] Performed By: #### 2 4323-8, LIPNF ####[facility] [id number] [place] [address] [place] Chloride [Moles/Vol] 107 mmol/L Normal 98-107 [facility] Comment on above: Order Comment: Speci men Type: BLOOD SPECIMENOrdering Facility: [facility] Address: [address] [place] [address] Performed By: #### 2 4323-8, LIPNF ####[facility] [id number] [place] [address] [place] CO2 [Moles/Vol] 25 mmol/L Normal 22-30 [facility] Comment on above: Order Comment: Speci men Type: BLOOD SPECIMENOrdering Facility: [facility] Address: [address] [place] [address] Performed By: #### 2 4323-8, LIPNF ####[facility] [id number] [place] [address] [place] Creatinine [Mass/Vol] 0.96 mg/dL Normal 0.73-1.22 [facility] Comment on above: Order Comment: Afshan calixto Type: BLOOD SPECIMENOrdering Facility: [facility] Address: [address] [place] [address] Performed By: #### 2 4323-8, LIPNF ####[facility] [id number] [place] [address] [place] Creatinine and Glomerular filtration rate.predicted panel (S/P/Bld) 82 mL/min/1.73m??? Normal >=60 [facility] Comment on above: Order Comment: Afshan calixto Type: BLOOD SPECIMENOrdering Facility: [facility] Address: [address] [place] [address] Result Comment: Concetta mated Glomerular Filtration Rate [...] GFR. Performed By: #### 2 4323-8, LIPNF ####[facility] [id number] [place] [address] [place] Glucose [Mass/Vol] 102 mg/dL High 74-99 [facility] Comment on above: Order Comment: Afshan calixto Type: BLOOD SPECIMENOrdering Facility: [facility] Address: [address] [place] [address] Result Comment: The [place] Diabetes Association (ADA) provides guidance for cutoff [...] Standards of Medical Care in Diabetes 2016, [place] Diabetes Association. Diabetes Care. 2016.39(Suppl 1). Performed By: #### 2 4323-8, LIPNF ####[facility] [id number] [place] [address] [place] Potassium [Moles/Vol] 5.3 mmol/L High 3.7-5.1 [facility] Comment on above: Order Comment: Speci men Type: BLOOD SPECIMENOrdering Facility: [facility] Address: [address] [place] [address] Performed By: #### 2 4323-8, LIPNF ####[facility] [id number] [place] [address] [place] Protein [Mass/Vol] 7.2 g/dL Normal 6.3-8.0 [facility] Comment on above: Order Comment: Speci men Type: BLOOD SPECIMENOrdering Facility: [facility] Address: [address] [place] [address] Performed By: #### 2 4323-8, LIPNF ####[facility]IA [id number] [place] [address] [place] Sodium [Moles/Vol] 142 mmol/L Normal 136-144 [facility] Comment on above: Order Comment: Speci men Type: BLOOD SPECIMENOrdering Facility: [facility] Address: [address] [place] [address] Performed By: #### 2 4323-8, LIPNF ####[facility] [id number] [place] [address] [place] Urea nitrogen [Mass/Vol] 20 mg/dL Normal 9-24 [facility] Comment on above: Order Comment: Speci men Type: BLOOD SPECIMENOrdering Facility: [facility] Address: [address] [place] [address] Performed By: #### 2 4323-8, LIPNF ####[facility] [id number] [address] [place] HbA1c (Bld)on 03-02-2024 Average glucose Estimated from glycated hemoglobin (Bld) [Mass/Vol] 108 mg/dL Normal [facility] Comment on above: Order Comment: Afshan calixto Type: BLOOD SPECIMENOrdering Facility: [facility] Address: [address] [place] [address] Result Comment: eAG: (Estimated average glucose) is a calculated value from HgbA1c and is veterans employment representative of the average blood glucose level in the last 2-3 month period. Performed By: #### 5 5454-3 ####[facility] [id number] [address] [place] HbA1c (Bld) [Mass fraction] 5.4 % Normal 4.3-5.6 [facility] Comment on above: Order Comment: Afshan calixto Type: BLOOD SPECIMENOrdering Facility: [facility] Address: [address] [place] [address] Result Comment: Amer [place] Diabetes Association guidelines indicate that patients with HgbA1c in the range 5.7-6.4% are at increased risk for development of diabetes, and intervention by lifestyle modification may be beneficial. HgbA1c greater or equal to 6.5% is considered diagnostic of diabetes. Performed By: #### 5 5454-3 ####[facility] [id number] [place] [address] [place] LIPID PANEL, NONFASTINGon Cholesterol [Mass/Vol] 184 mg/dL Normal <200 [facility] Comment on above: Order Comment: Afshan calixto Type: BLOOD SPECIMENOrdering Facility: [facility] Address: [address] [place] [address] Result Comment: <200 mg/dL, Desirable 200-239 mg/dL, Borderline high >239 mg/dL, High Performed By: #### 2 4323-8, LIPNF ####[facility] [id number] [address] [place] HDL CHOLESTEROL, NF 45 mg/dL Normal >39 [facility] Comment on above: Order Comment: Yumikoherbert calixto Type: BLOOD SPECIMENOrdering Facility: [facility] Address: [address] [place] [address] Result Comment: 40-5 9 mg/dL, Acceptable >59 mg/dL, High: Negative risk factor for coronary heart disease <40 mg/dL, Low: Positive risk factor for coronary heart disease Performed By: #### 2 4323-8, LIPNF ####[facility] [id number] [address] LDL CHOLESTEROL, NF 115 mg/dL High <100 [facility] Comment on above: Order Comment: Afshan marily Type: BLOOD SPECIMENOrdering Facility: [facility] Address: [address] [place] [address] Result Comment: <100 mg/dL, Optimal 100-129 mg/dL, Near optimal/above optimal 130-159 mg/dL, Borderline high 160-189 mg/dL, High >189 mg/dL, Very high Secondary prevention optimal LDL Cholesterol levels are recommended to be < 70 mg/dL Performed By: #### 2 4323-8, LIPNF ####[facility] [id number] [address] LDL/HDL RATIO, NF 2.56 mg/dL High <2.54 [facility] Comment on above: Order Comment: Afshan calixto Type: BLOOD SPECIMENOrdering Facility: [facility] Address: [address] [place] [address] Result Comment: Refe rence: 1. National Cholesterol Education Program ATP III Guideline At-A-Glance Quick Desk Reference: National Heart, Lung, and Blood [place]. National Institutes of Health. 2001: NIH Publication No. 01-3305. 2. An International Atherosclerosis Society position paper: global recommendations for the management of dyslipidemia: executive summary, Atherosclerosis. 2014: 232(2):410-413. Performed By: #### 2 4323-8, LIPNF ####[facility] [id number] [place] [address] [place] NON HDL CHOL, NF 139 mg/dL High <130 [facility] Comment on above: Order Comment: Speci men Type: BLOOD SPECIMENOrdering Facility: [facility] Address: [address] [place] [address] Result Comment: <130 mg/dL, Optimal 130-159 mg/dL, Near optimal/above optimal 160-189 mg/dL, Borderline high 190-219 mg/dL, High >219 mg/dL, Very high Secondary prevention optimal non HDL Cholesterol levels are recommended to be <100 mg/dL Performed By: #### 2 4323-8, LIPNF ####[facility] [id number] [place] [address] [place] T CHOL/HDL RATIO NF 4.09 mg/dL Normal <5.10 [facility] Comment on above: Order Comment: Speci men Type: BLOOD SPECIMENOrdering Facility: [facility] Address: [address] [place] [address] Performed By: #### 2 4323-8, LIPNF ####[facility] [id number] [place] [address] [place] TRIGLYCERIDES, NF 121 mg/dL Normal <150 [facility] System Comment on above: Order Comment: Speci men Type: BLOOD SPECIMENOrdering Facility: [facility] Address: [address] [place] [address] Result Comment: <150 mg/dL, Normal 150-199 mg/dL, Borderline high 200-499 mg/dL, High >499 mg/dL, Very high Performed By: #### 2 4323-8, LIPNF ####[facility]CL[facility] [id number] [place] [address] [place] VLDL CHOLESTEROL, NF 24 mg/dL Normal <30 [facility] Comment on above: Order Comment: Speci men Type: BLOOD SPECIMENOrdering Facility: [facility] Address: [address] [place] [address] Performed By: #### 2 4323-8, LIPNF ####[facility]CL[facility] [id number] [place] [address] [place] Urinalysis complete panel (U )on 03-02-2024 Bacteria LM.HPF (Urine sed) [#/Area] Negative Normal Negative [facility] Comment on above: Order Comment: Speci men Type: URINE SPECIMENOrdering Facility: [facility] Address: [address] [place] [address] Performed By: #### 2 4356-8 ####[facility] [id number] [place] [address] [place] Bilirubin Ql (U) Negative Normal Negative [facility] Comment on above: Order Comment: Speci men Type: URINE SPECIMENOrdering Facility: [facility] Address: [address] [place] [address] Performed By: #### 2 4356-8 ####[facility] [id number] [place] [address] [place] Clarity (Unsp spec) Clear Normal Clear [facility] Comment on above: Order Comment: Speci men Type: URINE SPECIMENOrdering Facility: [facility] Address: [address] [place] [address] Performed By: #### 2 4356-8 ####[facility] [id number] [address] STATES OF [facility] Color (U) Yellow Normal Yellow [facility] Comment on above: Order Comment: Speci men Type: URINE SPECIMENOrdering Facility: [facility] Address: [address] [place] [address] Performed By: #### 2 4356-8 ####[facility] [id number] [place] [address] [place] Epithelial cells LM.HPF (Urine sed) [#/Area] None Seen Normal [facility] Comment on above: Order Comment: Speci men Type: URINE SPECIMENOrdering Facility: [facility] Address: [address] [place] [address] Performed By: #### 2 4356-8 ####[facility] [id number] [place] [address] [place] Glucose Test strip (U) [Mass/Vol] Negative Normal Negative [facility] Comment on above: Order Comment: Speci men Type: URINE SPECIMENOrdering Facility: [facility] Address: [address] [place] [address] Performed By: #### 2 4356-8 ####[facility] [id number] [place] [address] [place] Hemoglobin Ql (U) Negative Normal Negative [facility] Comment on above: Order Comment: Speci men Type: URINE SPECIMENOrdering Facility: [facility] Address: [address] [place] [address] Performed By: #### 2 4356-8 ####[facility] [id number] [place] [address] [place] Hyaline casts (Urine sed) [#/Area] 0 /[LPF] Normal 0 /LPF [facility] Comment on above: Order Comment: Speci men Type: URINE SPECIMENOrdering Facility: [facility] Address: [address] [place] [address] Performed By: #### 2 4356-8 ####[facility] [id number] [place] [address] [place] Ketones Ql (U) Negative Normal Negative [facility] Comment on above: Order Comment: Speci men Type: URINE SPECIMENOrdering Facility: [facility] Address: [address] [place] [address] Performed By: #### 2 4356-8 ####[facility] [id number] [place] [address] [place] Leukocyte esterase Test strip Ql (U) Negative Normal Negative [facility] Comment on above: Order Comment: Speci men Type: URINE SPECIMENOrdering Facility: [facility] Address: [address] [place] [address] Performed By: #### 2 4356-8 ####[facility] [id number] [place] [address] [place] Nitrite Ql (U) Negative Normal Negative [facility] Comment on above: Order Comment: Speci men Type: URINE SPECIMENOrdering Facility: [facility] Address: [address] [place] [address] Performed By: #### 2 4356-8 ####[facility] [id number] [place] [address] [place] pH (U) 5.5 [pH] Normal <8.5 [facility] Comment on above: Order Comment: Speci men Type: URINE SPECIMENOrdering Facility: [facility] Address: [address] [place] [address] Performed By: #### 2 4356-8 ####[facility] [id number] [place] [address] [place] Protein (U) [Mass/Vol] Negative Normal Negative [facility] Comment on above: Order Comment: Speci men Type: URINE SPECIMENOrdering Facility: [facility] Address: [address] [place] [address] Performed By: #### 2 4356-8 ####[facility] [id number] [place] [address] [place] RBC LM.HPF (Urine sed) [#/Area] 0-2 /HPF Normal 0-2 /HPF [facility] Comment on above: Order Comment: Speci men Type: URINE SPECIMENOrdering Facility: [facility] Address: [address] [place] [address] Performed By: #### 2 4356-8 ####[facility] LABIA [id number] [place] [address] [place] Specific gravity (U) [Rel density] 1.020 Normal 1.005-1.030 [facility] Comment on above: Order Comment: Speci men Type: URINE SPECIMENOrdering Facility: [facility] Address: [address] [place] [address] Performed By: #### 2 4356-8 ####[facility] [id number] [place] [address] [place] Urobilinogen Ql (U) 0.2 EU/dL Normal 0.2-1.0 EU/dL [facility] Comment on above: Order Comment: Speci men Type: URINE SPECIMENOrdering Facility: [facility] Address: [address] [place] [address] Performed By: #### 2 4356-8 ####[facility] [id number] [place] [address] [place] WBC LM.HPF (Urine sed) [#/Area] 0-5 /HPF Normal 0-5 /HPF [facility] Comment on above: Order Comment: Speci men Type: URINE SPECIMENOrdering Facility: [facility] Address: [address] [place] [address] Performed By: #### 2 4356-8 ####[facility] [id number] [place] [address] [place] CNPAlexandra 02-29-2024 CNPN Telephone (FAMPWS) GIRMA CRISOSTOMO ([id number]) 1945 Date Time Provider Department 02/29/24 JUAN A SCANLONWS During your visit today, we recorded the [...] [R73.9] Order(s):COMPREHENSIVE METABOLIC PANEL [SQCMP] Order #: [id number] FUTURE HEMOGLOBIN A1C [HPJRZ3K] Order #: [id number] FUTURE URINALYSIS, WITH MICROSCOPIC [SQUAWMIC] Order #: [id number] FUTURE LIPID PANEL, NONFASTING [SQLIPNF] Order #: [id number] FUTURE VITAMIN D 25 HYDROXY [SQVITD] Order #: [id number] FUTURE Prescriptions as of 02/29/2024 - losartan [...] Status:Closed by RIOS AUSTIN on 02/29/24 Normal [facility] XR Shoulder - right 3 Viewso n 03-14-2023 IMPRESSION: Mild deg enerative changes. Nonspecific soft tissue density just superior to the distal clavicle, can consider ultrasound to further evaluate Tableau Analyst: JOSE Transcribe Date/Time: Mar 14 2023 12:40P Dictated by : JEISON TUTTLE MD This examination was interpreted and the report reviewed and electronically signed by: JEISON TUTTLE MD on Mar 14 2023 12:41PM [facility] DIVISION OF RADIOLOGY * * *Final [...] bodies are seen [facility] * * *Final Report* [...] clavicle, can consider ultrasound to further evaluate Tableau Analyst: PSCB Transcribe Date/Time: Mar 14 2023 12:40P Dictated by : JEISON TUTTLE MD This examination was interpreted and the report reviewed and electronically signed by: JEISON TUTTLE MD on Mar 14 2023 12:41PM EST [facility] XR Shoulder - right 3 ViewsO rdered By: Ccf Provider on 03-14-2023 [facility] Comprehensive metabolic 2000 panelon 03-10-2023 Albumin [Mass/Vol] 4.4 g/dL 3.9 - 4.9 g/dL [facility] ALP [Catalytic activity/Vol] 60 U/L 38 - 113 U/L [facility] ALT [Catalytic activity/Vol] 35 U/L 10 - 54 U/L [facility] Anion gap [Moles/Vol] 12 mmol/L 9 - 18 mmol/L [facility] AST [Catalytic activity/Vol] 27 U/L 14 - 40 U/L [facility] Bilirubin [Mass/Vol] 0.7 mg/dL 0.2 - 1.3 mg/dL [facility] Calcium [Mass/Vol] 10.1 mg/dL 8.5 - 10.2 mg/dL [facility] Chloride [Moles/Vol] 107 mmol/L High 97 - 105 mmol/L [facility] CO2 [Moles/Vol] 24 mmol/L 22 - 30 mmol/L [facility] Creatinine [Mass/Vol] 0.96 mg/dL 0.73 - 1.22 mg/dL [facility] Estimated Glomerular Filtration Rate 82 mL/min/1.73m >=60 mL/min/1.73m [facility] Glucose [Mass/Vol] 109 mg/dL High 74 - 99 mg/dL [facility] Potassium [Moles/Vol] 4.9 mmol/L 3.7 - 5.1 mmol/L [facility] Protein [Mass/Vol] 7.5 g/dL 6.3 - 8.0 g/dL [facility] Sodium [Moles/Vol] 143 mmol/L 136 - 144 mmol/L [facility] Urea nitrogen [Mass/Vol] 20 mg/dL 9 - 24 mg/dL [facility] Free PSA [Mass/Vol]on 2022 Free PSA/Total PSA [Mass fraction] 12 % [facility] Prostate specific Ag [Mass/Vol] 7.71 ng/mL High <2.60 ng/mL [facility] HbA1c (Bld)on 03-10-2023 Average glucose Estimated from glycated hemoglobin (Bld) [Mass/Vol] 105 mg/dL [facility] HbA1c (Bld) [Mass fraction] 5.3 % 4.3 - 5.6 % [facility] LIPID PANEL, NONFASTINGon Cholesterol [Mass/Vol] 176 mg/dL <200 mg/dL [facility] HDL Cholesterol, Nonfasting 38 mg/dL Low >39 mg/[facility] LDL Cholesterol, Nonfasting 106 mg/dL High <100 mg/dL [facility] LDL/HDL Ratio, Nonfasting 2.79 mg/dL High <2.54 mg/dL [facility] Non HDL Cholesterol, Nonfasting 138 mg/dL High <130 mg/dL [facility] Total Chol/HDL Ratio, Nonfasting 4.63 mg/dL <5.10 mg/dL [facility] Triglycerides, Nonfasting 161 mg/dL High <150 mg/dL [facility] VLDL Cholesterol, Nonfasting 32 mg/dL High <30 mg/dL [facility] VITAMIN D 25 HYDROXYon 03-10 25-hydroxyvitamin D3 [Mass/Vol] 37.5 ng/mL 31.0 - 80.0 ng/mL [facility] XR Shoulder - right 3 Viewso n 03-10-2023 Radiology Study observation (narrative) [facility] CBC W/DIFF/PLT (EXTERNAL LAB MARY LOU)on 09-21-2022 BASO ABSOLUTE 0.0 k/uL 0.0 - 0.2 k/uL [facility] Basophils/100 WBC (Bld) 0.8 % [facility] EOS ABSOLUTE 0.2 k/uL 0.0 - 0.4 k/uL [facility] Eosinophils/100 WBC (Bld) 3.4 % [facility] Erythrocyte distribution width (RBC) [Ratio] 12.7 % 12.3 - 15.4 % [facility] Hematocrit (Bld) [Volume fraction] 42.5 % 37.5 - 51.0 % [facility] Hemoglobin (Bld) [Mass/Vol] 14.8 g/dL 12.6 - 17.7 g/dL [facility] Immature Gran % [facility] IMMATURE GRANS ABSOLUTE [facility] Lymphocytes (Bld) [#/Vol] 1.2 10*3/uL 0.7 - 3.1 k/uL [facility] Lymphocytes/100 WBC (Bld) 22.0 % [facility] MCH 33.4 Pg Abnormal 26.6 - 33 Pg [facility] MCHC (RBC) [Mass/Vol] 34.9 g/dL 31.5 - 35.7 g/dL [facility] MCV (RBC) [Entitic vol] 95.5 fL 79 - 97 fL [facility] Monocytes (Bld) [#/Vol] 0.6 10*3/uL 0.1 - 0.9 k/uL [facility] Monocytes/100 WBC (Bld) 10.4 % [facility] NEUTROPHILS ABSOLUTE 3.3 k/uL 1.4 - 7.0 k/uL [facility] Neutrophils/100 WBC (Bld) 63.4 % [facility] Platelets (Bld) [#/Vol] 182 10*3/uL 150 - 379 k/uL [facility] RBC (Bld) [#/Vol] 4.45 10*6/uL 4.14 - 5.8 0 M/uL [facility] WBC (Bld) [#/Vol] 5.3 10*3/uL 3.4 - 10.8 K/uL [facility] CMP (EXTERNAL)on 09-21-2022 Albumin [Mass/Vol] 3.9 g/dL 3.2 - 4.6 gm/dL [facility] Alk Phos Total 56 U/L 45 - 117 U/L [facility] ALT [Catalytic activity/Vol] 44 U/L 12 - 78 U/L [facility] AST [Catalytic activity/Vol] 30 U/L 8 - 37 U/L [facility] Bili Total 0.9 mg/dL 0.2 - 1 mg/dL [facility] Calcium [Mass/Vol] 9.7 mg/dL 8.5 - 10.1 mg/dL [facility] Chloride [Moles/Vol] 107 mmol/L 98 - 107 MEQ/L [facility] CO2 [Moles/Vol] 27 mmol/L 21 - 32 MEQ/L [facility] Creatinine [Mass/Vol] 1.1 mg/dL 0.6 - 1.3 MG/DL [facility] GFR AFR AMER [facility] GFR/1.73 sq M.predicted among non-blacks MDRD (S/P/Bld) [Vol rate/Area] 70 mL/min/{1.73_m2} [facility] Glucose [Mass/Vol] 112 mg/dL Abnormal 74 - 106 MG/DL [facility] Potassium [Moles/Vol] 4.3 mmol/L 3.5 - 5.1 mmol/L [facility] Protein [Mass/Vol] 7.1 g/dL 6.4 - 8.2 gm/dL [facility] Sodium [Moles/Vol] 142 mmol/L 136 - 145 mmol/L [facility] Urea nitrogen [Mass/Vol] 18 mg/dL 7 - 18 MG/DL [facility] LIPID PANEL (OUTSIDE)on 09-08 Cholesterol [Mass/Vol] 177 mg/dL 200 [facility] Cholesterol in HDL [Mass/Vol] 38 mg/dL Abnormal 40 [facility] Cholesterol in LDL [Mass/Vol] 127 mg/dL 130 [facility] LDL:HDL Ratio [facility] Non-HDL Cholesterol [facility] TC:HDL Ratio [facility] Triglyceride [Mass/Vol] 171 mg/dL Abnormal 150 [facility] VLDL Cholesterol [facility] PSA (OUTSIDE)on 09-21-2022 Free PSA, Serum 12.8% [facility] US SCREENING FOR AAAon 03-12 [facility] CBCDIF (EXTERNAL)on 10-10-19 22 BASO ABS 0.1 K/uL 0 - 0.2 K/uL [facility] Basophils/100 WBC (Bld) 1.2 % 0 - 1.5 % [facility] EOS ABS 0.2 K/uL 0.1 - 0.3 K/uL [facility] Eosinophils/100 WBC (Bld) 3.4 % Abnormal 1 - 3 % [facility] Hematocrit (Bld) [Volume fraction] 42.6 % 39 - 55 % [facility] Hemoglobin (Bld) [Mass/Vol] 14.5 g/dL 14 - 16.5 g/dL [facility] Lymphocytes (Bld) [#/Vol] 1.0 10*3/uL Abnormal 1.2 - 4 K/uL [facility] Lymphocytes/100 WBC (Bld) 21.9 % 20 - 30 % [facility] MCH (RBC) [Entitic mass] 32.0 pg 25.4 - 34.6 pg [facility] MCHC (RBC) [Mass/Vol] 34.0 g/dL 30 - 36 g/dL [facility] MCV (RBC) [Entitic vol] 94.2 fL 79 - 98 fL [facility] MONO ABS 0.5 K/uL 0 - 1 K/uL [facility] Monocytes/100 WBC (Bld) 10.2 % Abnormal 2 - 8 % [facility] NEUT ABS 2.8 K/uL 1.9 - 8 K/uL [facility] Neutrophils/100 WBC (Bld) 63.3 % 40 - 74 % [facility] Nucleated RBC (Bld) [#/Vol] 0.1 10*3/uL [facility] Platelet mean volume (Bld) [Entitic vol] 9.5 fL 7.4 - 10.4 fL [facility] Platelets (Bld) [#/Vol] 178 10*3/uL 140 - 440 K/uL [facility] RBC (Bld) [#/Vol] 4.52 10*6/uL 4 - 6 M/uL [facility] RDW 12.7 K/uL Abnormal 140 - 440 K/uL [facility] WBC (Bld) [#/Vol] 4.5 10*3/uL 3.9 - 11 K/uL [facility] CMP (EXTERNAL)on 10-09-2021 Albumin [Mass/Vol] 4.1 g/dL 3.2 - 4.6 gm/dL [facility] Alk Phos Total 63 U/L 45 - 117 U/L [facility] ALT [Catalytic activity/Vol] 41 U/L 12 - 78 U/L [facility] Anion gap [Moles/Vol] 17 mmol/L 10 - 20 mmol/L [facility] AST [Catalytic activity/Vol] 35 U/L 8 - 37 U/L [facility] Bili Total 1.0 mg/dL 0.2 - 1 mg/dL [facility] Calcium [Mass/Vol] 9.5 mg/dL 8.5 - 10.1 mg/dL [facility] Chloride [Moles/Vol] 105 mmol/L 98 - 107 MEQ/L [facility] CO2 [Moles/Vol] 24 mmol/L 21 - 32 MEQ/L [facility] Creatinine [Mass/Vol] 1.0 mg/dL 0.6 - 1.3 MG/DL [facility] GFR AFR AMER [facility] GFR/1.73 sq M.predicted among non-blacks MDRD (S/P/Bld) [Vol rate/Area] 79 mL/min/{1.73_m2} [facility] Magnesium.plasma/ Magnesium.RBC (Bld) [Molar ratio] 1.9 mg/dL 1.8 - 2.4 mg/dL [facility] Potassium [Moles/Vol] 4.0 mmol/L 3.5 - 5.1 mmol/L [facility] Protein [Mass/Vol] 7.2 g/dL 6.4 - 8.2 gm/dL [facility] Sodium [Moles/Vol] 142 mmol/L 136 - 145 mmol/L [facility] Urea nitrogen [Mass/Vol] 16 mg/dL 7 - 18 MG/DL [facility] HBA1C (OUTSIDE)on 10-09-2021 HbA1c (Bld) [Mass fraction] 5.5 % 3.6 - % [facility] LIPID PANEL (OUTSIDE)on Cholesterol [Mass/Vol] 168 mg/dL 135 - 200 mg/dL [facility] Cholesterol in HDL [Mass/Vol] 35 mg/dL 35 - 80 mg/dL [facility] Cholesterol in LDL [Mass/Vol] 129 mg/dL Abnormal 0 - 110 mg/dL [facility] LDL:HDL Ratio [facility] Non-HDL Cholesterol [facility] TC:HDL Ratio [facility] Triglyceride [Mass/Vol] 184 mg/dL Abnormal 0 - 150 mg/dL [facility] VLDL Cholesterol [facility] Laboratory - Chemistry and C hemistry - challengeon 10-09-2021 Glucose [Mass/Vol] 106 mg/dL 74 - 106 MG/DL [facility] T4 FREE/FREE THYROXon 2021 Free T4 [Mass/Vol] 1.22 ng/dL 0.86 - 1.52 ng/dL [facility] TSH (EXTERNAL)on 10-09-2021 TSH 1.01 IU/ml 0.2 - 5.6 IU/ml [facility] VITAMIN B12 BLOODon 10-10-19 Cobalamin (Vitamin B12) [Mass/Vol] 802 pg/mL 150 - 900 pg/mL [facility] Vital Signs Date Time Vital Sign Value Performing Clinician Faci maria my 03-23-2024 12:39-0400 Diastolic blood pressure 66 mm[Hg] Juan A Scanlon MD Work Phone: [facility] 03-23-2024 12:39-0400 Systolic blood pressure 137 mm[Hg] Juan A Scanlon MD Work Phone: [facility] 03-13-2024 09:06-0400 Diastolic blood pressure 78 mm[Hg] Juan A Scanlon MD Work Phone: [facility] 03-13-2024 09:06-0400 Systolic blood pressure 144 mm[Hg] Juan A Scanlon MD Work Phone: [facility] 03-13-2024 07:50-0400 Body height 176.5 cm Juan A Scanlon MD Work Phone: [facility] 03-13-2024 07:50-0400 Body mass index (BMI) [Ratio] 30.86 kg/m2 Juan A Scanlon MD Work Phone: [facility] 03-13-2024 07:50-0400 Body weight 96.16 kg Juan A Scanlon MD Work Phone: [facility] 03-13-2024 07:50-0400 Heart rate 80 /min Juan A Scanlon MD Work Phone: [facility] 03-13-2024 07:50-0400 Respiratory rate 16 /min Juan A Scanlon MD Work Phone: [facility] 03-10-2023 08:39-0400 Diastolic blood pressure 72 mm[Hg] Juan A Scanlon MD Work Phone: [facility] 03-10-2023 08:39-0400 Systolic blood pressure 137 mm[Hg] Juan A Scanlon MD Work Phone: [facility] 03-10-2023 08:08-0400 Body height 175.9 cm Juan A Scanlon MD Work Phone: [facility] 03-10-2023 08:08-0400 Body weight 94.8 kg Juan A Scanlon MD Work Phone: [facility] 03-10-2023 08:08-0400 Heart rate 64 /min Juan A Scanlon MD Work Phone: [facility] 03-10-2023 08:08-0400 Respiratory rate 16 /min Juan A Scanlon MD Work Phone: [facility] 03-23-2022 12:59-0400 Diastolic blood pressure 82 mm[Hg] Mi Nurse Work Phone: [facility] 03-23-2022 12:59-0400 Heart rate 89 /min Mi Nurse Work Phone: [facility] 03-23-2022 12:59-0400 Systolic blood pressure 140 mm[Hg] Mi Nurse Work Phone: [facility] 03-23-2022 12:52-0400 Diastolic blood pressure 81 mm[Hg] Juan A Scanlon MD Work Phone: [facility] 03-23-2022 12:52-0400 Systolic blood pressure 137 mm[Hg] Juan A Scanlon MD Work Phone: [facility] 03-09-2022 08:36-0400 Diastolic blood pressure 84 mm[Hg] Juan A Scanlon MD Work Phone: [facility] 03-09-2022 08:36-0400 Systolic blood pressure 160 mm[Hg] Juan A Scanlon MD Work Phone: [facility] 03-09-2022 07:59-0400 Body height 177.5 cm Juan A Scanlon MD Work Phone: [facility] 03-09-2022 07:59-0400 Body weight 97.07 kg Juan A Scanlon MD Work Phone: [facility] 03-09-2022 07:59-0400 Heart rate 83 /min Juan A Scanlon MD Work Phone: [facility] 03-09-2022 07:59-0400 Respiratory rate 12 /min Juan A Scanlon MD Work Phone: [facility] 03-09-2022 07:59-0400 SaO2% (BldA) [Mass fraction] 98 % Juan A Scanlon MD Work Phone: [facility] Encounters Encounter Date Encounter Type Care Provider Facility Start: 05-01-2024 End: 05-01-2024 Chart abstracting Juan A Scanlon MD Work Phone: [facility] Comment on above: Outside [id number] Ordered Start: 03-23-2024 End: 03-23-2024 ambulatory Juna A Scanlon MD Work Phone: [facility] Comment on above: blood pressure Start: 03-13-2024 End: 03-14-2024 Telephone encounter Juan A Scanoln MD Work Phone: [facility] Comment on above: Results Start: 03-13-2024 End: 03-13-2024 ambulatory JUAN A SCANLON Facility:[facility] Start: 03-13-2024 End: 03-13-2024 Patient encounter procedure Juan A Scanlon MD Work Phone: [facility] Comment on above: Medicare annual [facility] visit, subsequent (Primary Dx); Essential hypertension, benign; [...] Elevated LFTs; Hyperkalemia Start: 03-02-2024 End: 03-02-2024 ambulatory JUAN A SCANLON Facility:[facility] Start: 02-29-2024 End: 02-29-2024 Telephone encounter Juan A Scanlon MD Work Phone: [facility] Comment on above: Orders Start: 11-08-2023 Chart abstracting [facility] Comment on above: Consult Start: 10-28-2023 Chart abstracting Juan A strange MD Work Phone: [facility] Comment on above: Ext / Labs Start: 10-26-2023 Chart abstracting Rios stevens [facility] Comment on above: Results, Lab Start: 06-22-2023 Chart abstracting Juan A strange MD Work Phone: [facility] Comment on above: Outside Start: 06-01-2023 Chart abstracting Juan A strange MD Work Phone: [facility] Comment on above: Outside [id number] Ordered Start: 03-14-2023 Telephone encounter Juan A Scanlon MD Work Phone: [facility] Comment on above: Results Start: 03-11-2023 Telephone encounter Juan A Scanlon MD Work Phone: [facility] Comment on above: Results Start: 03-10-2023 End: 03-10-2023 Subsequent hospital visit by physician Miranda [facility] Work Phone: Radiology Comment on above: Mass of shoulder reg ion [R22.30] Start: 03-10-2023 End: 03-10-2023 Patient encounter procedure Juan A Scanlon MD Work Phone: [facility] Comment on above: Medicare annual well [...] abstracting Juan A strange MD [facility] Comment on above: outside imagina (Add endum to CT scan) Start: 10-18-2022 Chart abstracting Juan A strange MD Work Phone: [facility] Comment on above: Results Start: 09-26-2022 ambulatory Juan A monreal MD Work Phone: [facility] Start: 03-23-2022 Telephone encounter Juan A Scanlon MD Work Phone: [facility] Comment on above: Blood Pressure Start: 03-23-2022 End: 03-23-2022 Nursing evaluation of patient and report Mi Nurse Work Phone: [facility] Comment on above: Essential hypertensi on, benign (Primary Dx) Start: 03-15-2022 Telephone encounter Juan A Scanlon MD Work Phone: [facility] Comment on above: Results Start: 03-12-2022 End: 03-12-2022 Subsequent hospital visit by physician [facility] Work Phone: Radiology Comment on above: Screening for abdomi nal aortic aneurysm [Z13.6] Start: 03-09-2022 End: 03-09-2022 Patient encounter procedure Juan A Scanlon MD Work Phone: [facility] Comment on above: Medicare annual well [...] abstracting Juan A strange MD Work Phone: [facility] Comment on above: Outside Labs Results Start: 03-06-2021 Patient encounter procedure Juan A Scanlon MD Work Phone: [facility] Work Phone: Procedures Date Procedure Procedure Detail Performing Clinician Start: 05-01-2024 PSA screening [facility] Provi davis Start: 03-13-2024 Adult depression scr eening assessment [...] Provider Start: 10-09-2021 VITAMIN B12 BLOOD [facility] P rovider Start: 03-05-2021 Adult depression scr eening assessment Juan A Scanlon MD Work Phone: Start: 10-17-2014 Colonoscopy Juan A strange MD Work Phone: Plan of Treatment Date Care Activity Detail Author Start: 12-31-2032 Urine microalbumin profile DTaP,Tdap,Td Vaccine (4 - Td or Tdap) [facility] Start: 03-10-2028 Lipid 1996 panel - S elva or Plasma Lipid Screening [facility] Start: 03-10-2028 Lipid panel Lipid Screening [facility] Start: 03-10-2028 LIPID SCREEN LIPID SCREEN [facility] Start: 09-22-2027 LIPID SCREEN LIPID SCREEN [facility] Start: 03-13-2027 Diabetes Screening Diabetes Screenin g [facility] Start: 03-12-2027 LIPID SCREEN LIPID SCREEN [facility] Start: 01-26-2027 Urine microalbumin profile [facility] Start: 10-09-2026 LIPID SCREEN LIPID SCREEN [facility] Start: 03-10-2026 DIABETES SCREEN DIABETES SCREEN [facility] Start: 03-10-2026 Diabetes Screening Diabetes Screenin g [facility] Start: 09-21-2025 DIABETES SCREEN DIABETES SCREEN [facility] Start: 03-13-2025 Annual PCP Team Grooming Assistant jhonny Disease Visit Annual PCP Team Chronic Disease Visit [facility] Start: 03-13-2025 Anxiety Screening Anxiety Screening [facility] Start: 03-13-2025 Covid-19 Vaccine () Covid-19 Vaccine () [facility] Comment on above: Postponed from 03/11 (Currently Scheduled) Start: 03-13-2025 Covid-19 Vaccine () Covid-19 Vaccine () [facility] Comment on above: Postponed from 03/11 (Currently Scheduled) Start: 03-13-2025 Depression Screening Depression Scre ening [facility] Start: 03-13-2025 End: 03-13-2025 Patient encounter procedure 03/13/2025 8:00 AM EDT Office Visit [facility] [address] [place] [address] Juan A Scanlon MD [address] [place] [id number] Medicare wellness [facility] Comment on above: Medicare wellness Start: 03-12-2025 DIABETES SCREEN DIABETES SCREEN [facility] Start: 02-22-2025 End: 05-24-2025 25-hydroxyvitamin D3 [Mass/volume] in Serum or Plasma VITAMIN D 25 HYDROXY Lab Routine Vitamin D deficiency Expected: 02/22/2025, Expires: 05/24/2025 [place] Work Phone: Comment on above: Expected: 02/22/2025 , Expires: 05/24/2025 Start: 02-22-2025 End: 05-24-2025 Comprehensive metabolic 2000 panel - Serum or Plasma COMPREHENSIVE METABOLIC PANEL Lab Routine Essential hypertension, benign Hyperlipidemia, mixed Elevated blood sugar Expected: 02/22/2025, Expires: 05/24/2025 [facility] Comment on above: Expected: 02/22/2025 , Expires: 05/24/2025 Start: 02-22-2025 End: 05-24-2025 Hemoglobin A1c in Blood HEMOGLOBIN A1C Lab Routine Elevated blood sugar Expected: 02/22/2025, Expires: 05/24/2025 [facility] Comment on above: Expected: 02/22/2025 , Expires: 05/24/2025 Start: 02-22-2025 End: 05-24-2025 LIPID PANEL, NONFASTING LIPID PANEL, NONFASTING Lab Routine Essential hypertension, benign Hyperlipidemia, mixed Expected: 02/22/2025, Expires: 05/24/2025 [facility] Comment on above: Expected: 02/22/2025 , Expires: 05/24/2025 Start: 02-22-2025 End: 05-24-2025 Urinalysis complete panel - Urine URINALYSIS, WITH MICROSCOPIC Lab Routine Essential hypertension, benign Hyperlipidemia, mixed Expected: 02/22/2025, Expires: 05/24/2025 [facility] Comment on above: Expected: 02/22/2025 , Expires: 05/24/2025 Start: 01-07-2025 Influenza vaccination Influenza Vacc ine (#1) [facility] Comment on above: Postponed from 03/11 (Currently Scheduled) Start: 10-17-2024 Colonoscopy COLONOSCOPY [facility] Start: 10-17-2024 COLORECTAL CANCER SCREENING COLORECTAL CANCER SCREENING [facility] Start: 10-17-2024 Screening for malign ant neoplasm of colon [facility] Start: 10-09-2024 DIABETES SCREEN DIABETES SCREEN [facility] Start: 03-13-2024 End: 03-13-2024 Patient encounter procedure 03/13/2024 8:00 AM EDT Office Visit Family [facility] [address] [place], [place] [id number] Juan A Scanlon MD [address] [place], [place] [address] medicare wellness [facility] Comment on above: medicare wellness Start: 03-11-2024 Influenza vaccination C [facility] Start: 03-10-2024 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 DISEASE VISIT ANNUAL PCP TEAM CHRONIC DISEASE VISIT [facility] Start: 03-10-2024 BP CONTROLLED (<130/80) BP CONTROLLE D (<130/80) [facility] Start: 02-29-2024 End: 05-30-2024 25-hydroxyvitamin D3 [Mass/volume] in Serum or Plasma VITAMIN D 25 HYDROXY Lab Routine Vitamin D deficiency Expected: 02/29/2024, Expires: 05/30/2024 [facility] Comment on above: Expected: 02/29/2024 , Expires: 05/30/2024 Start: 02-29-2024 End: 05-30-2024 Comprehensive metabolic 2000 panel - Serum or Plasma COMPREHENSIVE METABOLIC PANEL Lab Routine Essential hypertension, benign Hyperlipidemia, mixed Expected: 02/29/2024, Expires: 05/30/2024 [place] Work Phone: Comment on above: Expected: 02/29/2024 , Expires: 05/30/2024 Start: 02-29-2024 End: 05-30-2024 Hemoglobin A1c in Blood HEMOGLOBIN A1C Lab Routine Elevated blood sugar Expected: 02/29/2024, Expires: 05/30/2024 [facility] Comment on above: Expected: 02/29/2024 , Expires: 05/30/2024 Start: 02-29-2024 End: 05-30-2024 LIPID PANEL, NONFASTING LIPID PANEL, NONFASTING Lab Routine Essential hypertension, benign Hyperlipidemia, mixed Expected: 02/29/2024, Expires: 05/30/2024 [facility] Comment on above: Expected: 02/29/2024 , Expires: 05/30/2024 Start: 02-29-2024 End: 05-30-2024 Urinalysis complete panel - Urine URINALYSIS, WITH MICROSCOPIC Lab Routine Essential hypertension, benign Hyperlipidemia, mixed Expected: 02/29/2024, Expires: 05/30/2024 [facility] Comment on above: Expected: 02/29/2024 , Expires: 05/30/2024 Start: 07-11-2023 Advance Directive Discussion Advance Directive Discussion [facility] Start: 07-11-2023 Behavioral Health Screening Behavioral Health Screening [facility] Start: 03-11-2023 Covid-19 Vaccine () Covid-19 Vaccine () [facility] Start: 03-11-2023 Influenza vaccination C [facility] Start: 03-10-2023 End: 05-10-2023 Urinalysis complete panel - Urine [place] Work Phone: Comment on above: Expected: 03/10/2023 , Expires: 05/10/2023 Start: 03-09-2023 Adult depression screening assessment DEPRESSION SCREENING [facility] Start: 03-09-2023 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 DISEASE VISIT ANNUAL PCP TEAM CHRONIC DISEASE VISIT [facility] Start: 07-11-2022 ADVANCE DIRECTIVE DISCUSSION ADVANCE DIRECTIVE DISCUSSION [facility] Start: 07-11-2022 DEPRESSION ASSESSMENT DEPRESSION ASS ESSMENT [facility] Start: 06-16-2022 COVID-19 VACCINE (5 - Pfizer risk series) COVID-19 VACCINE (5 - Pfizer risk series) [facility] Start: 03-11-2022 Influenza vaccination [facility] Start: 03-09-2022 End: 05-09-2022 25-hydroxyvitamin D3 [Mass/volume] in Serum or Plasma VITAMIN D 25 HYDROXY Lab Routine Vitamin D deficiency Expected: 03/09/2022, Expires: 05/09/2022 [place] Work Phone: Comment on above: Expected: 03/09/2022 , Expires: 05/09/2022 Start: 03-09-2022 End: 05-09-2022 CBC W Auto Differential panel - Blood CBC + DIFF Lab Routine Medication management Expected: 03/09/2022, Expires: 05/09/2022 [place] Work Phone: Comment on above: Expected: 03/09/2022 , Expires: 05/09/2022 Start: 03-09-2022 End: 05-09-2022 Comprehensive metabolic 2000 panel - Serum or Plasma COMP METABOLIC PANEL Lab Routine Essential hypertension, benign Hyperlipidemia, mixed Expected: 03/09/2022, Expires: 05/09/2022 [place] Work Phone: Comment on above: Expected: 03/09/2022 , Expires: 05/09/2022 Start: 03-09-2022 End: 05-09-2022 LIPID PANEL, NONFASTING LIPID PANEL, NONFASTING Lab Routine Essential hypertension, benign Hyperlipidemia, mixed Expected: 03/09/2022, Expires: 05/09/2022 [place] Work Phone: Comment on above: Expected: 03/09/2022 , Expires: 05/09/2022 Start: 03-09-2022 End: 05-09-2022 Prostate Specific Ag Free [Mass/volume] in Serum or Plasma PSA FREE Lab Routine Elevated PSA Expected: 03/09/2022, Expires: 05/09/2022 [place] Work Phone: Comment on above: Expected: 03/09/2022 , Expires: 05/09/2022 Start: 03-09-2022 End: 05-09-2022 Urinalysis complete panel - Urine URINALYSIS, WITH MICROSCOPIC Lab Routine Essential hypertension, benign Hyperlipidemia, mixed Expected: 03/09/2022, Expires: 05/09/2022 [place] Work Phone: Comment on above: Expected: 03/09/2022 , Expires: 05/09/2022 Start: 03-06-2022 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 DISEASE VISIT ANNUAL PCP TEAM CHRONIC DISEASE VISIT [facility] Start: 03-05-2022 Adult depression screening assessment DEPRESSION SCREENING [facility] Start: 08-15-2021 COVID-19 VACCINE (4 - Booster for Pfizer series) COVID-19 VACCINE (4 - Booster for Pfizer series) [facility] Start: 07-11-2021 ADVANCE DIRECTIVE DISCUSSION ADVANCE DIRECTIVE DISCUSSION [facility] Start: 06-09-2021 COVID-19 VACCINE (4 - Booster for Pfizer series) COVID-19 VACCINE (4 - Booster for Pfizer series) [facility] Start: 02-15-2021 COVID-19 VACCINE (3 - Booster for Pfizer series) COVID-19 VACCINE (3 - Booster for Pfizer series) [facility] Start: 11-16-2017 SHINGRIX VACCINE (2 of 3) SHINGRIX VACCINE (2 of 3) [facility] Start: 2007 RSV Vaccine (1 - 1-d ose 60+ series) RSV Vaccine (1 - 1-dose 60+ series) [facility] Start: 11-08-1992 COLOGUARD (FIT-DNA) COLOGUARD (FIT-D NA) [facility] Start: 11-08-[address] COLONOGRAPHY [facility] Start: 11-08-1992 FECAL OCCULT BLOOD FECAL OCCULT BLOO D [facility] Start: 11-08-1992 Screening for malign ant neoplasm of colon [facility] Start: 11-08-1992 SIGMOIDOSCOPY SIGMOIDOSCOPY [facility] Start: 11-08-1965 Anxiety Screening Anxiety Screening [facility] Start: 11-08-1965 BP CONTROLLED (<130/80) BP CONTROLLE D (<130/80) [facility] Start: 11-08-1965 Depression Screening Depression Scre ening [facility] Start: 1945 ABDOMINAL AORTIC ANEURYSM SCREENING ABDOMINAL AORTIC ANEURYSM SCREENING [facility] End: 04-07-2023 Us abdominal aorta real time screen study aaa US SCREENING FOR AAA Radiology Routine Screening for abdominal aortic aneurysm Ex-smoker 1 Occurrences starting 03/09/2022 until 04/07/2023 [place] Work Phone: Comment on above: 1 Occurrences starti ng 03/09/2022 until 04/07/2023 End: 04-08-2024 XR SHOULDER GENERAL 3V OR MORE AP/TRUE AP/OTHER RIGHT XR SHOULDER GENERAL 3V OR MORE AP/TRUE AP/OTHER RIGHT Radiology Routine Mass of shoulder region 1 Occurrences starting 03/10/2023 until 04/08/2024 [place] Work Phone: Comment on above: 1 Occurrences starti ng 03/10/2023 until 04/08/2024 XR SHOULDER GENERAL 3V OR MORE AP/TRUE AP/OTHER RIGHT XR SHOULDER GENERAL 3V OR MORE AP/TRUE AP/OTHER RIGHT Radiology Routine Mass of shoulder region 03/10/2023 9:32 AM EDT [place] Work Phone: [facility] Immunizations Immunization Date Immunization Notes Care Provider Ram[facility] 04-14-2023 influenza virus vacc ine, unspecified formulation Juan A Scanlon MD Work Phone: [facility] 04-21-2022 influenza virus vacc ine, unspecified formulation Juan A Scanlon MD Work Phone: [facility] 04-14-2021 COVID-19 vaccine, ag e 12+ yr (PFIZER-BIONTECH - PURPLE TOP) Juan A Scanlon MD Work Phone: [facility] Work Phone: 10-17-2020 pneumococcal polysaccharide vaccine, 23 valent Juan A Scanlon MD Work Phone: [facility] Work Phone: 09-15-2020 COVID-19 vaccine, ag e 12+ yr (PFIZER-BIONTECH - PURPLE TOP) Juan A Scanlon MD Work Phone: [facility] 08-28-2020 COVID-19 vaccine, ag e 12+ yr ([employer] - PURPLE TOP) Juan A Scanlon MD Work Phone: [facility] 04-19-2019 pneumococcal conjuga te vaccine, 13 valent Juan A Scanlon MD Work Phone: [facility] Work Phone: 11-28-2017 zoster vaccine recombinant Juan A Scanlon MD Work Phone: [facility] Work Phone: 09-21-2017 zoster vaccine recombinant Juan A Scanlon MD Work Phone: [facility] Work Phone: 09-21-2017 zoster vaccine, live Juan A Scanlon MD Work Phone: [facility] 01-26-2017 tetanus toxoid, redu toña diphtheria toxoid, and acellular pertussis vaccine, adsorbed Juan A Scanlon MD Work Phone: [facility] 08-03-2012 diphtheria, tetanus toxoids and acellular pertussis vaccine, unspecified formulation Juan A Scanlon MD Work Phone: [facility] Work Phone: Payers Date Payer Category Payer Private Health Insurance [facility] AAR SUPPLEMENT [id number] 2013-Present [phone] [address] [place] [address] Indemnity [id number] 2013 Private Health Insurance [facility] AARP SUPPLEMENT [id number] 2013-Present [phone] [address] [place] [address] Indemnity [id number] 2013 Unknown [id number] 2012 Medicare MEDICARE MEDICAR E A AND B [id number] 2012-Present [phone] [place] [address] Medicare [id number] 2012 Medicare MEDICARE MEDICAR E A AND B [id number] 2012-Present [phone] [place] [address] Medicare [id number] 2012 Medicare [id number] Social History Date Type Detail Facility Start: 03-09-2022 End: 03-13-2024 Tobacco smoking status NHIS Ex-smoker [facility] Start: 07-11-1975 End: 07-11-1990 History of tobacco use Current smoker [facility] Start: 03-06-2021 End: 03-13-2024 Alcohol intake Current drinker of alcohol (finding) [facility] Start: 03-05-2021 End: 03-04-2022 History SDOH Alcohol Frequency 2 [facility] Start: 03-05-2021 End: 03-04-2022 History SDOH Alcohol Std Drinks 1 [facility] Start: 09-20-2013 History SDOH Alcohol Comment very little [facility] Start: 03-05-2021 History SDOH Social Connections Phone 5 [facility] Start: 03-05-2021 History SDOH Social Connections Get Together 4 [facility] Start: 03-05-2021 History SDOH Social Connections Anabaptist 3 [facility] Start: 03-05-2021 Education 15 [facility] Start: 1945 Sex Assigned At Not on file C [facility] Start: 07-11-1975 End: 07-11-1990 History of tobacco use Cigarette Smoker [facility] Work Phone: Start: 03-09-2022 End: 03-03-2023 Cigarettes smoked current (pack per day) - Reported 1 [facility] Start: 03-09-2022 End: 03-13-2024 Tobacco use and exposure Smokeless tobacco non-user [facility] Work Phone: Start: 02-28-2022 End: 03-10-2022 Exposure to SARS-CoV-2 (event) Unable to assess [facility] Work Phone: Start: 03-03-2023 End: 03-13-2024 Social connection and isolation panel [facility] Do you belong to any clubs or organizations such as sabianism groups, unions, fraternal or athletic groups, or school groups? Yes [facility] Are you now , , , , never or living with a partner? [facility] How often to you hav e a drink containing alcohol? Monthly or less [facility] How many standard dr inks containing alcohol do you have on a typical day? 1 or 2 [facility] How often do you hav e 6 or more drinks on 1 occasion? Never [facility] How hard is it for y ou to pay for the very basics like food, housing, medical care, and heating Not hard at all [facility] Do you feel stress - tense, restless, nervous, or anxious, or unable to sleep at night because your mind is troubled all the time - these days [OSQ] Not at all [facility] (I/We) worried whe er (my/our) food would run out before (I/we) got money to buy more. Never true [facility] In the past 12 month s, was there a time when you were not able to pay the mortgage or rent on time? No [facility] Clinical Notes 10-02-2018 to 05-01-2024 Sarah Elizabeth LPN - 05/01/2024 10:26 AM Juan A Griffin MD - 03/23/2024 12:39 PM EDTTelephone Encounter - Leilani Bhatia MA - 03/23/2024 10:12 AM EDTPatient Instructions Note Date & Type Note Facility 05-01-2024 Note HNO ID: [id number] Author: SARAH ELIZABETH LPN Service: ? Author Type: LICENSED NURSE Type: Progress Notes Filed: 05/01/2024 10:26 Note Text: Scan on 05/01/2024 8:41 AM by Provider, External, PA-C: Chemistry [facility] 05-01-2024 History of Present illness Narrative Scan on 05/01/2024 8:41 AM by Provider, VIRI Ramirez: Chemistry documented in this encounter [facility] 03-23-2024 Note HNO ID: [id number] Author: JUAN A SCANLON MD Service: ? Author Type: Physician Type: Progress Notes Filed: 03/23/2024 12:39 Note Text: BP 134/66 [facility] 03-23-2024 History of Present illness Narrative BP 134/66 documented in this encounter [facility] 03-23-2024 Telephone encounter Note See pt Cognusehart message regarding her BP readings. Leilani Bhatia MA [facility] 03-23-2024 Miscellaneous Notes See pt mychart message regarding her BP readings. Leilani Bhatia MA documented in this encounter [facility] 03-14-2024 Miscellaneous Notes Patient notified and voiced understanding. Rios Austin MA Let patient know his repeat liver functions and potassium were normal. documented in this encounter [facility] 03-14-2024 Telephone encounter Note Patient notified and voiced understanding. Rios Austin MA [facility] 09-03-2024 Telephone encounter Note Let patient know his repeat liver functions and potassium were normal. [facility] 03-13-2024 Nurse Note Ame BP Average 144/78 150/85 148/80 146/77 144/80 145/79 Patient checks his BP at home. He is going to check this week and let us know his readings. Rios Austin MA [facility] 03-13-2024 Nurse Note Ame BP Average 144/78 150/85 148/80 146/77 144/80 145/79 Patient checks his BP at home. He is going to check this week and let us know his readings. Rios Austin MA documented in this encounter [facility] 03-13-2024 Instructions Juan A Scanlon MD - [...] review all the medicines you take, even [id number] medicines. As you get older, the way [...] certain medical conditions. documented in this encounter [facility] 03-13-2024 History of Present illness Narrative Images [...] Controlled (<130/80) due on 03/10/2024 Covid-19 Vaccine( - 2022- season) due on 03/11/2024 Influenza Vaccine(1) due [...] Negative Ketones, Urine Negative Negative Negative Specific Seltzer, Ur 1.005 - 1.030 1.021 1.020 Hemoglobin/Blood,Ur [...] which included preparing to see the patient, [id number] patient care, completing clinical documentation, performing a medically appropriate examination, counseling and educating the patient/family/caregiver and ordering medications, tests, or procedures. Juan A Scanlon MD documented in this encounter [facility] 03-13-2024 Note HNO ID: [id number] Author: JUAN A SCALNON MD Service: ? 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 Noted on Brain MRI in [...] by mouth on (more content not included)... [facility] 02-29-2024 Telephone encounter Note Spoke with patient and he wanted done here at our office. Patient notified orders are ready. Rios Austin MA [facility] 02-29-2024 Miscellaneous Notes Spoke with patient and he wanted done here at our office. Patient notified orders are ready. Rios Austin MA Labs ready to be faxed. Patient asking if he needs lab work done prior to his Wellness visit on 03/13. If so [facility]. Please advise. documented in this encounter [facility] 02-29-2024 Telephone encounter Note Labs ready to be faxed. [facility] 02-29-2024 Telephone encounter Note Patient asking if he needs lab work done prior to his Wellness visit on 03/13. If so [facility] Please advise[facility] 11-08-2023 Note HNO ID: [id number] Author: RIOS AUSTIN MA Service: ? Author Type: Bail Bonding Agent Type: Progress Notes Filed: 11/08/2023 13:46 Note Text: Scan on 11/03/2023 4:44 PM by ProviderAshley PA-C: Consultation - Rios Austin MA [facility] 11-08-2023 History of Present illness Narrative Scan on 11/03/2023 4:44 PM by Ashley Fernandez PA-C: Consultation - Rios Austin MA documented in this encounter [facility] 10-28-2023 Note HNO ID: [id number] Author: SOHEILA ZURITA LPN Service: ? Author Type: LICENSED NURSE Type: Progress Notes Filed: 10/28/2023 12:27 Note Text: Scan on 10/28/2023 9:34 AM by Ashley Fernandez PA-C: Miscellaneous Lab Soheila Zurita LPN [facility] 10-28-2023 History of Present illness Narrative Scan on 10/28/2023 9:34 AM by Ashley Fernandez PA-C: Miscellaneous Lab Soheila Zurita LPN documented in this encounter [facility] 10-26-2023 Note HNO ID: [id number] Author: RIOS AUSTIN MA Service: ? Author Type: Bail Bonding Agent Type: Progress Notes Filed: 10/26/2023 16:13 Note Text: Scan on 10/26/2023 9:34 AM by Ashley Fernandez PA-C: Ray Austin MA [facility] 10-26-2023 History of Present illness Narrative Scan on 10/26/2023 9:34 AM by Ashley Fernandez PA-C: Ray Austin MA documented in this encounter [facility] 08-02-2023 Note HNO ID: [id number] Author: SARAH ELIZABETH LPN Service: ? Author Type: LICENSED NURSE Type: Progress Notes Filed: 08/02/2023 14:39 Note Text: Scan on 08/02/2023 1:59 PM by Ashley Fernandez PA-C: Consultation - [facility] 07-27-2023 Note HNO ID: [id number] Author: SARAH ELIZABETH LPN Service: ? Author Type: LICENSED NURSE Type: Progress Notes Filed: 07/27/2023 11:25 Note Text: Scan on 07/27/2023 9:18 AM by Ashley Fernandez PA-C: Chemistry [facility] 06-22-2023 Note HNO ID: [id number] Author: Mallika Olivarez LPN Service: ? Author Type: ? Type: Progress Notes Filed: 06/22/2023 1:26 PM Note Text: Scan on 06/21/2023 3:21 PM by Ashley Fernandez PA-C: Consultation - [facility] 06-22-2023 History of Present illness Narrative Scan on 06/21/2023 3:21 PM by Ashley Fernandez PA-C: Consultation - documented in this encounter [facility] 06-08-2023 Note HNO ID: [id number] Author: Sarah Elizabeth LPN Service: ? Author Type: ? Type: Progress Notes Filed: 06/08/2023 1:08 PM Note Text: Scan on 06/08/2023 7:34 AM by Ashley Fernandez PA-C [facility] 06-01-2023 Note HNO ID: [id number] Author: Sarah Elizabeth LPN Service: ? Author Type: ? Type: Progress Notes Filed: 06/01/2023 12:49 PM Note Text: Scan on 05/31/2023 7:34 AM by Ashley Fernandez PA-C: Hematology [facility] 06-01-2023 History of Present illness Narrative Scan on 05/31/2023 7:34 AM by Ashley Fernandez PA-C: Hematology documented in this encounter [facility] 03-15-2023 Miscellaneous Notes Pt notified. Pt will think about this and call back if interested. Leilani Bhatia Ma Let patient know the mas on the shoulder is not of a bony origin and is soft tissue. I can send him to plastics in [place] for removal if interested? documented in this encounter [facility] 03-11-2023 Miscellaneous Notes Pt notified. Copy of [...] [facility]. documented in this encounter [facility] 03-10-2023 History of Present illness Narrative Medicare [...] of current specialists seen: Dr. Swan. (Urology) Jessica Blankenship (derm) CT provider End of Live Planning discussed including [...] which included preparing to see the patient, [id number] patient care, completing clinical documentation, performing a medically appropriate examination, counseling and educating the patient/family/caregiver and ordering medications, tests, or procedures. Juna A Scanlon MD documented in this encounter [facility] 11-11-2022 History of Present illness Narrative Scan on 11/10/2022 6:37 PM by External Provider, VIRI: CT Scan documented in this encounter [facility] 10-18-2022 History of Present illness Narrative Scan on 10/15/2022 9:09 AM by External Provider: Chemistry Scan on 10/16/2022 8:57 AM by External Provider: CT Scan Rios Austin MA documented in this encounter [facility] 03-23-2022 Miscellaneous Notes Patient notified and verbalized [...] review by PCP. documented in this encounter [facility] 03-23-2022 History of Present illness Narrative Manual [...] review by PCP. documented in this encounter [facility] 03-16-2022 Miscellaneous Notes Pt notified of same. [...] Pt is [facility] to see someone at [facility]. Please let pt know when referral [...] consult to urology. documented in this encounter [facility] 03-12-2022 History of Present illness Narrative Radiology [...] IV DATA: Not applicable SIGNED BY: RT Jame(R) March 12, 2022 8:01 AM documented in this encounter [facility] 03-09-2022 Nurse Note VISUAL ACUITY: Today's exam: Vision Correction? No vision correction: RIGHT EYE: 20/25 LEFT EYE: 20/ 20 BOTH EYES: 20/15 documented in this encounter [facility] 03-09-2022 History of Present illness Narrative Medicare [...] specialists seen: Aisha (Urology) Jessica Blankenship (derm) CT provider End of Live Planning discussed including [...] Procedure Laterality Date COLONOSCOP W/ OR W/O [facility] SPEC 10/17/2014 Colonoscopy EGD W/O OR W/BRUSH/WASH [...] which included preparing to see the patient, [id number] patient care, completing clinical documentation, performing a medically appropriate examination, counseling and educating the patient/family/caregiver and ordering medications, tests, or procedures. Juan A Scanlon MD documented in this encounter [facility] 10-02-2018 History of Past i llness Narrative Problem Noted Date Resolved Date Skin ulcer of finger, limited to breakdown of sk in 10/02/2018 02/25/2020 Left-sided low back pain with left-sided sciatic a 09/23/2015 09/28/2016 HYDROCELE OTHER SPECIFIC 06/20/2007 017 UMBILICAL HERNIA W/O GANGRENE/OBSTRUCTION 200608/19/2014 INGUINAL HERNIA, UNILAT, RECURRENT W/O GANGRENE/ OBSTRUCTION 03/22/2007 08/19/2014 documented as of this encounter (statuses as of 10/12/2021) [facility] History of Past illness Narrative* Problem Noted Date Resolved Date Skin ulcer of finger, limited to breakdown of sk in 10/02/2018 02/25/2020 Left-sided low back pain with left-sided sciatic a 09/23/2015 09/28/2016 HYDROCELE OTHER SPECIFIC 06/20/2007 017 UMBILICAL HERNIA W/O GANGRENE/OBSTRUCTION 200608/19/2014 INGUINAL HERNIA, UNILAT, RECURRENT W/O GANGRENE/ OBSTRUCTION 03/22/2007 08/19/2014 documented as of this encounter (statuses as of 03/10/2022) [facility] History of Past illness Narrative* Problem Noted Date Resolved Date Skin ulcer of finger, limited to breakdown of sk in 10/02/2018 02/25/2020 Left-sided low back pain with left-sided sciatic a 09/23/2015 09/28/2016 HYDROCELE OTHER SPECIFIC 06/20/2007 017 UMBILICAL HERNIA W/O GANGRENE/OBSTRUCTION 200608/19/2014 INGUINAL HERNIA, UNILAT, RECURRENT W/O GANGRENE/ OBSTRUCTION 03/22/2007 08/19/2014 documented as of this encounter (statuses as of 03/13/2022) [facility] History of Past illness Narrative* Problem Noted Date Resolved Date Skin ulcer of finger, limited to breakdown of sk in 10/02/2018 02/25/2020 Left-sided low back pain with left-sided sciatic a 09/23/2015 09/28/2016 HYDROCELE OTHER SPECIFIC 06/20/2007 017 UMBILICAL HERNIA W/O GANGRENE/OBSTRUCTION 200608/19/2014 INGUINAL HERNIA, UNILAT, RECURRENT W/O GANGRENE/ OBSTRUCTION 03/22/2007 08/19/2014 documented as of this encounter (statuses as of 03/16/2022) [facility] History of Past illness Narrative* Problem Noted Date Resolved Date Skin ulcer of finger, limited to breakdown of sk in 10/02/2018 02/25/2020 Left-sided low back pain with left-sided sciatic a 09/23/2015 09/28/2016 HYDROCELE OTHER SPECIFIC 06/20/2007 017 UMBILICAL HERNIA W/O GANGRENE/OBSTRUCTION 200608/19/2014 INGUINAL HERNIA, UNILAT, RECURRENT W/O GANGRENE/ OBSTRUCTION 03/22/2007 08/19/2014 documented as of this encounter (statuses as of 03/23/2022) [facility] History of Past illness Narrative* Problem Noted Date Resolved Date Skin ulcer of finger, limited to breakdown of sk in 10/02/2018 02/25/2020 Left-sided low back pain with left-sided sciatic a 09/23/2015 09/28/2016 HYDROCELE OTHER SPECIFIC 06/20/2007 017 UMBILICAL HERNIA W/O GANGRENE/OBSTRUCTION 200608/19/2014 INGUINAL HERNIA, UNILAT, RECURRENT W/O GANGRENE/ OBSTRUCTION 03/22/2007 08/19/2014 documented as of this encounter (statuses as of 03/23/2022) [facility] History of Past illness Narrative* Problem Noted Date Resolved Date Skin ulcer of finger, limited to breakdown of sk in 10/02/2018 02/25/2020 Left-sided low back pain with left-sided sciatic a 09/23/2015 09/28/2016 HYDROCELE OTHER SPECIFIC 06/20/2007 017 UMBILICAL HERNIA W/O GANGRENE/OBSTRUCTION 200608/19/2014 INGUINAL HERNIA, UNILAT, RECURRENT W/O GANGRENE/ OBSTRUCTION 03/22/2007 08/19/2014 documented as of this encounter (statuses as of 09/26/2022) [facility] History of Past illness Narrative* Problem Noted Date Resolved Date Skin ulcer of finger, limited to breakdown of sk in 10/02/2018 02/25/2020 Left-sided low back pain with left-sided sciatic a 09/23/2015 09/28/2016 HYDROCELE OTHER SPECIFIC 06/20/2007 017 UMBILICAL HERNIA W/O GANGRENE/OBSTRUCTION 200608/19/2014 INGUINAL HERNIA, UNILAT, RECURRENT W/O GANGRENE/ OBSTRUCTION 03/22/2007 08/19/2014 documented as of this encounter (statuses as of 10/19/2022) [facility] History of Past illness Narrative* Problem Noted Date Resolved Date Skin ulcer of finger, limited to breakdown of sk in 10/02/2018 02/25/2020 Left-sided low back pain with left-sided sciatic a 09/23/2015 09/28/2016 HYDROCELE OTHER SPECIFIC 06/20/2007 017 UMBILICAL HERNIA W/O GANGRENE/OBSTRUCTION 200608/19/2014 INGUINAL HERNIA, UNILAT, RECURRENT W/O GANGRENE/ OBSTRUCTION 03/22/2007 08/19/2014 documented as of this encounter (statuses as of 11/14/2022) [facility] History of Past illness Narrative* Problem Noted Date Diagnosed Date Resolved Date Skin ulcer of finger, limite d to breakdown of skin 10/02/2018 02/25/2020 Left-sided low back pain wit h left-sided sciatica 09/23/2015 09/28/2016 HYDROCELE OTHER SPECIFIC 06/20/200703/2017 UMBILICAL HERNIA W/O GANGRENE/OBSTRUCTION 03/22/2007 08/19/2014 INGUINAL HERNIA, UNILAT, REC URRENT W/O GANGRENE/OBSTRUCTION 03/22/2007 08/19/2014 documented as of this encounter (statuses as of 03/10/2023) [facility] History of Past illness Narrative* Problem Noted Date Diagnosed Date Resolved Date Skin ulcer of finger, limite d to breakdown of skin 10/02/2018 02/25/2020 Left-sided low back pain wit h left-sided sciatica 09/23/2015 09/28/2016 HYDROCELE OTHER SPECIFIC 06/20/200703/2017 UMBILICAL HERNIA W/O GANGRENE/OBSTRUCTION 03/22/2007 08/19/2014 INGUINAL HERNIA, UNILAT, REC URRENT W/O GANGRENE/OBSTRUCTION 03/22/2007 08/19/2014 documented as of this encounter (statuses as of 03/11/2023) [facility] History of Past illness Narrative* Problem Noted Date Diagnosed Date Resolved Date Skin ulcer of finger, limite d to breakdown of skin 10/02/2018 02/25/2020 Left-sided low back pain wit h left-sided sciatica 09/23/2015 09/28/2016 HYDROCELE OTHER SPECIFIC 06/20/200703/2017 UMBILICAL HERNIA W/O GANGRENE/OBSTRUCTION 03/22/2007 08/19/2014 INGUINAL HERNIA, UNILAT, REC URRENT W/O GANGRENE/OBSTRUCTION 03/22/2007 08/19/2014 documented as of this encounter (statuses as of 03/15/2023) [facility] History of Past illness Narrative* Problem Noted Date Diagnosed Date Resolved Date Skin ulcer of finger, limite d to breakdown of skin 10/02/2018 02/25/2020 Left-sided low back pain wit h left-sided sciatica 09/23/2015 09/28/2016 HYDROCELE OTHER SPECIFIC 06/20/200703/2017 UMBILICAL HERNIA W/O GANGRENE/OBSTRUCTION 03/22/2007 08/19/2014 INGUINAL HERNIA, UNILAT, REC URRENT W/O GANGRENE/OBSTRUCTION 03/22/2007 08/19/2014 documented as of this encounter (statuses as of 06/01/2023) [facility] History of Past illness Narrative* Problem Noted Date Diagnosed Date Resolved Date Skin ulcer of finger, limite d to breakdown of skin 10/02/2018 02/25/2020 Left-sided low back pain wit h left-sided sciatica 09/23/2015 09/28/2016 HYDROCELE OTHER SPECIFIC 06/20/200703/2017 UMBILICAL HERNIA W/O GANGRENE/OBSTRUCTION 03/22/2007 08/19/2014 INGUINAL HERNIA, UNILAT, REC URRENT W/O GANGRENE/OBSTRUCTION 03/22/2007 08/19/2014 documented as of this encounter (statuses as of 06/23/2023) [facility] History of Past illness Narrative* Problem Noted Date Diagnosed Date Resolved Date Skin ulcer of finger, limite d to breakdown of skin 10/02/2018 02/25/2020 Left-sided low back pain wit h left-sided sciatica 09/23/2015 09/28/2016 HYDROCELE OTHER SPECIFIC 06/20/200703/2017 UMBILICAL HERNIA W/O GANGRENE/OBSTRUCTION 03/22/2007 08/19/2014 INGUINAL HERNIA, UNILAT, REC URRENT W/O GANGRENE/OBSTRUCTION 03/22/2007 08/19/2014 documented as of this encounter (statuses as of 10/27/2023) [facility] History of Past illness Narrative* Problem Noted Date Diagnosed Date Resolved Date Skin ulcer of finger, limite d to breakdown of skin 10/02/2018 02/25/2020 Left-sided low back pain wit h left-sided sciatica 09/23/2015 09/28/2016 HYDROCELE OTHER SPECIFIC 06/20/200703/2017 UMBILICAL HERNIA W/O GANGRENE/OBSTRUCTION 03/22/2007 08/19/2014 INGUINAL HERNIA, UNILAT, REC URRENT W/O GANGRENE/OBSTRUCTION 03/22/2007 08/19/2014 documented as of this encounter (statuses as of 10/28/2023) [facility] note* Diagnosis Medicare annual wellness visit, subsequent- Primary Routine general medical examination at a health care facility Essential hypertension, benign Hyperlipidemia, mixed Mixed hyperlipidemia [...] of other medications documented in this encounter [facility] note* Diagnosis Screening for abdominal aortic aneurysm Screening for other and unspecified cardiovascular conditions Ex-smoker Personal history of tobacco use, presenting hazards to health [facility] [place] Diagnosis Elevated PSA- Primary Elevated prostate specific antigen (PSA) documented in this encounter [facility] note* Diagnosis Essential hypertension, benign- Primary [facility] [place] [facility] Diagnosis Medicare annual wellness visit, subsequent- Primary Routine general medical examination at a health care [facility] Essential hypertension, benign Hyperlipidemia, mixed Mixed hyperlipidemia [...] to shoulder joint documented in this encounter [facility] note* Diagnosis Essential hypertension, benign- Primary Hyperlipidemia, mixed Mixed hyperlipidemia Gastroesophageal reflux disease without esophagitis Esophageal reflux Vitamin D deficiency Unspecified vitamin D deficiency Elevated blood sugar Other abnormal glucose documented in this encounter [facility] note* Diagnosis Medicare annual wellness visit, subsequent- Primary Routine general medical [facility] a [facility] Essential hypertension, benign Hyperlipidemia, mixed Mixed hyperlipidemia [...] chemistry Hyperkalemia Hyperpotassemia documented in this encounter [facility] note* Diagnosis Mass of shoulder region Other symptoms referable to shoulder joint documented in this encounter [facility] for referral (narrative)* Diagnostic Procedure Only (Routine) - Authorized Specialty Diagnoses / Procedures Referred By Mellisa ríos Referred To Contact US IMAGING Diagnoses Screening for abdominal aortic aneurysm Ex-smoker Procedures US SCREENING FOR AAA (2017) US ABDOMINAL AORTA REAL TIME SCREEN STUDY AAA Juan A Scanlon MD [address] [place] [address] Us Imaging Referral ID Status Reason Start Date Expiration Date Visits Requested Visits Authorized [id number] Authorized Auto-Generat ed Referral 03/09/2022 04/07/2023 1 1 [facility] for referral (narrative)* Diagnostic Procedure Only (Routine) - Closed Specialty Diagnoses / Procedures Referred By Mellisa ríos Referred To Contact US IMAGING Diagnoses Screening for abdominal aortic aneurysm Ex-smoker Procedures US SCREENING FOR AAA (2017) US ABDOMINAL AORTA REAL TIME SCREEN STUDY AAA Juan A Scanlon MD [address] [place] [address] Us Imaging Referral ID Status Reason Start Date Expiration Date V isits Requested Visits Authorized [id number] Closed Auto-Generate d Referral 03/09/2022 04/07/2023 1 1 [facility] for referral (narrative)* Diagnostic Procedure Only (Routine) - Closed Specialty Diagnoses / Procedures Referred By Mellisa ríos Referred To Contact XR IMAGING Diagnoses Mass of shoulder region Procedures XR SHOULDER GENERAL 3V OR MORE AP/TRUE AP/OTHER RIGHT RADEX SHOULDER COMPLETE MINIMUM 2 VIEWS Juan A Scanlon MD [address] [place] [address] [place] [address] Referral ID Status Reason Start Date Expiration Date V isits Requested Visits Authorized [id number] Closed Auto-Generate d Referral 03/10/2023 04/08/2024 1 1 [facility] for referral (narrative)* Diagnostic Procedure Only (Routine) - Closed Specialty Diagnoses / Procedures Referred By Mellisa ríos Referred To Contact XR IMAGING Diagnoses Mass of shoulder region Procedures XR SHOULDER GENERAL 3V OR MORE AP/TRUE AP/OTHER RIGHT RADEX SHOULDER COMPLETE MINIMUM 2 VIEWS Juan A Scanlon MD [address] [place] [address] [place] [address] Referral ID Status Reason Start Date Expiration Date V isits Requested Visits Authorized [id number] Closed Auto-Generate d Referral 03/10/2023 04/08/2024 1 1 [facility] for visit Narrative* Diagnostic Procedure Only (Routine) - Closed Specialty Diagnoses / Procedures Referred By Contac t Referred To Contact XR IMAGING Diagnoses Mass of shoulder region Procedures XR SHOULDER GENERAL 3V OR MORE AP/TRUE AP/OTHER RIGHT RADEX SHOULDER COMPLETE MINIMUM 2 VIEWS Juan A Scanlon MD [address] [place] [address] [place] [address] Referral ID Status Reason Start Date Expiration Date V isits Requested Visits Authorized [id number] Closed Auto-Generate d Referral 03/10/2023 04/08/2024 1 1 [facility] Advance Directives No Advanced Directives Records FoundDocuments on File Type Date Recorded Patient Coordinator Volunteer Services Expl anation Advance Directive(s) 05/28/2016 11:59 AM Documents on File Type Date Recorded Patient Coordinator Volunteer Services Expl anation Advance Directive(s) 05/28/2016 11:59 AM Reason for Referral Specialty Diagnoses / Procedures Referred By Contac t Referred To Contact Urology Diagnoses Elevated PSA Procedures CONSULT TO UROLOGY OFFICE/OUTPATIENT NEW HIGH MDM 60-74 MINUTES Nancy Park PA-C [address] [place] [address] Referral ID Status Reason Start Date Expiration Date Visits Requested Visits Authorized [id number] Authorized PCP Requested Referral 03/16/2022 03/16/2023 1 [...] or prosecute any alcohol or drug abuse patient.[facility] the event this information is protected by the Federal Confidentiality of Alcohol and Drug Abuse Patient Records regulations: The Federal rules restrict any use of the information to criminally investigate or prosecute any alcohol or drug abuse patient.[facility] the event this information is protected by the Federal Confidentiality of Alcohol and Drug Abuse Patient Records regulations: The Federal rules restrict any use of the information to criminally investigate or prosecute any alcohol or drug abuse patient.[facility] the event this information is protected by the Federal Confidentiality of Alcohol and Drug Abuse Patient Records regulations: The Federal rules restrict any use of the information to criminally investigate or prosecute any alcohol or drug abuse patient.[facility] the event this information is protected by the Federal Confidentiality of Alcohol and Drug Abuse Patient Records regulations: The Federal rules restrict any use of the information to criminally investigate or prosecute any alcohol or drug abuse patient.[facility] the event this information is protected by the Federal Confidentiality of Alcohol and Drug Abuse Patient Records regulations: The Federal rules restrict any use of the information to criminally investigate or prosecute any alcohol or drug abuse patient.[facility] the event this information is protected by the Federal Confidentiality of Alcohol and Drug Abuse Patient Records regulations: The Federal rules restrict any use of the information to criminally investigate or prosecute any alcohol or drug abuse patient.[facility] the event this information is protected by the Federal Confidentiality of Alcohol and Drug Abuse Patient Records regulations: The Federal rules restrict any use of the information to criminally investigate or prosecute any alcohol or drug abuse patient.[facility] the event this information is protected by the Federal Confidentiality of Alcohol and Drug Abuse Patient Records regulations: The Federal rules restrict any use of the information to criminally investigate or prosecute any alcohol or drug abuse patient.[facility] the event this information is protected by the Federal Confidentiality of Alcohol and Drug Abuse Patient Records regulations: The Federal rules restrict any use of the information to criminally investigate or prosecute any alcohol or drug abuse patient.[facility] the event this information is protected by the Federal Confidentiality of Alcohol and Drug Abuse Patient Records regulations: The Federal rules restrict any use of the information to criminally investigate or prosecute any alcohol or drug abuse patient.[facility] the event this information is protected by the Federal Confidentiality of Alcohol and Drug Abuse Patient Records regulations: The Federal rules restrict any use of the information to criminally investigate or prosecute any alcohol or drug abuse patient.[facility] the event this information is protected by the Federal Confidentiality of Alcohol and Drug Abuse Patient Records regulations: The Federal rules restrict any use of the information to criminally investigate or prosecute any alcohol or drug abuse patient.[facility] the event this information is protected by the Federal Confidentiality of Alcohol and Drug Abuse Patient Records regulations: The Federal rules restrict any use of the information to criminally investigate or prosecute any alcohol or drug abuse patient.[facility] the event this information is protected by the Federal Confidentiality of Alcohol and Drug Abuse Patient Records regulations: The Federal rules restrict any use of the information to criminally investigate or prosecute any alcohol or drug abuse patient.[facility] WestIn the event this information is protected by the Federal Confidentiality of Alcohol and Drug Abuse Patient Records regulations: The Federal rules restrict any use of the information to criminally investigate or prosecute any alcohol or drug abuse patient.[facility] WestIn the event this information is protected by the Federal Confidentiality of Alcohol and Drug Abuse Patient Records regulations: The Federal rules restrict any use of the information to criminally investigate or prosecute any alcohol or drug abuse patient.[facility] WestIn the event this information is protected by the Federal Confidentiality of Alcohol and Drug Abuse Patient Records regulations: The Federal rules restrict any use of the information to criminally investigate or prosecute any alcohol or drug abuse patient.[facility] WestIn the event this information is protected by the Federal Confidentiality of Alcohol and Drug Abuse Patient Records regulations: The Federal rules restrict any use of the information to criminally investigate or prosecute any alcohol or drug abuse patient.[facility] WestIn the event this information is protected by the Federal Confidentiality of Alcohol and Drug Abuse Patient Records regulations: The Federal rules restrict any use of the information to criminally investigate or prosecute any alcohol or drug abuse patient.[facility] WestIn the event this information is protected by the Federal Confidentiality of Alcohol and Drug Abuse Patient Records regulations: The Federal rules restrict any use of the information to criminally investigate or prosecute any alcohol or drug abuse patient.[facility] WestIn the event this information is protected by the Federal Confidentiality of Alcohol and Drug Abuse Patient Records regulations: The Federal rules restrict any use of the information to criminally investigate or prosecute any alcohol or drug abuse patient.[facility] WestIn the event this information is protected by the Federal Confidentiality of Alcohol and Drug Abuse Patient Records regulations: The Federal rules restrict any use of the information to criminally investigate or prosecute any alcohol or drug abuse patient.[facility] WestIn the event this information is protected by the Federal Confidentiality of Alcohol and Drug Abuse Patient Records regulations: The Federal rules restrict any use of the information to criminally investigate or prosecute any alcohol or drug abuse patient.[facility] Reason for Visit (unrecogniz ed section and content) Reason Comments Outside Labs Results Reason Comments Establish Care Medicare Wellness Exam Reason Comments Radiology US Specialty Diagnoses / Procedures Referred By Contac t Referred To Contact US IMAGING Diagnoses Screening for abdominal aortic aneurysm Ex-smoker Procedures US SCREENING FOR AAA (2017) US ABDOMINAL AORTA REAL TIME SCREEN STUDY AAA Juan A Scanlon MD [address] [place] [address] Us Imaging Referral ID Status Reason Start Date Expiration Date V isits Requested Visits Authorized [id number] Closed Auto-Generate d Referral 03/09/2022 04/07/2023 1 1 Reason Comments Results Reason Comments Blood Pressure Check Reason Comments Blood Pressure Reason Comments Results Reason Comments outside imagina Addendum to CT scan Reason Comments Medicare Wellness Exam Reason Comments Outside [id number] Ordered Reason Comments Outside Reason Comments Results, Lab Reason Comments Ext / Labs Reason Comments Consult Reason Comments Orders Reason Comments Medicare Wellness Exam Care Teams (unrecognized sec tion and content) Breastfeeding Educator Relationship Specialty Start Date End Date Juan A Scanlon MD [address] [place] [address] PCP - General Family Practice 03/06/21 Breastfeeding Educator Relationship Specialty Start Date End Date Juan A Scanlon MD [address] [place] [address] PCP - General Family Practice 03/06/21 Breastfeeding Educator Relationship Specialty Start Date End Date Juan A Scanlon MD [address] [place] [address] PCP - General Family Practice 03/06/21 Breastfeeding Educator Relationship Specialty Start Date End Date Juan A Scanlon MD [address] [place] [address] PCP - General Family Practice 03/06/21 Breastfeeding Educator Relationship Specialty Start Date End Date Juan A Scanlon MD [address] [place] [address] PCP - General Family Practice 03/06/21 Breastfeeding Educator Relationship Specialty Start Date End Date Juan A Scanlon MD [facility] [place] [address] PCP - General Family Practice 03/06/21 Breastfeeding Educator Relationship Specialty Start Date End Date Juan A Scanlon MD [address] [place] [address] PCP - General Family Medicine 03/06/21 Breastfeeding Educator Relationship Specialty Start Date End Date Juan A Scanlon MD [address] [place] [address] PCP - General Family Medicine 03/06/21 Breastfeeding Educator Relationship Specialty Start Date End Date Juan A Scanlon MD [address] [place] [address] PCP - General Family Medicine 03/06/21 Breastfeeding Educator Relationship Specialty Start Date End Date Juan A Scanlon MD [address] [place] [address] PCP - General Family Medicine 03/06/21 Breastfeeding Educator Relationship Specialty Start Date End Date Juan A Scanlon MD [address] [place] [address] PCP - General Family Medicine 03/06/21 Breastfeeding Educator Relationship Specialty Start Date End Date Juan A Scanlon MD [address] [place] [address] PCP - General Family Medicine 03/06/21 Breastfeeding Educator Relationship Specialty Start Date End Date Juan A Scanlon MD [address] [place] [address] PCP - General Family Medicine 03/06/21 Breastfeeding Educator Relationship Specialty Start Date End Date Juan A Scanlon MD [address] [place] [address] PCP - General Family Medicine 03/06/21 Breastfeeding Educator Relationship Specialty Start Date End Date Juan A Scanlon MD [address] [facility] [place] [address] PCP - General Family Medicine 03/06/21 (unrecognized sect ion and content) No Status Records Found INFORMATION SOURCE (unrecogn ized section and content) DATE CREATED AUTHOR 05/03/2024 [facility] FOR RECORDS PERTAINING TO PATIENTS WHO ARE [...] BE BASED ON THE PRIMARY CLINICAL RECORDS. [employer] provides no warranty or guarantee of the accuracy or completeness of information in this document.
--- NOTE | 2024-05-04 06:39 | MRI_ITS ---
STUDY: MRI UPPER EXTREMITY RIGHT HUMERUS WITH T WITHOUT CONTRAST REASON FOR EXAM: Male, 78 years old. masses x 2 -- proximal humerus to include glenohumeral right LUMP TOP OF SHOULDER X3YRS AND BACK OF DISTAL-MID HUMERUS, NO PAIN, NO INJURY TECHNIQUE: Standardized fat and water weighted pulse sequences were obtained in all 3 orthogonal planes, pre-and post contrast administration. IV 19 cc clariscan was administered for the contrast portion of the examination. COMPARISON: None. FINDINGS: A full-thickness tear of the far anterior aspect of the supraspinatus tendon is present measuring 1.67 cm in diameter. 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 No significant undersurface spurring or impingement on the adjacent structures is demonstrated on this exam. A small subdeltoid bursal effusion is present. A small glenohumeral joint effusion is also visualized. Small linear tear in the anterior inferior aspect of the glenoid labrum with slight detachment noted on image 11/46 series 8. Normal remaining aspects of the glenoid labrum. Normal subcutis adipose space. There is no demonstrated solid, cystic, or lipomatous mass within the subcutaneous adipose space. Normal visualized muscles and fascia. Normal visualized neurovascular bundles. Normal humerus. No marrow edema or fracture is present. There are no abnormal lesions of the bony or soft tissue structures. No enhancing abnormalities are present. MRI/Upper Ext No Joint W/WO Cont IMPRESSION: 1. 1.67 cm full-thickness tear of the far anterior aspect of the supraspinatus tendon. 2. 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 No significant undersurface spurring or impingement on the adjacent structures is demonstrated on this exam. 3. A small subdeltoid bursal effusion is present. A small glenohumeral joint effusion is also visualized. 4. Small linear tear in the anterior inferior aspect of the glenoid labrum with slight detachment noted on image 11/46 series 8. Normal remaining aspects of the glenoid labrum. Electronically Signed: Tony Willingham MD at 14:56 EDT ,
[2024-05-04 07:09] LABS: CREATININE FINGERSTICK < 1.0 mg/dL (0.70-1.30); EGFR FINGERSTICK > 60.0000 mL/min (>60)
== END | disposition home or self-care (01) ==
LOC: MRI 06:21
PROVIDERS: PCP Family Medicine; Referring Provider Plastic Surgery; Visit Provider Plastic Surgery
DX: D48.19 Other specified neoplasm of uncertain behavior of connective and other soft tissue (principal)
CPT/HCPCS: 73220; A9575

== ENCOUNTER 2024-06-11 05:42 | Day surgery (SDC) | payer MEDICARE, OTHER, SELFPAY ==
--- NOTE | 2024-05-30 06:48 | EKG12_ITS ---
Test Reason : PRE OP Blood Pressure : */* mmHG Vent. Rate : 65 BPM Atrial Rate : 65 BPM P-R Int : 156 ms QRS Dur : 86 ms QT Int : 384 ms P-R-T Axes : 58 9 39 degrees QTcB Int : 399 ms Normal sinus rhythm Normal ECG Confirmed by WILL JENKINS, VICKEY ([id number]), editor managing director VLADIMIR MARINO ([id number]) on 05/31/2024 6:35:24 AM Referred By: Eliecer Crowley Confirmed By: VICKEY SOLIS MD
[2024-06-11] VITALS (7 sets, daily range): BP systolic 138–155; BP diastolic 77–87; PULSE 80–98; RESP 16–19; TEMP 36.1–36.3; O2SAT 99–100; BMI 30.7
[2024-06-11] MEDS: Lactated Ringers 1,000 ML 15 ML IV (06:23)
--- NOTE | 2024-06-11 07:23 | PCM.PRE.AN2 ---
ASA Classification* ASA Classification ASA Classification: 2 Assessment & Plan Anesthesia* Anesthesia Assessment Anesthesia Assessment: Discussed sedation and/or anesthesia options, risks, benefits, and alternatives with patient/parents/legal guardian/POA. Questions invited. The patient/parents/legal guardian/POA seems to understand and agrees to proceed with anesthesia plan. Reviewed the physical assessment, medical history, allergy history and patient home medications list prior to surgery/procedure/anesthetic and documented any changes. Performed airway and anesthesia risk assessments. Anesthesia Type Anesthesia Type: General History Source History Obtained from:: Patient and Chart Anesthesia Focused Assessment* Temperature: 97.3 F Pulse Rate: 80 Blood Pressure: 143/81 Respiratory Rate: 18 Pulse Ox: 100 Oxygen Delivery Method: Room Air Airway Assessment Mouth opens: >3 cm Mallampati Score: II Teeth Condition: Caps/Crowns (Patient has a crown right lower canine. It is tight. Patient also has an implant left upper jaw. Also tight) Neck Range of motion (ROM): Limited ROM (Consider GlideScope) Focused Labs Anesthesia Preop lab: CBC WBC 5.1 K/mm3 (4.4-11.0) 05/31/23 07:06 RBC 4.45 M/mm3 (4.6-6.2) L 05/31/23 07:06 Hgb 14.6 g/dL (13.0-16.5) 05/31/23 07:06 Hct 43.5 % (40-54) 05/31/23 07:06 Plt Count 177 K/mm3 (150-450) 05/31/23 07:06 CHEMISTRY Potassium 3.7 mmol/L (3.5-5.1) 04/22/15 11:40 Sodium 144 mmol/L (136-145) 04/22/15 11:40 BUN 23 mg/dL (7-18) H 04/22/15 11:40 Creatinine 1.08 mg/dL (0.70-1.30) 04/22/15 11:40 Glucose 123 mg/dL (70-110) H 04/22/15 11:40 COAG Pre-Assessment Diagnosis/Proposed Procedure Planned Operative Procedure(s): Hernia, Incisional Repair w poss Mesh Anesthesia History 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 When Was Last Pacemaker Check QUESTION #4 FULL TEXT: You/Your Family Experience fever (hyperthermia) with Anesthesia Last Oral Intake Last Oral intake: Last Oral Intake NPO since 04:30 06/11/24 06:19 Meds taken in AM with sips of No 06/11/24 06:19 water? Meds patient instructed to take am of surgery Any additional information?: Yes NPO since: 04:30 (Patient has super water with medications.) Meds taken in AM with sips of water?: Yes PONV PONV - melter supervisor: PONV - melter supervisor Female No 05/28/24 13:04 HX of Motion Sickness Yes 05/28/24 13:04 HX of N/V After Surgery No 05/28/24 13:04 Non-Smoker Yes 05/28/24 13:04 Duration of Surgery greater Yes 05/28/24 13:04 than 60 minutes Number of Risk Factors 3 05/28/24 13:04 PONV Score Moderate Risk 05/28/24 13:04 Height & Weight Height & Weight: Anesthesia: Height & Weight Height 5 ft 10 in 06/11/24 06:19 Weight: 97 kg 06/11/24 06:19 Body Mass Index (BMI) 30.7 06/11/24 06:19 Respiratory Assessment Respiratory Assessment - melter supervisor: Respiratory Tract Infection Hx - melter supervisor Hx Respiratory Tract Infection No 05/28/24 13:04 STOP Sleep Apnea STOP Sleep Apnea - melter supervisor: STOP Sleep Apnea - melter supervisor Hx Hypertension Yes: controlled with med 05/28/24 13:04 Hx Sleep Apnea No 05/28/24 13:04 CPAP BIPAP Do you snore loudly (louder No 05/28/24 13:04 than talking or can be heard Do you often feel tired/ No 05/28/24 13:04 fatigued/ sleepy during daytime? Has anyone observed you stop No 05/28/24 13:04 breathing during sleep? STOP Results Negative 05/28/24 13:04 QUESTION #5 FULL TEXT : Do you snore loudly (louder than talking or can be heard through closed doors)? 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 Specify any problems Hx of Preganancy in last 3 N/A 05/28/24 13:04 Months Nurse Filling Out Transfusion VCHRISTIN 05/28/24 13:04 & Questions: Date: 05/28/24 05/28/24 13:04 Time: 13:05 05/28/24 13:04 Patient unable to answer at this time (ie. confused, unrespo /Reproduction History /Reproductive History - melter supervisor: /Reproductive Hx- melter supervisor Hx Now Gestational Age (in weeks): EDC: Hx Hx Para Hx Section SAB Active Medications Active Medications: Current Medications Generic Name Dose Route Start Last Admin Trade Name Freq PRN Reason Stop Dose Admin Cefazolin Sodium 2 gm/ N/A 20 mls @ 400 mls/hr 06/11/24 09:30 IV 06/11/24 09:32 PREOP ONE Lactated Ringer's 1,000 mls @ 15 mls/hr 06/11/24 06:00 06/11/24 06:23 IV 06/16/24 19:19 15 mls/hr .Q48H ZACKARY Administration Protocol PFSH Medical History Urinary bladder incontinence Right rotator cuff tear Synovial cyst of shoulder Wears glasses Cancer Arthritis Gastric reflux Former smoker Leg cramps History of stress test Ganglion, right shoulder Mass of skin of right shoulder Skin cancer High blood pressure Cataracts, bilateral Home Medications ?Medication ?Instructions ?Recorded ?Last Taken ?Type aspirin 81 mg tablet,delayed 81 mg PO DAILY 10/09/18 06/01/24 History release (Adult Low Dose Aspirin) clobetasol 0.05 % topical cream 1 applic topical .PRN 10/09/18 Unknown History sildenafil 100 mg tablet (Viagra) 100 mg PO DAILY PRN ed 10/09/18 Unknown History metronidazole 1 % topical gel 1 applic topical DAILY 11/07/18 Unknown History doxycycline hyclate 20 mg tablet 20 mg PO DAILY 05/30/23 Unknown History famotidine 20 mg tablet (Acid 20 mg PO QHS 05/30/23 Unknown History Controller) ibuprofen 200 mg tablet (Advil) 200 mg PO BID 04/03/24 06/01/24 History losartan 25 mg tablet 25 mg PO DAILY 05/28/24 06/11/24 History Allergy/AdvReac Type Severity Reaction Status Date / Time lisinopril Allergy Intermediate COUGH Verified 06/11/24 06:08 Family History Mother Hypertension Skin cancer Surgical History History of prostatectomy History of ankle surgery History of nasal polypectomy History of hernia repair History of Achilles tendon repair Social History Smoking Status: Former smoker how long ago did patient quit smokin years ago alcohol intake: current details: A LITTLE HERE AND THERE substance use type: does not use additional social history: DOES USE ASPIRIN 81 MG DOES USE IBUPROFEN No vaping, no marijuana, no edibles Stopped smoking 35 yr ago Review of Systems (Anesthesia) ROS Narrative System reviewed and no additional complaints, except as documented.
--- NOTE | 2024-06-11 07:35 | PCM.HP.BLA ---
History and Physical Date of Admission: 06/11/24 Intake Vital Signs 04/03/2415:15 05/15/2413:29 05/17/2407:55 Height 5 ft 10 in 5 ft 10 in 5 ft 10 in Weight: 217 lb BMI 31.1 BP 184/71 H Blood Pressure Location Rt brachial Position Sitting Respiration 18 Pulse 74 Pulse Source Monitor Temp 97.1 F L Temp Source Temporal Pulse Oximetry (%) 97 Oxygen Delivery Method room air Intake Visit Reasons: INCISIONAL HERNIA Chief Complaint: Incisional hernia Is Consultant Required: No Is patient in pain?: No Allergies lisinopril Allergy (Intermediate, Verified 05/17/24 07:56) COUGH Medications ?Medication ?Instructions ?Recorded ?Confirmed ?Type Losartan Potassium 25 mg PO DAILY 09/03/16 05/17/24 History aspirin 81 mg tablet,delayed 81 mg PO DAILY 10/09/18 05/17/24 History release (Adult Low Dose Aspirin) clobetasol 0.05 % topical cream 1 applic topical .PRN 10/09/18 05/17/24 History sildenafil 100 mg tablet (Viagra) 100 mg PO DAILY PRN ed 10/09/18 05/17/24 History metronidazole 1 % topical gel 1 applic topical DAILY 11/07/18 05/17/24 History doxycycline hyclate 20 mg tablet 20 mg PO DAILY 05/30/23 05/17/24 History famotidine 20 mg tablet (Acid 20 mg PO DAILY 05/30/23 05/17/24 History Controller) docusate sodium 100 mg capsule 100 mg PO BID #20 caps 06/08/23 05/17/24 Rx (Colace) ibuprofen 200 mg tablet (Advil) 200 mg PO BID 04/03/24 05/17/24 History Have you fallen in the past year?: No PFSH Medical History (Updated 05/17/24 @ 09:[address] Eliecer Crowley MD) Wears glasses Cancer Arthritis Gastric reflux Former smoker Leg cramps History of stress test Ganglion, right shoulder Mass of skin of right shoulder Skin cancer High blood pressure Cataracts, bilateral Surgical History (Updated 05/17/24 @ 07:54 by Claudette Restrepo) History of prostatectomy History of ankle surgery History of nasal polypectomy History of hernia repair History of Achilles tendon repair Family History Mother Hypertension Skin cancer Social History Smoking Status: Former smoker how long ago did patient quit smokin years ago alcohol intake: current details: A LITTLE HERE AND THERE substance use type: does not use additional social history: DOES USE ASPIRIN 81 MG DOES USE IBUPROFEN No vaping, no marijuana, no edibles Stopped smoking 35 yr ago HPI HPI HPI: Patient is a 78-year-old male here with an incisional hernia from his prostatectomy. Patient reports that about a year ago he had a prostatectomy robotically and he was doing well until he started having bulging on the left side of his incision just superior to the umbilicus. Patient has had umbilical hernia repair in the past and the incision was made more superior than normal to avoid the mesh but now he has a hernia. ROS General General: No weight change, appetite, fatigue, colon cancer, breast cancer or weakness HEENT HEENT: No difficulty swallowing, eye injury, eye surgery, swollen glands or hoarseness Endo Endocrine: No thyroid disease, diabetes mellitus, thyroid cancer, Hair loss, heat intolerance or cold intolerance Skin Skin: No rash or changing moles Breast Breast: No left breast lump, right breast lump, nipple discharge, breast pain, abnormal mammogram, abnormal US or breast enlargement Musc Musculoskeletal: Yes arthritis; No back problems, rheumatoid arthritis, gout or joint pain Cardio Cardiovascular: Yes high blood pressure; No murmur, pacemaker, heart disease, atrial fibrillation, heart attack, heart stent, palpitations, shortness of breat with exertion or chest pain Psych Psychiatric: No depression, anxiety or hearing voices Resp Respiratory: No shortness of breath, No sleep apnea, No cough, No COPD, No asthma, No emphysema and No wheezing Gastro Gastrointestinal: No abdominal pain, No nausea or vomiting, No diarrhea, No constipation, No blood in stool, Yes acid reflux, No hemorrhoids, No ulcers, No gallbladder problem and No black,tarry stools Alejandro Hematologic: No blood thinners, No blood disorders, No bleeding, No anemia and No blood clots Neuro Neurologic: No system reviewed and no additional complaints, except as documented, No as per HPI, No abnormal gait, No abnormal hearing, No abnormal movements, No abnormal speech, No behavioral changes, No burning sensations, No confusion, No convulsions, No disequilibrium, No dizziness, No localized weakness, No frequent falls, No headache(s), No lack of coordination, No loss of vision, No memory loss, Yes numbness, No other visual disturbances, No radicular pain, No restless legs, No sensory deficit, No syncope, Yes tingling, No tremor(s), No weakness and No other Exam Const General: cooperative Orientation: alert and oriented x3 HENMT Head: normal to inspection Neck Neck: normal visual inspection and full ROM Chest Chest palpation & inspection: normal inspection of the chest Resp Effort & Inspection: normal respiratory effort Auscultation: clear to auscultation bilaterally Cardio Rate: regular rate Rhythm: regular rhythm GI Inspection: non-distended Palpation: soft, hernia ventral and nontender Skin General: no rashes or lesions noted Neuro General: patient alert and patient oriented x3 Extrem General: full ROM Psych Appearance: grossly normal Mental Status: mental status grossly normal Assessment and Plan Assessment and Plan (1) Ventral hernia: Status: Acute Qualifiers: Obstruction and gangrene presence: without obstruction or gangrene Qualified Code(s): K43.9 - Ventral hernia without obstruction or gangrene Plan: The patient has a ventral hernia at the site of his prior incision. He also has diastases. I discussed repairing it with suture as I believe this was an immediate recurrence and repair with suture may be easier and afford him being able to avoid more mesh. If the defect is over 1 cm then I will place mesh and try to overlap with his prior mesh. I discussed this with him in detail and he is agreeable to proceed. I discussed the risks including but not limited to bleeding, infection, injury underlying organs, recurrence of hernia. Patient understands all the risks and all of his questions were answered sufficiently. Eliecer Crowley MD Pager: [facility] [address] [place] [address], [address] [place] [address] Office: I have examined the patient and the H&P has been reviewed. There are no clinical changes since date of exam.
[2024-06-11] MEDS: Bupiv/Epi 0.25% 30 ML Vial (07:42)
[2024-06-11] MEDS: Cefazolin 2 GM in Syringe IV (07:56)
--- NOTE | 2024-06-11 08:57 | PCM.OPRPT ---
Operative Report (Standard) Operative Information Surgery/Procedure Performed: Incisional hernia repair with mesh under 3 cm Surgeon: Eliecer Crowley Date of Procedure: 06/11/24 Procedure Start Time: 08:18 Procedure Stop Time: 08:51 Pre-Operative Diagnosis: Incisional ventral hernia Post-Operative Diagnosis: Same Select all DRAINS/GRAFTS/IMPLANTS that apply: Implanted device Implanted device details: Medium Ventralex ST mesh Type of Anesthesia: General/Regional Estimated Blood Loss: 5 Specimen collected: No Description of surgery: The patient was brought back to the operating room and general anesthesia was induced. His prior incision was injected with local anesthetic and then reincised. The dissection was taken down through the scar tissue to the hernia. The hernia sac was dissected free and reduced. The hernia appeared to be approximately 2 cm. There was no way to get into the preperitoneal space due to scar tissue and previous mesh at the umbilicus. A Ventralex ST mesh was selected and placed into the abdomen and pulled up and sutured to the anterior fascia using 0 PDS suture. Next the fascia was closed over the mesh using interrupted 0 PDS sutures. The mesh was sutured to the prior umbilical mesh. After the defect was closed completely the area was irrigated and then closed the skin was closed with a running 3-0 Vicryl suture. Steri-Strips and bandages were applied. Patient was taken to PACU in stable condition. Surgical Findings: 2 cm hernia [employer] English Teacher talent program manager: Yes Cafeteria Worker: Andree Lema Tasks completed by assistant director of public works: Opening, Closing and Retracting Complications Complications: No Admit VTE Documentation VTE Mechan Device Prophylaxis: SCD's
--- NOTE | 2024-06-11 09:00 | PCM.POST.ANE ---
Anesthesia: Postop Eval I Current Vital Signs Temperature: 97 F Pulse Rate: 98 Blood Pressure: 155/83 Respiratory Rate: 19 Pulse Ox: 100 Assessment Airway patent: Yes Spontaneous unlabored respirations: Yes nausea: No Vomiting: No Anesthesia Complication: No Fluid Hydration Crystalloid volume administer (ml): 700 Total IV fluid infused: 700 Progress Note Anesthesia document: Postop Eval 1 completed: Yes
--- NOTE | 2024-06-11 09:01 | POSTOPAN2_ITS ---
Anesthesia Postop Eval I Sum Postop Eval Completion status Anesthesia document: Postop Eval 1 completed: Yes Anesthesia Postop Eval I Summary Anesthesia Postop Eval I Summary: Anesthesia Postop Eval I: Assessment Summary Airway patent Yes 06/11/24 09:00 KNOWLEDGE [email or web address] Spontaneous unlabored Yes 06/11/24 09:00 KNOWLEDGE [email or web address] respirations Mental status nausea No 06/11/24 09:00 KNOWLEDGE [email or web address] Vomiting No 06/11/24 09:00 KNOWLEDGE [email or web address] Anesthesia Postop Eval I: Fluid Summary Crystalloid volume administer 700 06/11/24 09:00 KNOWLEDGE [email or web address] (ml) Colloids volume administered ( ml) Blood Product volume administered (ml) Total IV fluid infused 700 06/11/24 09:00 KNOWLEDGE [email or web address] Anesthesia Postop Eval I: Summary Notes Anesthesia Complication No 06/11/24 09:00 [email or web address] [email or web address] Anesthesia Complication Comment: Post-operative progress note Anesthesia: Postop Eval II Evaluation Mental status: Awake Pain Level: 0 nausea: No Vomiting: No
--- NOTE | 2024-06-11 09:01 | EX.PCM.DISCH ---
Discharge Instructions Procedure Hernia Diet Discharge Diet: Light diet - advance as tolerated Activity Discharge Activity: May Not Drive (for 2-3 days or while taking narcotic pain meds.) and May Shower (with the bandage in place 1-2 days after surgery.) Lifting Restrictions: 20 pounds for 6 weeks. Additional Activity Instructions:: Climbing stairs is fine, walking is encouraged. Sitting in bed may be uncomfortable. Sitting up using your lateral muscles (sitting up sideways) is usually more comfortable. Do not drive, work heavy equipment of sign legal documents for 24 hours. Pain medications may cause nausea, you should typically eat light foods as you take your pain medications. Pain medications may also cause constipation. If you have difficulty with this, discuss with your doctor. Alternate ibuprofen and Tylenol for pain control, oxycodone for breakthrough pain. Ice as needed 20 minutes on, 20 minutes off Resume aspirin on Tuesday Dressing / Incision Call your doctor if your incision/area has: Continuous Slow Oozing, Sudden Increased Bleeding, Increased Pain/ Swelling, Increased Redness and Foul Smelling Discharge Call your doctor if you observe: Fever of 101 or Higher Suture Line Care: Avoid Pulling/Pushing and Avoid Pinching/Bending Remove Dressing in: 2 days (Remove clear bandages in 2 days, remove Steri-Strips in 7 to 10 days.) Cleanse incision/area with: Soap & Water Follow Up Care Please Follow Up With: Eliecer Crowley MD When: Please call to schedule 2 week follow up appointment. [phone] Test Results: Test results from this visit will be discussed in further detail at your follow-up appointment, if applicable. Discharge Plan Admission Attending Provider: Eliecer Crowley Primary Care Provider: Jayme Reyes Instructions Print Language: Malawian Discharge Orders/Prescriptions Prescriptions: New oxycodone 5 mg Tablet 5 - 10 mg PO Q4H PRN PRN (Reason: Pain Score 4-10) 5 Days Qty: 14 0RF No Action aspirin [Adult Low Dose Aspirin] 81 mg tablet,delayed release (DR/EC) 81 mg PO DAILY Patient Comments: STOP 5 DAYS PRIOR TO PROCEDURE sildenafil [Viagra] 100 mg tablet 100 mg PO DAILY PRN (Reason: ed) clobetasol 0.05 % cream 1 applic TOPICAL .PRN metronidazole 60 GM gel 1 applic topical DAILY famotidine [Acid Controller] 20 mg tablet 20 mg PO QHS doxycycline hyclate 20 mg tablet 20 mg PO DAILY ibuprofen [Advil] 200 mg tablet 200 mg PO BID losartan 25 mg tablet 25 mg PO DAILY Referrals / Follow Up: Jayme Reyes MD [Primary Care Provider] - Disposition Disposition (needs filled in before D/C Order can be placed): Home, Self Care
--- NOTE | 2024-06-11 09:01 | PCM.POSTANE2 ---
Anesthesia Postop Eval I Sum Postop Eval Completion status Anesthesia document: Postop Eval 1 completed: Yes Anesthesia Postop Eval I Summary Anesthesia Postop Eval I Summary: Anesthesia Postop Eval I: Assessment Summary Airway patent Yes 06/11/24 09:00 [email or web address] Spontaneous unlabored Yes 06/11/24 09:00 [email or web address] respirations Mental status nausea No 06/11/24 09:00 [email or web address] Vomiting No 06/11/24 09:00 [email or web address] Anesthesia Postop Eval I: Fluid Summary Crystalloid volume administer 700 06/11/24 09:00 [email or web address] (ml) Colloids volume administered ( ml) Blood Product volume administered (ml) Total IV fluid infused 700 06/11/24 09:00 [email or web address] Anesthesia Postop Eval I: Summary Notes Anesthesia Complication No 06/11/24 09:00 [email or web address] Anesthesia Complication Comment: Post-operative progress note Anesthesia: Postop Eval II Evaluation Mental status: Awake Pain Level: 0 nausea: No Vomiting: No
== END 2024-06-11 10:19 | disposition home or self-care (01) ==
LOC: SDC 05:43 → AC 05:43
PROVIDERS: PCP Family Medicine; Referring Provider Surgery; Visit Provider Surgery
PROC: (CPT 49591; principal; 2024-06-11 07:15)
DX: K43.2 Incisional hernia without obstruction or gangrene (principal); Z87.891 Personal history of nicotine dependence; I10 Essential (primary) hypertension; Z90.79 Acquired absence of other genital organ(s); Z79.899 Other long term (current) drug therapy; Z79.82 Long term (current) use of aspirin
CPT/HCPCS: 49591; 00832; 93005; C1781; J2405

== ENCOUNTER → 2024-10-17 | Outpatient (CLI) | payer MEDICARE, SELFPAY ==
[2024-10-17 12:14] LABS: PSA,Total- Diagnostic < 0.02 ng/mL (0.00-4.00)
== END | disposition home or self-care (01) ==
LOC: LAB 10:00
PROVIDERS: PCP Family Medicine; Referring Provider Nurse Practitioner; Visit Provider Nurse Practitioner
DX: C61 Malignant neoplasm of prostate (principal)
CPT/HCPCS: 36415; 84153

== ENCOUNTER 2024-11-06 07:11 | Day surgery (SDC) | payer MEDICARE, SELFPAY ==
[2024-11-06] VITALS (9 sets, daily range): BP systolic 107–126; BP diastolic 63–73; PULSE 70–88; RESP 16–18; TEMP 36.2–36.8; O2SAT 10–99; BMI 28.1
[2024-11-06] MEDS: Lactated Ringers 1,000 ML 15 ML IV (07:30)
--- NOTE | 2024-11-06 07:57 | HP.PCM_ITS ---
History and Physical Date of Admission: 11/06/24 Intake Vital Signs 06/11/2406:19 09/29/2511:57 Height 5 ft 10 in BP 167/82 H Blood Pressure Location Rt brachial Position Sitting Respiration 17 Pulse 101 H Pulse Source Monitor Pulse Oximetry (%) 96 Oxygen Delivery Method room air Intake Visit Reasons: SELF REFERRED SCREENING SCOPE Chief Complaint: self referred screen scope Is patient in pain?: No Allergies lisinopril Allergy (Intermediate, Verified 09/28/24 12:59) COUGH Medications ?Medication ?Instructions ?Recorded ?Confirmed ?Type aspirin 81 mg tablet,delayed 81 mg PO DAILY 10/09/18 09/28/24 History release (Adult Low Dose Aspirin) clobetasol 0.05 % topical cream 1 applic topical .PRN 10/09/18 09/28/24 History sildenafil 100 mg tablet (Viagra) 100 mg PO DAILY PRN ed 10/09/18 09/28/24 History metronidazole 1 % topical gel 1 applic topical DAILY 11/07/18 09/28/24 History doxycycline hyclate 20 mg tablet 20 mg PO DAILY 05/30/23 09/28/24 History famotidine 20 mg tablet (Acid 20 mg PO QHS 05/30/23 09/28/24 History Controller) ibuprofen 200 mg tablet (Advil) 200 mg PO BID 04/03/24 09/28/24 History losartan 25 mg tablet 25 mg PO DAILY 05/28/24 09/28/24 History Have you fallen in the past year?: No PFSH Medical History Ventral hernia Urinary bladder incontinence Right rotator cuff tear Synovial cyst of shoulder Wears glasses Cancer Arthritis Gastric reflux Former smoker Leg cramps History of stress test Ganglion, right shoulder Mass of skin of right shoulder Skin cancer High blood pressure Cataracts, bilateral Surgical History S/P hernia repair History of prostatectomy History of ankle surgery History of nasal polypectomy History of hernia repair History of Achilles tendon repair Family History Mother Hypertension Skin cancer Social History Smoking Status: Former smoker how long ago did patient quit smokin years ago alcohol intake: current details: A LITTLE HERE AND THERE substance use type: does not use additional social history: DOES USE ASPIRIN 81 MG DOES USE IBUPROFEN No vaping, no marijuana, no edibles Stopped smoking 35 yr ago HPI HPI HPI: Patient is a 78-year-old male here for screening colonoscopy. He reports that his last one was 10 years ago. He denies any abdominal pain or blood in the stool. He has no family history of colon cancer. ROS General General: No weight change, appetite, fatigue, colon cancer, breast cancer or weakness HEENT HEENT: No difficulty swallowing, eye injury, eye surgery, swollen glands or hoarseness Endo Endocrine: No thyroid disease, diabetes mellitus, thyroid cancer, Hair loss, heat intolerance or cold intolerance Skin Skin: No rash or changing moles Breast Breast: No left breast lump, right breast lump, nipple discharge, breast pain, abnormal mammogram, abnormal US or breast enlargement Musc Musculoskeletal: Yes arthritis; No back problems, rheumatoid arthritis, gout or joint pain Cardio Cardiovascular: Yes high blood pressure; No murmur, pacemaker, heart disease, atrial fibrillation, heart attack, heart stent, palpitations, shortness of breath with exertion or chest pain Psych Psychiatric: No depression, anxiety or hearing voices Resp Respiratory: No shortness of breath, No sleep apnea, No cough, No COPD, No asthma, No emphysema and No wheezing Gastro Gastrointestinal: No abdominal pain, No nausea or vomiting, No diarrhea, No constipation, No blood in stool, Yes acid reflux, No hemorrhoids, No ulcers, No gallbladder problem and No black,tarry stools Alejandro Hematologic: No blood thinners, No blood disorders, No bleeding, No anemia and No blood clots Neuro Neurologic: No system reviewed and no additional complaints, except as documented, No as per HPI, No abnormal gait, No abnormal hearing, No abnormal movements, No abnormal speech, No behavioral changes, No burning sensations, No confusion, No convulsions, No disequilibrium, No dizziness, No localized weakne ss, No frequent falls, No headache(s), No lack of coordination, No loss of vision, No memory loss, Yes numbness, No other visual disturbances, No radicular pain, No restless legs, No sensory deficit, No syncope, Yes tingling, No tremor(s), No weakness and No other Exam Const General: cooperative Orientation: alert and oriented x3 HENMT Head: normal to inspection Neck Neck: normal visual inspection and full ROM Chest Chest palpation & inspection: normal inspection of the chest Resp Effort & Inspection: normal respiratory effort Auscultation: clear to auscultation bilaterally Cardio Rate: regular rate Rhythm: regular rhythm GI Inspection: non-distended Palpation: soft and nontender Skin General: no rashes or lesions noted Neuro General: patient alert and patient oriented x3 Extrem General: full ROM Psych Appearance: grossly normal Mental Status: mental status grossly normal Assessment and Plan Assessment and Plan (1) Screen for colon cancer: Status: Acute Plan: I explained endoscopy in detail to the patient. I explained the risks including but not limited to stroke or heart attack with anesthesia, perforation of the GI tract, bleeding, infection. I explained that any of these could necessitate further emergency surgery. The patient understands and all questions were answered sufficiently. The patient wishes to proceed with procedure. Patient will hold his aspirin for 5 days. I explained that this would be his last screening colonoscopy and he understands. Eliecer Crowley MD Pager: [facility] [address] [place] [address], [address] [place] [address] Office: I have examined the patient and the H&P has been reviewed. There are no clinical changes since date of exam.
--- NOTE | 2024-11-06 08:03 | PCM.PRE.AN2 ---
ASA Classification* ASA Classification ASA Classification: 3 Assessment & Plan Anesthesia* Anesthesia Assessment Anesthesia Assessment: Discussed sedation and/or anesthesia options, risks, benefits, and alternatives with patient/parents/legal guardian/POA. Questions invited. The patient/parents/legal guardian/POA seems to understand and agrees to proceed with anesthesia plan. Reviewed the physical assessment, medical history, allergy history and patient home medications list prior to surgery/procedure/anesthetic and documented any changes. Performed airway and anesthesia risk assessments. Anesthesia Type Anesthesia Type: MAC History Source History Obtained from:: Patient and Chart Anesthesia Focused Assessment* Temperature: 97.1 F Pulse Rate: 70 Blood Pressure: 126/63 Respiratory Rate: 16 Pulse Ox: 99 Oxygen Delivery Method: Room Air Airway Assessment Mouth opens: 2 cm Mallampati Score: II Teeth Condition: Caps/Crowns (Patient has a couple crowns. They are tight.) Neck Range of motion (ROM): Limited ROM Focused Labs Anesthesia Preop lab: CBC WBC 5.1 K/mm3 (4.4-11.0) 05/31/23 07:06 05/31/23 RBC 4.45 M/mm3 (4.6-6.2) L 05/31/23 07:06 05/31/23 Hgb 14.6 g/dL (13.0-16.5) 05/31/23 07:06 05/31/23 Hct 43.5 % (40-54) 05/31/23 07:06 05/31/23 Plt Count 177 K/mm3 (150-450) 05/31/23 07:06 05/31/23 CHEMISTRY Potassium 3.7 mmol/L (3.5-5.1) 04/22/15 11:40 04/22/15 Sodium 144 mmol/L (136-145) 04/22/15 11:40 04/22/15 BUN 23 mg/dL (7-18) H 04/22/15 11:40 04/22/15 Creatinine 1.08 mg/dL (0.70-1.30) 04/22/15 11:40 04/22/15 Glucose 123 mg/dL (70-110) H 04/22/15 11:40 04/22/15 COAG Pre-Assessment Diagnosis/Proposed Procedure Planned Operative Procedure(s): CSCOPE Anesthesia History Anesthesia History - cryptologist: Anesthesia History - cryptologist Hx Hospitalization No 11/02/24 12:12 Any Problems With Anesthesia No 11/02/24 12:12 Cholinesterase deficiency No 11/02/24 12:12 You/Your Family Experience No 11/02/24 12:12 fever (hyperthermia) with Relationship Recent Exposure to Contagious No 11/06/24 07:38 Disease Does patient have nerve No 11/02/24 12:12 stimulator Patient instructed to have device shut off --Does patient have Pacemaker No 11/06/24 07:38 or ICD? When Was Last Pacemaker Check QUESTION #4 FULL TEXT: You/Your Family Experience fever (hyperthermia) with Anesthesia Last Oral Intake Last Oral intake: Last Oral Intake NPO since 20:30 11/06/24 07:38 Meds taken in AM with sips of Yes 11/06/24 07:38 water? Meds patient instructed to losartan 11/06/24 07:38 take am of surgery Any additional information?: Yes Meds taken in AM with sips of water?: Yes PONV PONV - cryptologist: PONV - cryptologist Female No 11/02/24 12:12 HX of Motion Sickness No 11/02/24 12:12 HX of N/V After Surgery No 11/02/24 12:12 Non-Smoker Yes 11/02/24 12:12 Duration of Surgery greater No 11/02/24 12:12 than 60 minutes Number of Risk Factors 1 11/02/24 12:12 PONV Score Low Risk 11/02/24 12:12 Height & Weight Height & Weight: Anesthesia: Height & Weight Height 5 ft 10 in 11/06/24 07:38 Weight: 89 kg 11/06/24 07:38 Body Mass Index (BMI) 28.1 11/06/24 07:38 Respiratory Assessment Respiratory Assessment - cryptologist: Respiratory Tract Infection Hx - cryptologist Hx Respiratory Tract Infection No 11/02/24 12:12 STOP Sleep Apnea STOP Sleep Apnea - cryptologist: STOP Sleep Apnea - cryptologist Hx Hypertension Yes: controlled with med 11/02/24 12:12 Hx Sleep Apnea No 11/02/24 12:12 CPAP BIPAP Do you snore loudly (louder No 11/02/24 12:12 than talking or can be heard Do you often feel tired/ No 11/02/24 12:12 fatigued/ sleepy during daytime? Has anyone observed you stop No 11/02/24 12:12 breathing during sleep? STOP Results Negative 11/02/24 12:12 QUESTION #5 FULL TEXT : Do you snore loudly (louder than talking or can be heard through closed doors)? Tobacco Use History Tobacco Use History - cryptologist: Tobacco Use History - cryptologist Tobacco Use Smoking Status Former smoker 11/02/24 12:12 Hx Tobacco Use No 11/02/24 12:12 Years Smoking Packs Smoked per Day Smoking Cessation Date was No - quit smoking greater 11/02/24 12:12 within the last 15 years than 15 years ago Hx Smoking Cessation Date Hx Smoking Cessation No 11/02/24 12:12 Counseling Hematologic Medial History Hematologic Hx - cryptologist: Hematologic Medical Hx - vp training Hx of Blood Transfusion No 11/02/24 12:12 Hx of Transfusion in last 3 No 11/02/24 12:12 Months Date of Last Transfusion (if within last 3 months) Ever experience any problems No 11/02/24 12:12 with transfusion(s)? Specify any problems Hx of Preganancy in last 3 N/A 11/02/24 12:12 Months Nurse Filling Out Transfusion DSCHRIBER 11/02/24 12:12 & Questions: Date: 11/02/24 11/02/24 12:12 Time: 12:13 11/02/24 12:12 Patient unable to answer at this time (ie. confused, unrespo /Reproduction History /Reproductive History - cryptologist: /Reproductive Hx- cryptologist Hx Now No 11/02/24 12:12 Gestational Age (in weeks): EDC: Hx Hx Para Hx Section SAB No 11/02/24 12:12 Active Medications Active Medications: Current Medications Generic Name Dose Route Start Last Admin Trade Name Freq PRN Reason Stop Dose Admin Lactated Ringer's 1,000 mls @ 15 mls/hr 11/06/24 07:30 11/06/24 07:30 IV 15 mls/hr .Q48H ZACKARY Administration PFSH Medical History Urinary bladder incontinence Right rotator cuff tear Synovial cyst of shoulder Ventral hernia Wears glasses Cancer Arthritis Gastric reflux Former smoker Leg cramps History of stress test Ganglion, right shoulder Mass of skin of right shoulder Skin cancer High blood pressure Cataracts, bilateral Home Medications ?Medication ?Instructions ?Recorded ?Last Taken ?Type aspirin 81 mg tablet,delayed 81 mg PO DAILY 10/09/18 10/26/24 History release (Adult Low Dose Aspirin) clobetasol 0.05 % topical cream 1 applic topical .PRN 10/09/18 Unknown History sildenafil 100 mg tablet (Viagra) 100 mg PO DAILY PRN ed 10/09/18 Unknown History metronidazole 1 % topical gel 1 applic topical DAILY 11/07/18 Unknown History famotidine 20 mg tablet (Acid 20 mg PO QHS 05/30/23 Unknown History Controller) losartan 25 mg tablet 25 mg PO DAILY 05/28/24 11/06/24 History acetaminophen 500 mg tablet 500 mg PO BID 11/02/24 Unknown History (Acetaminophen Extra Strength) Allergy/AdvReac Type Severity Reaction Status Date / Time lisinopril Allergy Intermediate COUGH Verified 11/06/24 07:37 Family History Mother Hypertension Skin cancer Surgical History Hx of hernia repair S/P hernia repair History of prostatectomy History of ankle surgery History of nasal polypectomy History of hernia repair History of Achilles tendon repair Social History Smoking Status: Former smoker how long ago did patient quit smokin years ago alcohol intake: current details: A LITTLE HERE AND THERE substance use type: does not use additional social history: DOES USE ASPIRIN 81 MG DOES USE IBUPROFEN No vaping, no marijuana, no edibles Stopped smoking 35 yr ago Review of Systems (Anesthesia) ROS Narrative System reviewed and no additional complaints, except as documented.
--- NOTE | 2024-11-06 09:02 | OP.COLON_ITS ---
Patient Name: Erwin Crisostomo Procedure Date: 11/06/2024 8:37 AM Date of : 1945 Age: 78 Procedure: Colonoscopy Indications: Screening for colorectal malignant neoplasm Providers: Eliecer Crowley MD Referring MD: Jayme Reyes MD Medicines: Propofol per Anesthesia Patient Profile: This is a 78 year old male. Refer to note in patient chart for documentation of history and physical. Last Colonoscopy: 10 years ago. Complications: No immediate complications. Procedure: Pre-Anesthesia Assessment: - Prior to the procedure, a History and Physical was performed, and patient medications and allergies were reviewed. The patient's tolerance of previous anesthesia was also reviewed. The risks and benefits of the procedure and the sedation options and risks were discussed with the patient. All questions were answered, and informed consent was obtained. Prior Anticoagulants: The patient has taken no anticoagulant or antiplatelet agents. After reviewing the risks and benefits, the patient was deemed in satisfactory condition to undergo the procedure. After I obtained informed consent, the scope was passed under direct vision. Throughout the procedure, the patient's blood pressure, pulse, and oxygen saturations were monitored continuously. The pediatric colonoscope was introduced through the anus and advanced to the cecum, identified by appendiceal orifice and ileocecal valve. The colonoscopy was performed without difficulty. The patient tolerated the procedure well. The quality of the bowel preparation was good. The ileocecal valve, appendiceal orifice, and rectum were photographed. Scope In: 8:46:31 AM Scope Withdrawal Time 0 hours 4 minutes 46 seconds Scope Out: 8:59:11 AM Total Procedure Duration Time 0 hours 12 minutes 40 seconds Findings: The entire examined colon appeared normal on direct and retroflexion views. Impression: - The entire examined colon is normal on direct and retroflexion views. - No specimens collected. Recommendation: - Discharge patient to home. - Resume previous diet. - Continue present medications. - Repeat colonoscopy is not recommended due to current age (66 years or older) for screening purposes. Procedure Code(s): --- Professional --- 88986, Colonoscopy, flexible; diagnostic, including collection of specimen(s) by brushing or washing, when performed (separate procedure) Diagnosis Code(s): --- Professional --- Z12.11, Encounter for screening for malignant neoplasm of colon CPT copyright 2021 [employer]. All rights reserved. The codes documented in this report are preliminary and upon information coder review may be revised to meet current compliance requirements. Eliecer Crowley MD 11/06/2024 9:02:06 AM This report has been signed electronically. Number of Addenda: 0 Note Initiated On: 11/06/2024 8:37 AM
--- NOTE | 2024-11-06 09:03 | OP.CCLET_ITS ---
11/06/2024 Jayme Reyes MD Re : Colonoscopy procedure for Erwin Crisostomo Dear Dr. Reyes This procedure was performed on Wednesday, November 06, 2024. My impressions and recommendations are as follows: Impressions : - The entire examined colon is normal on direct and retroflexion views. - No specimens collected. Recommendations : - Discharge patient to home. - Resume previous diet. - Continue present medications. - Repeat colonoscopy is not recommended due to current age (66 years or older) for screening purposes. My findings are described in the full procedure note, which is enclosed. If I can be of further assistance, please feel free to contact me at Doctor phone number(s): , Work: . Sincerely, Eliecer Crowley MD 11/06/2024 9:02:06 AM This report has been signed electronically.
--- NOTE | 2024-11-06 09:06 | PCM.POST.ANE ---
Anesthesia: Postop Eval I Current Vital Signs Temperature: 97.7 F Pulse Rate: 87 Blood Pressure: 116/66 Respiratory Rate: 16 Pulse Ox: 94 Oxygen Delivery Method: Room Air Assessment Airway patent: Yes Spontaneous unlabored respirations: Yes Mental status: Asleep nausea: No Vomiting: No Anesthesia Complication: No Fluid Hydration Crystalloid volume administer (ml): 600 Total IV fluid infused: 600 Progress Note Anesthesia document: Postop Eval 1 completed: Yes
--- NOTE | 2024-11-06 13:09 | PCM.POSTANE2 ---
Anesthesia Postop Eval I Sum Postop Eval Completion status Anesthesia document: Postop Eval 1 completed: Yes Anesthesia Postop Eval I Summary Anesthesia Postop Eval I Summary: Anesthesia Postop Eval I: Assessment Summary Airway patent Yes 11/06/24 09:07 [email or web address] Spontaneous unlabored Yes 11/06/24 09:07 [email or web address] respirations Mental status Asleep 11/06/24 09:07 [email or web address] nausea No 11/06/24 09:07 [email or web address] Vomiting No 11/06/24 09:07 [email or web address] Anesthesia Postop Eval I: Fluid Summary Crystalloid volume administer 600 11/06/24 09:07 [email or web address] (ml) Colloids volume administered ( ml) Blood Product volume administered (ml) Total IV fluid infused 600 11/06/24 09:07 [email or web address] Anesthesia Postop Eval I: Summary Notes Anesthesia Complication No 11/06/24 09:07 [email or web address] Anesthesia Complication Comment: Post-operative progress note Anesthesia: Postop Eval II Evaluation Mental status: Awake and Calm Pain Level: 0 nausea: No Vomiting: No Complications Anesthesia Complication: No
== END 2024-11-06 09:36 | disposition home or self-care (01) ==
LOC: EN 07:12 → AC 07:13
PROVIDERS: PCP Family Medicine; Referring Provider Family Medicine; Visit Provider Surgery
PROC: 0DJD8ZZ Inspection of Lower Intestinal Tract, Via Natural or Artificial Opening Endoscopic (ICD-10-PCS; CPT 45378; principal; 2024-11-06 08:10)
DX: Z12.11 Encounter for screening for malignant neoplasm of colon (principal); K21.9 Gastro-esophageal reflux disease without esophagitis; I10 Essential (primary) hypertension; Z79.82 Long term (current) use of aspirin; Z79.899 Other long term (current) drug therapy; Z87.891 Personal history of nicotine dependence
CPT/HCPCS: G0121; J2405

== ENCOUNTER → 2025-01-29 | Outpatient (CLI) | payer MEDICARE, SELFPAY | END | disposition home or self-care (01) | LOC: LAB 15:47 → LABSPEC 15:48 | PROVIDERS: PCP Family Medicine; Referring Provider Urology; Visit Provider Urology | DX: N39.0 Urinary tract infection, site not specified (principal) | CPT/HCPCS: 87086 ==